=== PATIENT | female | born 1930 | race Caucasian/White ===

== ENCOUNTER 2018-04-08 12:48 | Day surgery (SDC) | payer MEDICARE, OTHER ==
[2018-04-05 18:07] VITALS: BP 109/55; PULSE 91; RESP 28
[~2018-04-08] VITALS: Ht 167.6 cm; Wt 93.6 kg
[~2018-04-08 12:48] MED LIST: PROPOFOL 200 MG INJ ONE
--- NOTE | 2018-04-08 14:28 | PREAC ---
Date/Time of Note Date/Time of Note DATE: 04/08/18 TIME: 14:26 Anesthesia Eval and Record Evaluation Time Pre-Procedure Interview DATE: 04/08/18 TIME: 14:26 Age 88 Sex female NPO: 8 hrs Preoperative diagnosis anemia Planned procedure colonoscopy Past Medical History Past Medical History: Includes Cardio: HTN, Dyslipidemia, IA, CAD, CABG, Arrythmia, CHF Endo: Diabetes Pulm: Smoking Hx, COPD, Other (resp failure) Musculoskeletal: Osteoarthritis Renal: CKD GI: GERD Heme: Anemia Surgery & Anesthesia Issues No known issue Meds Anticoagulation: No Beta Darian within 24 hr: No Reason Beta Darian not given: Pt. not on B-Darian Meds reviewed: Yes Allergies Coded Allergies: No Known Allergy (Unverified , 03/28/18) Allergies Reviewed: Yes Labs/Studies Labs Reviewed: Reviewed by anesthesiologist test: Negative Studies: ECG Pre-procedure Exam Last vitals Vital Signs Date Temp Pulse Resp B/P (MAP) Pulse Ox O2 O2 Flow FiO2 Time Delivery Rate 04/05/18 98.9 91 28 109/55 28 Mechanical 18:07 (73) Ventilator Airway: Adequate mouth opening, Adequate thyromental dist Mallampati: Mallampati II Teeth: Normal Lung: Normal Heart: Normal ASA Physical Status ASA physical status: 3 Emergency: None Planned Anesthetic General/MAC: ETT Pre-operative Attestations Prior to commencing anesthesia and surgery, the patient was re-evaluated, there was verification of: *The patient's identity *The results of appropriate recent lab work and preoperative vital signs *The above evaluation not changing prior to induction *Anesthetic plan, risk benefits, alternative and complications discussed with patient/family; questions answered; patient/family understands, accepts and wishes to proceed. MIGUEL SHRESTHA Apr 08, 2018 14:28
[2018-04-08 15:33] VITALS: BP 131/72; RESP 25
--- NOTE | 2018-04-08 15:36 | HPN ---
Date/Time of Note Date/Time of Note DATE: 04/08/18 TIME: 15:36 Interval H&P Admission Note Pt. seen H&P reviewed: No system changes LORA STANLEY MD Apr 08, 2018 15:36
[2018-04-08 15:38] VITALS: BP 139/70; PULSE 94; RESP 33
[2018-04-08 15:43] VITALS: BP 130/71; PULSE 94; RESP 27
[2018-04-08 15:48] VITALS: BP 135/70; PULSE 92; RESP 24
[2018-04-08 15:53] VITALS: BP 132/73; PULSE 92; RESP 22
== END 2018-04-08 16:08 | disposition other institution (70) ==
LOC: GIL 12:48
PROVIDERS: ATTEND Internal Medicine Gastroenterology
DX: R19.5 Other fecal abnormalities (principal); D12.2 Benign neoplasm of ascending colon; D12.5 Benign neoplasm of sigmoid colon; K64.4 Residual hemorrhoidal skin tags; E78.5 Hyperlipidemia, unspecified; I25.2 Old myocardial infarction; I25.10 Atherosclerotic heart disease of native coronary artery without angina pectoris; I11.0 Hypertensive heart disease with heart failure; I50.9 Heart failure, unspecified; J44.9 Chronic obstructive pulmonary disease, unspecified
CPT/HCPCS: 88305; 94002

== ENCOUNTER 2018-05-01 22:19 | Inpatient (IN) | payer MEDICARE, OTHER ==
[~2018-05-01] VITALS: Ht 165.1 cm; Wt 100.2 kg
[2018-05-01] MEDS ORDERED: IOHEXOL 300MG/ML 150 ML BTL ONE (23:41)
[2018-05-01] MEDS ORDERED: SOD CHLORIDE 0.9% 100 ML ONE (23:41)
[2018-05-02] VITALS (19 sets, daily range): BP systolic 96–119; BP diastolic 51–60; PULSE 85–111; RESP 18–28; Ht 165.1 cm; Wt 100.2 kg
--- NOTE | 2018-05-02 03:15 | ERD ---
ER Documentation Chief Complaint Chief Complaint BIB [facility] transport,from [facility],bleed on trach site HPI This is an 88-year-old trach to vent patient brought in from [facility] for low H&H and possible tracheal bleeding. Patient himself cannot relate any history. History is per transfer sheet and and co op crew. According to paramedics, she had tracheal site oozing for the past few days. Based on the blood test today noted a low H&H and sent her in for further evaluation ROS All systems reviewed and are negative except as per history of present illness. Allergies Allergies: Coded Allergies: No Known Allergy (Unverified , 03/28/18) PMhx/Soc History of Surgery: Yes (coronary bypass, total knee replacement, ) Anesthesia Reaction: No Hx Neurological Disorder: Yes (neuropathy, ) Hx Respiratory Disorders: Yes (copd, TRACH TO VENT ) Hx Cardiac Disorders: Yes (htn, pad, dl, a fib) Hx Psychiatric Problems: No Hx Miscellaneous Medical Probl: No Hx Alcohol Use: No Hx Substance Use: No Hx Tobacco Use: No Smoking Status: Never smoker Physical Exam Vitals Vital Signs Date Temp Pulse Resp B/P (MAP) Pulse Ox O2 O2 Flow FiO2 Time Delivery Rate 05/01/18 99.9 105 18 104/51 99 Mechanical 22:33 (68) Ventilator 05/01/18 99.9 111 18 104/51 100 22:24 (68) Physical Exam Const: No acute distress Head: Atraumatic Eyes: Normal Conjunctiva ENT: Normal External Ears, Nose and Mouth. Neck: Full range of motion. No meningismus. Resp: Clear to auscultation bilaterally Cardio: Regular rate and rhythm, no murmurs Abd: Soft, non tender, non distended. Normal bowel sounds Skin: No petechiae or rashes Back: No midline or flank tenderness Ext: No cyanosis, or edema Neur: Awake and alert Psych: Normal Mood and Affect Result Diagram: 05/01/18225205/01/182253 Results 24 hrs Laboratory Tests Test 05/01/18 22:53 05/01/18 22:54 White Blood Count 20.8 10^3/ul Red Blood Count 1.66 10^6/ul Hemoglobin 5.4 g/dl Hematocrit 17.2 % Mean Corpuscular Volume 103.6 fl Mean Corpuscular Hemoglobin 32.5 pg Mean Corpuscular Hemoglobin Concent 31.4 g/dl Red Cell Distribution Width 17.2 % Platelet Count 370 10^3/UL Mean Platelet Volume 10.0 fl Immature Granulocytes % 1.300 % Neutrophils % % Segmented Neutrophils % (Manual) 86 % Band Neutrophils % (Manual) 2 % Lymphocytes % % Lymphocytes % (Manual) 10 % Monocytes % % Monocytes % (Manual) 1 % Eosinophils % % Eosinophils % (Manual) 1 % Basophils % % Nucleated Red Blood Cells % 0.1 /100WBC Immature Granulocytes # 0.280 10^3/ul Neutrophils # 10^3/ul Neutrophils # (Manual) 18.0 10^3/ul Band Neutrophils # 0.4 10^3/ul Lymphocytes (Manual) 2.0 10^3/ul Lymphocytes # 10^3/ul Monocytes # 10^3/ul Monocytes # (Manual) 0.2 10^3/ul Eosinophils # 10^3/ul Basophils # 10^3/ul Nucleated Red Blood Cells # 10^3/ul Pathologist Review (Hematology) YES Platelet Estimate NORMAL Polychromasia 3+ Hypochromasia 2+ Anisocytosis 1+ Microcytosis 1+ Prothrombin Time 15.4 Sec Prothrombin Time Ratio 1.2 INR International Normalized Ratio 1.21 Activated Partial Thromboplast Time 30.0 Sec Sodium Level 128 mmol/L Potassium Level 4.8 mmol/L Chloride Level 83 mmol/L Carbon Dioxide Level 34 mmol/L Anion Gap 11 Blood Urea Nitrogen 69 mg/dl Creatinine 1.27 mg/dl Est Glomerular Filtrat Rate mL/min mL/min Glucose Level 197 mg/dl Calcium Level 8.5 mg/dl Total Bilirubin 0.2 mg/dl Direct Bilirubin 0.00 mg/dl Indirect Bilirubin 0.2 mg/dl Aspartate Amino Transf (AST/SGOT) 44 IU/L Alanine Aminotransferase (ALT/SGPT) 23 IU/L Alkaline Phosphatase 105 IU/L Total Protein 6.6 g/dl Albumin 2.8 g/dl Globulin 3.80 g/dl Albumin/Globulin Ratio 0.73 Lipase 73 U/L Current Medications Medications Dose Sig/Radha Start Time Status Last (Trade) Ordered Route PRN Stop Time Admin Dose Reason Admin Sodium 100 ml @ ud STK-MED 05/01/18 DC 05/01/18 Chloride ONCE .ROUTE 23:41 23:42 05/01/18 23:42 Iohexol 150 ml STK-MED 05/01/18 DC 05/01/18 (Omnipaque ONCE .ROUTE 23:41 23:42 300mg/ ml) 05/01/18 23:42 Procedures/MDM Emergency department course: Patient seen about by triage nurse. Placed in bed from evaluation. Intravenous access established. Had blood work done. A stat CT scan of the neck with contrast to rule out tracheal artery bleeding. Patient crossmatched for multiple units of blood. Diagnostic data: EKG: Rate/Rhythm: [Normal Sinus Rhythm] QRS, ST, T-waves: [No changes consistent w/ acute ischemia] Impression: [No evidence of ischemia or arrhythmia] Chest X-ray 1V Interpreted by me: Soft Tissue: No acute abnormalities Bones: No acute abnormalities Mediastinum/Cardiac Silhouette/Lungs: [No acute abnormalities] CT neck soft tissue with IV contrast shows possible tracheal artery terminal branch bleeding. Please see the radiologist for dictation full report Medical decision making: This is a 88-year female with low H&H has been crossmatch for 2 units but also has possible tracheal artery bleeding. On-call ENT was consulted and will see the patient in the morning. On-call physician was notified of admission Dr. Ocampo Departure Diagnosis: Primary Impression: Tracheal hemorrhage Condition: Serious JAMES GIRARD May 02, 2018 03:15
[2018-05-02] MEDS ORDERED: LINA5TAB GTB (06:06)
[2018-05-02] MEDS ORDERED: MAGN400O19 GTB (06:06)
[2018-05-02] MEDS ORDERED: FOLI-49 G-TUBE (06:06)
[2018-05-02] MEDS ORDERED: MINE133E23 PR (06:06)
[2018-05-02] MEDS ORDERED: ATOR40TA68 G-TUBE (06:06)
[2018-05-02] MEDS ORDERED: CHLO118L3 TOP (06:06)
[2018-05-02] MEDS ORDERED: PEG15DRO4 OP (06:06)
[2018-05-02] MEDS ORDERED: ALLO100T GTB (06:06)
[2018-05-02] MEDS ORDERED: BUME1TAB G-TUBE (06:06)
[2018-05-02] MEDS ORDERED: CHOL100062 G-TUBE (06:06)
[2018-05-02] MEDS ORDERED: ASPI-535 G-TUBE (06:06)
[2018-05-02] MEDS ORDERED: GLYC30DR4 OP (06:06)
[2018-05-02] MEDS ORDERED: LORA1TAB GTB (06:06)
[2018-05-02] MEDS ORDERED: MIDO5TAB GTB (06:06)
[2018-05-02] MEDS ORDERED: LANT3I SC (06:06)
[2018-05-02] MEDS ORDERED: BISA10SU55 RC (06:06)
[2018-05-02] MEDS ORDERED: LEVO175T6 GTB (06:06)
[2018-05-02] MEDS ORDERED: LANS30CA GTB (06:18)
[2018-05-02] MEDS ORDERED: NOVO3I SC (06:18)
[2018-05-02] MEDS ORDERED: SAN30GM TOP (06:18)
[2018-05-02] MEDS ORDERED: ACET325T45 GTB (06:18)
[2018-05-02] MEDS ORDERED: TUBE5VIA3 ID (06:18)
[2018-05-02] MEDS ORDERED: FENO48TA4 GTB (06:18)
[2018-05-02] MEDS ORDERED: CLOP75TA19 G-TUBE (06:18)
[2018-05-02] MEDS ORDERED: LORA1TAB G-TUBE (07:49)
[2018-05-02] MEDS ORDERED: IPRA3AMP29 INHALATION (07:49)
[2018-05-02] MEDS ORDERED: PENDING SANTYL ORDER FOR WOUND CARE XX PRN (08:00)
[2018-05-02] MEDS ORDERED: ACETAMINOPHEN 325 MG TAB GTB PRN (08:30)
[2018-05-02] MEDS ORDERED: GLUCOSE GEL 15 GRAM TUBE BUCCAL PRN (08:30)
[2018-05-02] MEDS ORDERED: LORAZEPAM 1 MG TAB GTB PRN (08:30)
[2018-05-02] MEDS ORDERED: BISACODYL 10 MG SUPP PR PRN (08:30)
[2018-05-02] MEDS ORDERED: ALBUTEROL/IPRATROPIUM (NEB) 3 ML AMP NEB PRN (08:30)
[2018-05-02] MEDS ORDERED: MAGNESIUM HYDROXIDE 30ML CUP GTB PRN (08:30)
[2018-05-02] MEDS ORDERED: GLUCOSE GEL 15 GRAM TUBE PO PRN ×2 (08:30)
[2018-05-02] MEDS ORDERED: DEXTROSE 50% 50 ML SYRINGE IV PRN ×2 (08:30)
[2018-05-02] MEDS ORDERED: COLLAGENASE 30 GM TUBE TOP PRN (08:30)
[2018-05-02] MEDS ORDERED: GLUCAGON 1 MG INJ IM PRN (08:30)
--- NOTE | 2018-05-02 08:41 | CONS ---
Assessment/Plan Assessment/Plan Assessment/Plan (Daily) 88-year-old female with long-standing tracheostomy tube who presents with bleeding from the tracheostomy stoma. Upon endoscopic examination there is no blood in the trachea and no active bleeding. Upon removal of the tracheostomy tube the stoma appears in excellent condition and there is no ongoing bleeding. Endoscopic examination of the upper airway demonstrates normal nasal passage, pharynx and larynx. Given these findings it seems quite unlikely that she has a TI fistula as the bleeding from such a problem would not be subtle. If the patient has recurrent bleeding from the tracheostomy I would recommend consulting interventional radiology for more precise evaluation of the vasculatu re and possible embolization procedure. Antoni Minor MD, S Otolaryngology-Head and Neck Surgery [facility] Office: Consultation Date/Type/Reason Admit Date/Time May 02, 2018 at 01:32 Date of Consultation: May 02, 2018 Type of Consult Otolaryngology Reason for Consultation Tracheostomy bleeding Requesting Provider: JAMES GIRARD Date/Time of Note DATE: 05/02/18 TIME: 08:36 Hx of Present Illness Consultation - [facility] Otol[facility]ology-Head and Neck Surgery HPI: 88-year-old female with long-standing tracheostomy, size 6 DCT, who was transferred to the emergency room overnight due to bleeding from the tracheostomy. CTA demonstrated suspicion for an arterial bleed from the external carotid artery. The patient has a low hemoglobin level as well. Upon examination by the ED physician the patient was noted to be stable with no bleeding. I was consulted to further assess the patient given these findings. Patient is alert but unable to communicate and history is gathered from records review, physicians, and nursing staff. Reportedly the patient is also having vaginal bleeding. PAST MEDICAL HISTORY: Sacral ulcer Dysphasia Peripheral vascular disease COPD Hypothyroidism Diabetes type 2 Hyperlipidemia Anxiety Hypertension Heart failure Gout Chronic kidney disease PAST SURGICAL HISTORY: Coronary artery bypass graft FAMILY HISTORY: Unobtainable REVIEW OF SYSTEMS: Could not be completed PHYSICAL EXAM: The patient underwent a physical examination as described below. The pertinent positive and negative findings are summarized after the description of the examination. Constitutional: The patient's developmental and nutritional status were assessed. The patient's voice quality was assessed. Head and Face: The head and face were inspected for deformities. The salivary glands were palpated. Facial strength was assessed bilaterally. Eyes: Extraocular movements and primary gaze alignment were assessed. Ears, Nose, Mouth & Throat: The external auditory canals and pinnae were examined. The nasal septum, mucosa, and turbinates were inspected by anterior rhinoscopy. The lips, teeth, and gums were examined for abnormalities. The oral mucosa, tongue, palate, tonsils, lateral and posterior pharynx were inspected for the presence of asymmetry or mucosal lesions. Neck: The tracheal position was noted, and the neck was palpated to determine if there were any asymmetries, abnormal neck masses, or thyromegaly. Respiratory: The nature of the breathing and chest expansion/symmetry was observed. Cardiovascular: The patient was examined to determine the presence of any edema or jugular venous distension. Abdomen: The contour of the abdomen was noted. Lymphatic: The patient was examined for supraclavicular lymphadenopathy. Musculoskeletal: The patient was inspected for the presence of skeletal deformities. Extremities: The extremities were examined for any clubbing or cyanosis. Skin: The skin was examined for inflammatory or neoplastic conditions. Neurologic: The patient's orientation, mood, and affect were noted. The cranial nerve functions were examined (II-VII, IX-XII). Pertinent positive and negative findings on physical examination: Ears: AU pinnae WNL, no otorrhea. Nose: Grossly normal external appearance. Normal mucosa. No epistaxis/rhinorrhea. OC/OP: MMM, tongue midline. Symmetric palate elevation. No mucosal lesions observed. Neck: Tracheostomy size [address] Stoma clean and dry. Trace yellow mucus. No lymphadenopathy appreciated. Past Medical History Home Meds Reported Medications Ipratropium-Albuterol (Ipratropium-Albuterol) 0.5-3 Mg/3 Ml Ampul.neb, 3 ML INHALATION Q6 PRN for SHORTNESS OF BREATH, #30 VIAL 05/02/18 Lorazepam* (Lorazepam*) 1 Mg Tablet, 1 MG G-TUBE Q4H PRN for ANXIETY, #30 TAB 05/02/18 Insulin Aspart* (Novolog Insulin Pen*) 100 Unit/Ml Soln, 0 SC .SLIDING SCALE AC, EA INJECT PER SLIDING SCALE;IF 0-149= 0 UNIT; 10-199= 3UNITS; 200-249= 4 UNITS; 250-299= 7UNITS; 300-349= 10UNITS; 350-399=12UNITS; MORE THAN 400 GIVE 12 UNITS, AND NOTIFY , SUBCUTANEOUSLY EVERY 6HOURS FOR DM 05/02/18 Acetaminophen* (Acetaminophen*) 325 Mg Tablet, 650 MG GTB Q4H PRN for PAIN AND OR ELEVATED TEMP, #30 TAB 05/02/18 Fenofibrate Nanocrystallized* (Fenofibrate*) 48 Mg Tablet, 48 MG GTB DAILY for HYPERLIPIDIMIA, TAB 05/02/18 Collagenase* (Santyl*) 30 Gm Oint..gm., 1 APPLIC TOP .SOILED PRN for SOILED for 21 Days, #1 TUB 05/02/18 Lansoprazole* (Lansoprazole*) 30 Mg Capsule.dr, 30 MG GTB BID for GERD, CAP 05/02/18 Clopidogrel Bisulfate* (Clopidogrel Bisulfate*) 75 Mg Tablet, 75 MG G-TUBE DAILY for DVT, #30 TAB 05/02/18 Chlorhexidine Gluconate* (Chlorhexidine Gluconate*) 118 Ml Liquid, 15 ML TOP BID, ML GIVE 15ML BY MOUTH TWO TIMES A DAY FOR MOUTH CARE SWAB AND SUCTION 05/02/18 Magnesium Hydroxide* (Milk Of Magnesia*) 400 Mg/5 Ml Oral.susp, 30 ML GTB DAILY PRN for CONSTIPATION, ML 05/02/18 Midodrine* (Midodrine*) 5 Mg Tablet, 5 MG GTB TID for hypotension, TAB hold for systolic BP above 130 05/02/18 Linagliptin (TRADJENTA) 5 Mg Tablet, 5 MG GTB DAILY, TAB 05/02/18 Levothyroxine Sodium* (Levothyroxine Sodium*) 175 Mcg Tablet, 175 MCG GTB BEFORE BREAKFAST for HYPOTHYROIDISM, #30 TAB 05/02/18 Insulin Glargine* (Lantus*) 100 Unit/Ml Soln, 12 UNIT SC BID, #1 VIAL 05/02/18 Folic Acid* (Folic Acid*) 1 Mg Tablet, 1 MG G-TUBE DAILY for SUPPLEMENT, TAB 05/02/18 Mineral Oil* (Fleet* Mineral Oil Enema) 133 Ml Oil, 133 ML NV NEEDED PRN for CONSTIPATION, ENEMA 05/02/18 Bisacodyl (Dulcolax) 10 Mg Supp.rect, 10 MG RC Q48H PRN for CONSTIPATION, SUPP.RECT 05/02/18 Cholecalciferol* (Vitamin D3*) 1,000 Unit Tablet, 1000 UNIT G-TUBE DAILY for SUPPLEMENT, TAB GIVE 5 TABLETS VIA GTUBE DAILY 05/02/18 Bumetanide* (Bumetanide*) 1 Mg Tablet, 1 MG G-TUBE DAILY for DIURETIC, TAB 05/02/18 Atorvastatin* (Atorvastatin*) 40 Mg Tablet, 40 MG G-TUBE QHS for HYPERLPIDIMIA, #30 TAB 05/02/18 Lorazepam* (Lorazepam*) 1 Mg Tablet, 1 MG GTB Q6 PRN for ANXIETY, #60 TAB 05/02/18 Aspirin Ec (Aspir 81) 81 Mg Tablet.dr, 81 MG G-TUBE DAILY, #30 TAB 05/02/18 Glycerin/Propylene Glycol (ARTIFICIAL TEARS DROPS) 30 Ml Drops, 30 ML OP PRN for DRY EYES, BOTTLE 05/02/18 Peg 400/Hypromellose/Glycerin (ARTIFICIAL TEARS DROPS) 15 Ml Drops, 2 DROP OP Q2H PRN for dry eyes, BOTTLE 05/02/18 Allopurinol* (Allopurinol*) 100 Mg Tablet, 100 MG GTB DAILY for GOUT, TAB 05/02/18 Medications Current Medications Miscellaneous Information (Pending [facility] Order For Wound Care) This patient monroy... PRN PRN XX WOUND CARE; Start 05/02/18 at 08:00 Diagnostic Test (Pha) (Accu-Chek) 1 ea 02 XX ; Start 05/03/18 at 02:00 Insulin Glargine (Lantus) 12 units BID SC ; Start 05/02/18 at 09:00 Insulin Aspart (Novolog Insulin Pen) NOVOLOG *MILD* ALGORITHM WITH MEALS BEDTIME SC ; Start 05/02/18 at 11:50 Miscellaneous Information 1 ea NOTE XX ; Start 05/02/18 at 08:30 Glucose (Glutose) 15 gm Q15M PRN PO DECREASED GLUCOSE; Start 05/02/18 at 08:30 Glucose (Glutose) 22.5 gm Q15M PRN PO DECREASED GLUCOSE; Start 05/02/18 at 08:30 Dextrose (D50w Syringe) 25 ml Q15M PRN IV DECREASED GLUCOSE; Start 05/02/18 at 08:30 Dextrose (D50w Syringe) 50 ml Q15M PRN IV DECREASED GLUCOSE; Start 05/02/18 at 08:30 Glucagon (Glucagen) 1 mg Q15M PRN IM DECREASED GLUCOSE; Start 05/02/18 at 08:30 Glucose (Glutose) 15 gm Q15M PRN BUCCAL DECREASED GLUCOSE; Start 05/02/18 at 08:30 Acetaminophen (Tylenol Tab) 650 mg Q4H PRN GTB MILD PAIN(1-3)OR ELEVATED TEMP; Start 05/02/18 at 08:30; Status UNV Allopurinol (Zyloprim) 100 mg DAILY GTB ; Start 05/02/18 at 09:00; Status UNV Atorvastatin Calcium (Lipitor) 40 mg QHS GTB ; Start 05/02/18 at 21:00; Status UNV Bisacodyl (Dulcolax Supp) 10 mg Q48H PRN NV CONSTIPATION; Start 05/02/18 at 08:30; Status UNV Bumetanide (Bumex) 1 mg DAILY GTB ; Start 05/02/18 at 09:00; Status UNV Cholecalciferol (Vitamin D) 1,000 unit DAILY GTB ; Start 05/02/18 at 09:00; Status UNV Collagenase (Santyl) 1 applic SOILED PRN TOP SOILED; Start 05/02/18 at 08:30; Status UNV Fenofibrate (Tricor) 48 mg DAILY GTB ; Start 05/02/18 at 09:00; Status UNV Folic Acid (Folic Acid) 1 mg DAILY GTB ; Start 05/02/18 at 09:00; Status UNV Albuterol/ Ipratropium (Duoneb) 3 ml Q6 PRN NEB SHORTNESS OF BREATH; Start 05/02/18 at 08:30; Status UNV Lansoprazole (Prevacid) 30 mg BID GTB ; Start 05/02/18 at 09:00; Status UNV Levothyroxine Sodium (Synthroid) 175 mcg BEFORE BREAKFAST GTB ; Start 05/03/18 at 07:00; Status UNV Linagliptin (Tradjenta) 5 mg DAILY GTB ; Start 05/02/18 at 09:00; Status UNV Lorazepam (Ativan) 1 mg Q4H PRN GTB ANXIETY; Start 05/02/18 at 08:30; Status UNV Magnesium Hydroxide (Milk Of Mag) 30 ml DAILY PRN GTB CONSTIPATION; Start 05/02/18 at 08:30; Status UNV Midodrine (Proamatine) 5 mg TID GTB ; Start 05/02/18 at 09:00; Status UNV Diagnostic Test (Pha) (Accu-Chek) 1 ea AC MEALS AND BEDTIME XX ; Start 05/02/18 at 11:20; Status UNV Cefepime HCl 50 ml @ 100 mls/hr Q12 IVPB ; Start 05/02/18 at 09:00; Status UNV Allergies: Coded Allergies: No Known Allergy (Unverified , 05/02/18) Social History Alcohol Use: none Smoking Status: Unknown if ever smoked Drug Use: none Exam/Review of Systems Exam Vitals Vital Signs Date Temp Pulse Resp B/P (MAP) Pulse Ox O2 O2 Flow FiO2 Time Delivery Rate 05/02/18 98.5 109 18 107/54 98 Mechanical 08:04 (71) Ventilator 05/02/18 30 05:45 Exam Procedure: Tracheobronchoscopy, through established tracheostomy (CPT 34004) Indications: Tracheostomy dependence; bleeding of unknown source Procedural Detail: A fiberoptic bronchoscope was passed through the tracheotomy into the trachea. Abnormalities were noted. The nancy was visualized, followed by further insertion of the scope to the main stem bronchus level to evaluate the bronchi as well as the orifices of the sub-segmental bronchi. Having completed this the operation was completed and the scope withdrawn atraumatically. Surgeon: Antoni Minor M.D., M.H.S. ENDOSCOPIC FINDINGS: BRONCHOSCOPY >Tracheostoma: well-maintained, clean, no granulation tissue. Trace yellow m ucus. Trace flecks of blood along inner aspect of stoma visualized only with trach tube removed. >Trachea: patent, no granulation tissue, minimal secretions >Nancy: sharp, no lesion, minimal secretions >Mainstem Bronchi: free of obstruction, minimal secretions Complications: None Estimated blood loss: None Procedure: Fiberoptic laryngoscopy (CPT 75620) Indications: Bleeding of unknown source; tracheotomy dependence: Procedural Detail: The patient was informed that endoscopy would be needed to further evaluate the patient's complaint, and that I would be performing a procedure to evaluate the throat. The side-effects of the topical sprays were discussed. Once a verbal consent was given for the procedure, the topical spray was introduced. After obtaining adequate decongestion of the nasal mucosa with 1% phenylephrine and adequate anesthesia with 2% topical tetracaine, a fiberoptic endoscope was introduced transnasally. The endoscope was withdrawn and the patient tolerated the procedure well. Surgeon: Antoni Minor M.D., M.H.S. ENDOSCOPIC FINDINGS: >Nasopharynx: Eustachian tube orifices clear. Nasopharynx clear. >Oropharynx: Base of tongue, vallecula, and pharyngeal brown clear. >Hypopharynx: Post-cricoid, piriform sinuses, and posterior pharyngeal wall clear. No pooling of secretions. >Supraglottis: Arytenoids, A-E folds, and epiglottis clear. >Glottis: Bilateral vocal folds mobile and symmetric, although limited patient participation. No nodules, ulcers, or masses seen. >Subglottis: Immediate subglottis clear. Tracheotomy tube noted. Complications: None Estimated blood loss: None Results Result Diagram: 05/01/18 2253 05/01/18 2254 Results 24hrs Laboratory Tests Test 05/01/18 22:53 05/01/18 22:54 White Blood Count 20.8 #H Red Blood Count 1.66 #L Hemoglobin 5.4 #*L Hematocrit 17.2 #L Mean Corpuscular Volume 103.6 H Mean Corpuscular Hemoglobin 32.5 Mean Corpuscular Hemoglobin Concent 31.4 L Red Cell Distribution Width 17.2 H Platelet Count 370 Mean Platelet Volume 10.0 Immature Granulocytes % 1.300 H Neutrophils % Segmented Neutrophils % (Manual) 86 H Band Neutrophils % (Manual) 2 Lymphocytes % Lymphocytes % (Manual) 10 L Monocytes % Monocytes % (Manual) 1 Eosinophils % Eosinophils % (Manual) 1 Basophils % Nucleated Red Blood Cells % 0.1 H Immature Granulocytes # 0.280 H Neutrophils # Neutrophils # (Manual) 18.0 H Band Neutrophils # 0.4 Lymphocytes (Manual) 2.0 Lymphocytes # Monocytes # Monocytes # (Manual) 0.2 L Eosinophils # Basophils # Nucleated Red Blood Cells # Pathologist Review (Hematology) YES Platelet Estimate NORMAL Polychromasia 3+ Hypochromasia 2+ Anisocytosis 1+ Microcytosis 1+ Prothrombin Time 15.4 H Prothrombin Time Ratio 1.2 INR International Normalized Ratio 1.21 Activated Partial Thromboplast Time 30.0 Sodium Level 128 L Potassium Level 4.8 Chloride Level 83 L Carbon Dioxide Level 34 H Anion Gap 11 Blood Urea Nitrogen 69 H Creatinine 1.27 H Est Glomerular Filtrat Rate mL/min Glucose Level 197 Calcium Level 8.5 Total Bilirubin 0.2 Direct Bilirubin 0.00 Indirect Bilirubin 0.2 Aspartate Amino Transf (AST/SGOT) 44 Alanine Aminotransferase (ALT/SGPT) 23 Alkaline Phosphatase 105 Total Protein 6.6 Albumin 2.8 L Globulin 3.80 H Albumin/Globulin Ratio 0.73 Lipase 73 Imaging Imaging CTA FINDINGS: Aortic arch and great vessels: No arch aneurysm or dissection flap. The innominate, left common carotid and left subclavian arteries have separate origins from the aortic arch. No hemodynamically significant origin stenosis. Normal right common carotid artery origin. Anterior circulation: Contrast opacifies the left and right common, internal and external carotid arteries. Greater than 70% proximal left ICA due to calcified and noncalcified plaque. 50 - 69% stenosis origin right ICA due to calcified plaque. Right internal carotid artery measures 3.9 mm. Left internal carotid artery measures 4.0 mm. There is a small blush of contrast in the soft tissues to the left of the tracheostomy site (series 2 image 209), likely representing the site of tracheostomy hemorrhage. Suspect arterial source, arising from the distal branch of the left ECA. Posterior circulation: Contrast opacifies the left and right vertebral arteries. The left vertebral artery is dominant. No hemodynamically significant stenosis at the vertebral artery origins. No dissection flap. 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 IMPRESSION: 1. This small blush of contrast noted in the deep soft tissues to the left of the tracheostomy site, representing the site of tracheostomy hemorrhage. I suspect this is arterial, arising from a distal branch of the left external carotid artery. 2. 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 3. Focal 50 - 69% stenosis origin right ICA. Medications Medication Current Medications Miscellaneous Information ([facility] This patient monroy... PRN PRN XX WOUND CARE; Start 05/02/18 at 08:00 Diagnostic Test (Pha) (Accu-Chek) 1 ea 02 XX ; Start 05/03/18 at 02:00 Insulin Glargine (Lantus) 12 units BID SC ; Start 05/02/18 at 09:00 Insulin Aspart (Novolog Insulin Pen) NOVOLOG *MILD* ALGORITHM WITH MEALS BEDTIME SC ; Start 05/02/18 at 11:50 Miscellaneous Information 1 ea NOTE XX ; Start 05/02/18 at 08:30 Glucose (Glutose) 15 gm Q15M PRN PO DECREASED GLUCOSE; Start 05/02/18 at 08:30 Glucose (Glutose) 22.5 gm Q15M PRN PO DECREASED GLUCOSE; Start 05/02/18 at 08:30 Dextrose (D50w Syringe) 25 ml Q15M PRN IV DECREASED GLUCOSE; Start 05/02/18 at 08:30 Dextrose (D50w Syringe) 50 ml Q15M PRN IV DECREASED GLUCOSE; Start 05/02/18 at 08:30 Glucagon (Glucagen) 1 mg Q15M PRN IM DECREASED GLUCOSE; Start 05/02/18 at 08:30 Glucose (Glutose) 15 gm Q15M PRN BUCCAL DECREASED GLUCOSE; Start 05/02/18 at 08:30 Acetaminophen (Tylenol Tab) 650 mg Q4H PRN GTB MILD PAIN(1-3)OR ELEVATED TEMP; Start 05/02/18 at 08:30; Status UNV Allopurinol (Zyloprim) 100 mg DAILY GTB ; Start 05/02/18 at 09:00; Status UNV Atorvastatin Calcium (Lipitor) 40 mg QHS GTB ; Start 05/02/18 at 21:00; Status UNV Bisacodyl (Dulcolax Supp) 10 mg Q48H PRN NV CONSTIPATION; Start 05/02/18 at 08:30; Status UNV Bumetanide (Bumex) 1 mg DAILY GTB ; Start 05/02/18 at 09:00; Status UNV Cholecalciferol (Vitamin D) 1,000 unit DAILY GTB ; Start 05/02/18 at 09:00; Status UNV Collagenase (Santyl) 1 applic SOILED PRN TOP SOILED; Start 05/02/18 at 08:30; Status UNV Fenofibrate (Tricor) 48 mg DAILY GTB ; Start 05/02/18 at 09:00; Status UNV Folic Acid (Folic Acid) 1 mg DAILY GTB ; Start 05/02/18 at 09:00; Status UNV Albuterol/ Ipratropium (Duoneb) 3 ml Q6 PRN NEB SHORTNESS OF BREATH; Start 05/02/18 at 08:30; Status UNV Lansoprazole (Prevacid) 30 mg BID GTB ; Start 05/02/18 at 09:00; Status UNV Levothyroxine Sodium (Synthroid) 175 mcg BEFORE BREAKFAST GTB ; Start 05/03/18 at 07:00; Status UNV Linagliptin (Tradjenta) 5 mg DAILY GTB ; Start 05/02/18 at 09:00; Status UNV Lorazepam (Ativan) 1 mg Q4H PRN GTB ANXIETY; Start 05/02/18 at 08:30; Status UNV Magnesium Hydroxide (Milk Of Mag) 30 ml DAILY PRN GTB CONSTIPATION; Start 05/02/18 at 08:30; Status UNV Midodrine (Proamatine) 5 mg TID GTB ; Start 05/02/18 at 09:00; Status UNV Diagnostic Test (Pha) (Accu-Chek) 1 ea AC MEALS AND BEDTIME XX ; Start 05/02/18 at 11:20; Status UNV Cefepime HCl 50 ml @ 100 mls/hr Q12 IVPB ; Start 05/02/18 at 09:00; Status UNV ANTONI MINOR MD May 02, 2018 08:41
--- NOTE | 2018-05-02 08:42 | HP ---
DATE OF ADMISSION: 05/02/2018 CHIEF COMPLAINT: Epistaxis, tracheal bleed. HISTORY OF PRESENT ILLNESS: This is an 88-year-old female with a past medical history of coronary ar miriam disease, status post coronary artery bypass graft 11 years ago, history of ventilator dependent respiratory failure, history of dysphagia, history of COPD, history of neuropathy, history of encepha lopathy, who presents to [facility] Emergency Room from care home facility. The patient is residing at and is noted to have bleeding around the tracheal site. The patient as a result had antiplatelet therapy held; however, the patient's bleeding. The patient was subsequ ently transferred to [facility]. Upon arrival, patient had a CT angio of the neck, which showed evidence of possible arterial bleeding from the distal branch of the left external crews tid artery. The patient also noted to have 70% stenosis of the proximal left ICA. The patient was t yped and crossed 2 units PRBC as hemoglobin levels noted to be 5.4 g/dL and admitted to telemetry for evaluation. Upon my evaluation of the patient at this time, the patient is lethargic, alert and oriented to name only. No other acute events noted. Also note the patient was reported having possible vaginal bleed ing. PAST MEDICAL HISTORY: History of chronic obstructive pulmonary disease, history of coronary artery d isease, history of hypertension, peripheral arterial disease, dyslipidemia, atrial fibrillation. PAST SURGICAL HISTORY: Status post knee replacement, status post CABG. FAMILY HISTORY: No family history of kidney disease. SOCIAL HISTORY: Lives at a skilled nurse facility. MEDICATIONS: The patient's medications have been reviewed and reconciled. ALLERGIES: No known drug allergies. REVIEW OF SYSTEMS: Unable to do adequate review of systems. The patient is nonverbal. Pertinent po sitives as stated in HPI, as obtained by reviewing medical records, speaking to hospital staff, other goode negative. PHYSICAL EXAMINATION: VITAL SIGNS: Blood pressure is 107/54, respiration 18, pulse 109, temperature 98.5. HEENT: Head is normocephalic. NECK: Shows trach with noted blood from tracheal site. HEART: Regular rate. LUNGS: Show diminished breath sounds at base. ABDOMEN: Soft, nontender to palpation. Positive PEG. EXTREMITIES: Negative for clubbing, cyanosis. Positive edema. DERMATOLOGIC: No rashes. MUSCULOSKELETAL: Positive wounds. NEUROLOGIC: Limited exam, but no obvious focal deficits. MEDICATIONS: The patient's medications have been reviewed. LABORATORY DATA: Shows white count 28.8, hemoglobin 5.4, platelet count is 670. Sodium 128, potassi um 4.8, chloride 83, BUN 69, creatinine 1.27. IMAGING STUDIES: CT head and neck was reviewed. ASSESSMENT AND PLAN: This is an 88-year-old female who presents with: 1. Acute tracheal bleed. Etiology is unclear, possibility of arterial bleeding from the left safety lamp keeper al carotid artery is a consideration, given CT angio. Plan at this point is to have an urgent ENT ev aluation by Dr. Minor. Patient will be typed and crossed 2 units of PRBC. We will monitor seria l H and H levels. Antiplatelet therapy has been held. Will continue to monitor closely. 2. Ventilator dependent respiratory failure. Vent settings have been reviewed. We will place a pul monary consult for evaluation. 3. Systemic inflammatory response syndrome, possible sepsis. The patient has elevated white count. Unclear if this is infectious or reactive. Plan is to check blood cultures, urine culture. We will start patient on empiric antibiotic therapy. Check a lactic acid level and procalcitonin level, richard ce an ID consult for evaluation. 4. Dysphagia, status PEG, continue tube feeding. 5. Anemia secondary to tracheal bleed, possible vaginal bleed. The patient is receiving blood trans fusion. Continue to monitor hemoglobin and hematocrit. 6. Questionable vaginal bleed. Patient was noted to have black discharge. Plan is to get a vaginal ultrasound. Will consider PARACHUTE SUPERVISOR evaluation. 7. Hyponatremia, etiology secondary to chronic kidney disease. Will limit free water flushes, monit or serial sodium levels. 8. Acute kidney injury on top of chronic kidney disease, etiology may be secondary to hemodynamics. Plan is to check urinalysis with microanalysis, check urine electrolytes. We will monitor renal fun ction closely. 9. Volume overload, likely secondary to acute heart failure. The patient is currently on diuretic t herapy. We will continue if hemodynamically stable, will place a cardiology consult for evaluation. 10. Diabetes. Continue current insulin regimen. 11. Dyslipidemia. Continue statin therapy. 12. History of coronary artery disease, status post coronary artery bypass graft. Continue medical management. Holding antiplatelet therapy in the setting of bleed. 13. History of peripheral arterial disease. 14. Gastroesophageal reflux disease. Continue proton pump inhibitor. 15. Hypothyroidism. Continue Synthroid. Please note, I discussed the case in detail with the patient's daughter. An additional 30 minutes of time was spent discussing code status. The patient is DNR status. Dictated By: ROLY MACKAY DO NR/NTS Conf#: [id number] DID#: [id number] CC: SAMY PHILLIPS DO;*EndCC*
[2018-05-02] MEDS: FOLIC ACID 1 MG TAB GTB SCH (09:00)
[2018-05-02] MEDS ORDERED: BUMETANIDE 1 MG TAB GTB SCH (09:00)
--- NOTE | 2018-05-02 09:05 | CONS ---
Assessment/Plan Assessment/Plan Hospital Course (Demo Recall) Atrial fibrillation rapid ventricular response Tracheal bleeding possibly arterial Hypoxemic respiratory failure with tracheostomy Coronary arteries are going bypass graft History of hypertension Peripheral vascular disease Diabetes Dysphagia status post PEG placement Chronic congestive heart failure/anasarca Severe anemia Recommendations: Patient off of any anticoagulation or aspirin due to active bleeding Bleeding workup as per ENT and internal medicine team Echocardiogram has been ordered Diabetic control with insulin as per internal medicine Statin will be continued as well I will give a dose of digoxin to try to control the heart rate better Transfusion is being given as we speak Thank you for his referral will continue to monitor with you YVON WATTERS MD [facility] Consultation Date/Type/Reason Admit Date/Time May 02, 2018 at 01:32 Date of Consultation: May 02, 2018 Type of Consult Cardiology Reason for Consultation AFIB Requesting Provider: ROLY MACKAY DO Date/Time of Note DATE: 05/02/18 TIME: 08:56 Hx of Present Illness Interventional cardiology consultation note Chief complaint: Tracheal bleeding Reason for consult: Atrial fibrillation History of present illness: Thank you for this referral. History was obtained from the discussion with the staff and physician review of the old chart. Patient himself is not able to provide any history to me. This is a 88-year-old female with multiple complicated medical history surgical tracheostomy, coronary artery disease status coronary bypass graft was admitted because of severe anemia and tracheal bleeding. Patient was noted to be in atrial fibrillation rapid ventricular response and was kindly asked to evaluate and treat. Patient herself is not able to provide any history to me. Review of the old chart shows that patient was admitted initially in February 20 with syncope as well as of consciousness [facility] and [facility] [place]. She was noted to be in respiratory failure and required to be on BiPAP and" to be intubated on February 25 she had bronchoscopy in February 28 and extubation on March 06. However she had to be reintubated and required to have tracheostomy on March 18 she was recently transferred to [place] and after bolus to [facility]. However was brought in overnight because of tracheal bleeding and severe anemia. I am not sure if the patient ever has had atrial fibrillation in the past review of the old chart does not show it. But currently patient has been atrial fibrillation heart rate has been around 100 Allergies: No known drug allergies Medications were reviewed as per medical reconciliation sheet Family history: No reported history of coronary artery disease Social history: Lives in a prison now. No reports of any active tobacco alcohol drug use. Past medical history: Coronary artery disease with history of coronary bypass graft. Diabetes, hypertension, congestive heart failure/anasarca, thyroid disorder, dyslipidemia, Reported history of peripheral vascular disease, Respiratory failure with tracheostomy Dysphagia to the PEG placement Past surgical history: Coronary artery bypass graft, total knee replacement, tracheostomy and PEG placement and bronchoscopy as above mentioned Review of system: As above only the basic was obtained. Patient nonverbal and bedridden Past Medical History Home Meds Reported Medications Ipratropium-Albuterol (Ipratropium-Albuterol) 0.5-3 Mg/3 Ml Ampul.neb, 3 ML INHALATION Q6 PRN for SHORTNESS OF BREATH, #30 VIAL 05/02/18 Lorazepam* (Lorazepam*) 1 Mg Tablet, 1 MG G-TUBE Q4H PRN for ANXIETY, #30 TAB 05/02/18 Insulin Aspart* (Novolog Insulin Pen*) 100 Unit/Ml Soln, 0 SC .SLIDING SCALE AC, EA INJECT PER SLIDING SCALE;IF 0-149= 0 UNIT; 10-199= 3UNITS; 200-249= 4 UNITS; 250-299= 7UNITS; 300-349= 10UNITS; 350-399=12UNITS; MORE THAN 400 GIVE 12 UNITS, AND NOTIFY MD, SUBCUTANEOUSLY EVERY 6HOURS FOR DM 05/02/18 Acetaminophen* (Acetaminophen*) 325 Mg Tablet, 650 MG GTB Q4H PRN for PAIN AND OR ELEVATED TEMP, #30 TAB 05/02/18 Fenofibrate Nanocrystallized* (Fenofibrate*) 48 Mg Tablet, 48 MG GTB DAILY for HYPERLIPIDIMIA, TAB 05/02/18 Collagenase* (Santyl*) 30 Gm Oint..gm., 1 APPLIC TOP .SOILED PRN for SOILED for 21 Days, #1 TUB 05/02/18 Lansoprazole* (Lansoprazole*) 30 Mg Capsule.dr, 30 MG GTB BID for GERD, CAP 05/02/18 Clopidogrel Bisulfate* (Clopidogrel Bisulfate*) 75 Mg Tablet, 75 MG G-TUBE DAILY for DVT, #30 TAB 05/02/18 Chlorhexidine Gluconate* (Chlorhexidine Gluconate*) 118 Ml Liquid, 15 ML TOP BID, ML GIVE 15ML BY MOUTH TWO TIMES A DAY FOR MOUTH CARE SWAB AND SUCTION 05/02/18 Magnesium Hydroxide* (Milk Of Magnesia*) 400 Mg/5 Ml Oral.susp, 30 ML GTB DAILY PRN for CONSTIPATION, ML 05/02/18 Midodrine* (Midodrine*) 5 Mg Tablet, 5 MG GTB TID for hypotension, TAB hold for systolic BP above 130 05/02/18 Linagliptin (TRADJENTA) 5 Mg Tablet, 5 MG GTB DAILY, TAB 05/02/18 Levothyroxine Sodium* (Levothyroxine Sodium*) 175 Mcg Tablet, 175 MCG GTB BEFORE BREAKFAST for HYPOTHYROIDISM, #30 TAB 05/02/18 Insulin Glargine* (Lantus*) 100 Unit/Ml Soln, 12 UNIT SC BID, #1 VIAL 05/02/18 Folic Acid* (Folic Acid*) 1 Mg Tablet, 1 MG G-TUBE DAILY for SUPPLEMENT, TAB 05/02/18 Mineral Oil* (Fleet* Mineral Oil Enema) 133 Ml Oil, 133 ML NE NEEDED PRN for CONSTIPATION, ENEMA 05/02/18 Bisacodyl (Dulcolax) 10 Mg Supp.rect, 10 MG RC Q48H PRN for CONSTIPATION, SUPP.RECT 05/02/18 Cholecalciferol* (Vitamin D3*) 1,000 Unit Tablet, 1000 UNIT G-TUBE DAILY for SUPPLEMENT, TAB GIVE 5 TABLETS VIA GTUBE DAILY 05/02/18 Bumetanide* (Bumetanide*) 1 Mg Tablet, 1 MG G-TUBE DAILY for DIURETIC, TAB 05/02/18 Atorvastatin* (Atorvastatin*) 40 Mg Tablet, 40 MG G-TUBE QHS for HYPERLPIDIMIA, #30 TAB 05/02/18 Lorazepam* (Lorazepam*) 1 Mg Tablet, 1 MG GTB Q6 PRN for ANXIETY, #60 TAB 05/02/18 Aspirin Ec (Aspir 81) 81 Mg Tablet.dr, 81 MG G-TUBE DAILY, #30 TAB 05/02/18 Glycerin/Propylene Glycol (ARTIFICIAL TEARS DROPS) 30 Ml Drops, 30 ML OP PRN for DRY EYES, BOTTLE 05/02/18 Peg 400/Hypromellose/Glycerin (ARTIFICIAL TEARS DROPS) 15 Ml Drops, 2 DROP OP Q2H PRN for dry eyes, BOTTLE 05/02/18 Allopurinol* (Allopurinol*) 100 Mg Tablet, 100 MG GTB DAILY for GOUT, TAB 05/02/18 Medications Current Medications Miscellaneous Information [facility] This patient monroy... PRN PRN XX WOUND CARE; Start 05/02/18 at 08:00 Diagnostic Test (Pha) (Accu-Chek) 1 ea 02 XX ; Start 05/03/18 at 02:00 Insulin Glargine (Lantus) 12 units BID SC ; Start 05/02/18 at 09:00 Insulin Aspart (Novolog Insulin Pen) NOVOLOG *MILD* ALGORITHM WITH MEALS BEDTIME SC ; Start 05/02/18 at 11:50 Miscellaneous Information 1 ea NOTE XX ; Start 05/02/18 at 08:30 Glucose (Glutose) 15 gm Q15M PRN PO DECREASED GLUCOSE; Start 05/02/18 at 08:30 Glucose (Glutose) 22.5 gm Q15M PRN PO DECREASED GLUCOSE; Start 05/02/18 at 08:30 Dextrose (D50w Syringe) 25 ml Q15M PRN IV DECREASED GLUCOSE; Start 05/02/18 at 08:30 Dextrose (D50w Syringe) 50 ml Q15M PRN IV DECREASED GLUCOSE; Start 05/02/18 at 08:30 Glucagon (Glucagen) 1 mg Q15M PRN IM DECREASED GLUCOSE; Start 05/02/18 at 08:30 Glucose (Glutose) 15 gm Q15M PRN BUCCAL DECREASED GLUCOSE; Start 05/02/18 at 08:30 Acetaminophen (Tylenol Tab) 650 mg Q4H PRN GTB MILD PAIN(1-3)OR ELEVATED TEMP; Start 05/02/18 at 08:30; Status UNV Allopurinol (Zyloprim) 100 mg DAILY GTB ; Start 05/02/18 at 09:00; Status UNV Atorvastatin Calcium (Lipitor) 40 mg QHS GTB ; Start 05/02/18 at 21:00; Status UNV Bisacodyl (Dulcolax Supp) 10 mg Q48H PRN NE CONSTIPATION; Start 05/02/18 at 08:30; Status UNV Bumetanide (Bumex) 1 mg DAILY GTB ; Start 05/02/18 at 09:00; Status UNV Cholecalciferol (Vitamin D) 1,000 unit DAILY GTB ; Start 05/02/18 at 09:00; Status UNV Collagenase (Santyl) 1 applic SOILED PRN TOP SOILED; Start 05/02/18 at 08:30; Status UNV Fenofibrate (Tricor) 48 mg DAILY GTB ; Start 05/02/18 at 09:00; Status UNV Folic Acid (Folic Acid) 1 mg DAILY GTB ; Start 05/02/18 at 09:00; Status UNV Albuterol/ Ipratropium (Duoneb) 3 ml Q6 PRN NEB SHORTNESS OF BREATH; Start 05/02/18 at 08:30; Status UNV Lansoprazole (Prevacid) 30 mg BID GTB ; Start 05/02/18 at 09:00; Status UNV Levothyroxine Sodium (Synthroid) 175 mcg BEFORE BREAKFAST GTB ; Start 05/03/18 at 07:00; Status UNV Linagliptin (Tradjenta) 5 mg DAILY GTB ; Start 05/02/18 at 09:00; Status UNV Lorazepam (Ativan) 1 mg Q4H PRN GTB ANXIETY; Start 05/02/18 at 08:30; Status UNV Magnesium Hydroxide (Milk Of Mag) 30 ml DAILY PRN GTB CONSTIPATION; Start 05/02/18 at 08:30; Status UNV Midodrine (Proamatine) 5 mg TID GTB ; Start 05/02/18 at 09:00; Status UNV Diagnostic Test (Pha) (Accu-Chek) 1 ea AC MEALS AND BEDTIME XX ; Start 05/02/18 at 11:20; Status UNV Cefepime HCl 50 ml @ 100 mls/hr Q12 IVPB ; Start 05/02/18 at 09:00; Status UNV Allergies: Coded Allergies: No Known Allergy (Unverified , 05/02/18) Social History Smoking Status: Unknown if ever smoked Exam/Review of Systems Vital Signs Vitals Vital Signs Date Temp Pulse Resp B/P (MAP) Pulse Ox O2 O2 Flow FiO2 Time Delivery Rate 05/02/18 98.5 109 18 107/54 98 Mechanical 08:04 (71) Ventilator 05/02/18 30 05:45 Exam Exam General: This female status post tracheostomy and vent HEENT: NC/AT. pupils are equal. round. NECK: Status post tracheostomy. No stridor. Positive fresh blood noted around trachea CV: Irregularly irregular systolic murmur; no gallop or rubs. PULM: no wheezing. + rhonchi. GI: SOFT, NT, ND, no rebound or guarding Extremity: 2+ B/L LE edema. no clubbing. neuro: awake and opens her eyes. Psych: calm and pleasant rectal: deferred EKG was personally reviewed showed atrial fibrillation. Nonspecific ST-T wave abnormalities. Intervertebral conduction delay. Low voltage. CT of the neck shows: 1. This small blush of contrast noted in the deep soft tissues to the left of the tracheostomy site, representing the site of tracheostomy hemorrhage. I suspect this is arterial, arising from a distal branch of the left external carotid artery. 2. 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 3. Focal 50 - 69% stenosis origin right ICA. Labs Result Diagram: 05/01/183 05/01/18 2254 Results 24hrs Laboratory Tests Test 05/01/18 22:53 05/01/18 22:54 White Blood Count 20.8 #H Red Blood Count 1.66 #L Hemoglobin 5.4 #*L Hematocrit 17.2 #L Mean Corpuscular Volume 103.6 H Mean Corpuscular Hemoglobin 32.5 Mean Corpuscular Hemoglobin Concent 31.4 L Red Cell Distribution Width 17.2 H Platelet Count 370 Mean Platelet Volume 10.0 Immature Granulocytes % 1.300 H Neutrophils % Segmented Neutrophils % (Manual) 86 H Band Neutrophils % (Manual) 2 Lymphocytes % Lymphocytes % (Manual) 10 L Monocytes % Monocytes % (Manual) 1 Eosinophils % Eosinophils % (Manual) 1 Basophils % Nucleated Red Blood Cells % 0.1 H Immature Granulocytes # 0.280 H Neutrophils # Neutrophils # (Manual) 18.0 H Band Neutrophils # 0.4 Lymphocytes (Manual) 2.0 Lymphocytes # Monocytes # Monocytes # (Manual) 0.2 L Eosinophils # Basophils # Nucleated Red Blood Cells # Pathologist Review (Hematology) YES Platelet Estimate NORMAL Polychromasia 3+ Hypochromasia 2+ Anisocytosis 1+ Microcytosis 1+ Prothrombin Time 15.4 H Prothrombin Time Ratio 1.2 INR International Normalized Ratio 1.21 Activated Partial Thromboplast Time 30.0 Sodium Level 128 L Potassium Level 4.8 Chloride Level 83 L Carbon Dioxide Level 34 H Anion Gap 11 Blood Urea Nitrogen 69 H Creatinine 1.27 H Est Glomerular Filtrat Rate mL/min Glucose Level 197 Calcium Level 8.5 Total Bilirubin 0.2 Direct Bilirubin 0.00 Indirect Bilirubin 0.2 Aspartate Amino Transf (AST/SGOT) 44 Alanine Aminotransferase (ALT/SGPT) 23 Alkaline Phosphatase 105 Total Protein 6.6 Albumin 2.8 L Globulin 3.80 H Albumin/Globulin Ratio 0.73 Lipase 73 Medications Medications Current Medications Miscellaneous Information ([facility] This patient monroy... PRN PRN XX WOUND CARE; Start 05/02/18 at 08:00 Diagnostic Test (Pha) (Accu-Chek) 1 ea 02 XX ; Start 05/03/18 at 02:00 Insulin Glargine (Lantus) 12 units BID SC ; Start 05/02/18 at 09:00 Insulin Aspart (Novolog Insulin Pen) NOVOLOG *MILD* ALGORITHM WITH MEALS BEDTIME SC ; Start 05/02/18 at 11:50 Miscellaneous Information 1 ea NOTE XX ; Start 05/02/18 at 08:30 Glucose (Glutose) 15 gm Q15M PRN PO DECREASED GLUCOSE; Start 05/02/18 at 08:30 Glucose (Glutose) 22.5 gm Q15M PRN PO DECREASED GLUCOSE; Start 05/02/18 at 08:30 Dextrose (D50w Syringe) 25 ml Q15M PRN IV DECREASED GLUCOSE; Start 05/02/18 at 08:30 Dextrose (D50w Syringe) 50 ml Q15M PRN IV DECREASED GLUCOSE; Start 05/02/18 at 08:30 Glucagon (Glucagen) 1 mg Q15M PRN IM DECREASED GLUCOSE; Start 05/02/18 at 08:30 Glucose (Glutose) 15 gm Q15M PRN BUCCAL DECREASED GLUCOSE; Start 05/02/18 at 08:30 Acetaminophen (Tylenol Tab) 650 mg Q4H PRN GTB MILD PAIN(1-3)OR ELEVATED TEMP; Start 05/02/18 at 08:30; Status UNV Allopurinol (Zyloprim) 100 mg DAILY GTB ; Start 05/02/18 at 09:00; Status UNV Atorvastatin Calcium (Lipitor) 40 mg QHS GTB ; Start 05/02/18 at 21:00; Status UNV Bisacodyl (Dulcolax Supp) 10 mg Q48H PRN NE CONSTIPATION; Start 05/02/18 at 08:30; Status UNV Bumetanide (Bumex) 1 mg DAILY GTB ; Start 05/02/18 at 09:00; Status UNV Cholecalciferol (Vitamin D) 1,000 unit DAILY GTB ; Start 05/02/18 at 09:00; Status UNV Collagenase (Santyl) 1 applic SOILED PRN TOP SOILED; Start 05/02/18 at 08:30; Status UNV Fenofibrate (Tricor) 48 mg DAILY GTB ; Start 05/02/18 at 09:00; Status UNV Folic Acid (Folic Acid) 1 mg DAILY GTB ; Start 05/02/18 at 09:00; Status UNV Albuterol/ Ipratropium (Duoneb) 3 ml Q6 PRN NEB SHORTNESS OF BREATH; Start 05/02/18 at 08:30; Status UNV Lansoprazole (Prevacid) 30 mg BID GTB ; Start 05/02/18 at 09:00; Status UNV Levothyroxine Sodium (Synthroid) 175 mcg BEFORE BREAKFAST GTB ; Start 05/03/18 at 07:00; Status UNV Linagliptin (Tradjenta) 5 mg DAILY GTB ; Start 05/02/18 at 09:00; Status UNV Lorazepam (Ativan) 1 mg Q4H PRN GTB ANXIETY; Start 05/02/18 at 08:30; Status UNV Magnesium Hydroxide (Milk Of Mag) 30 ml DAILY PRN GTB CONSTIPATION; Start 05/02/18 at 08:30; Status UNV Midodrine (Proamatine) 5 mg TID GTB ; Start 05/02/18 at 09:00; Status UNV Diagnostic Test (Pha) (Accu-Chek) 1 ea AC MEALS AND BEDTIME XX ; Start 05/02/18 at 11:20; Status UNV Cefepime HCl 50 ml @ 100 mls/hr Q12 IVPB ; Start 05/02/18 at 09:00; Status UNV YVON WATTERS MD May 02, 2018 09:05
[2018-05-02] MEDS ORDERED: DIGOXIN 500 MCG INJ IV ONE (09:30)
[2018-05-02] MEDS: CHOLECALCIFEROL 1,000 UNIT TAB GTB SCH (10:08)
[2018-05-02] MEDS: LANSOPRAZOLE 30 MG CAP GTB SCH ×2 (10:08→21:35)
[2018-05-02] MEDS: ALLOPURINOL 100 MG TAB GTB SCH (10:09)
[2018-05-02] MEDS: LINAGLIPTIN 5 MG TABLET GTB SCH (10:09)
[2018-05-02] MEDS: MIDODRINE 5 MG TAB GTB SCH ×3 (10:09→21:35)
[2018-05-02] MEDS: CEFEPIME 1GM/50 ML (PMX) 50 ML IVPB SCH ×2 (10:10→21:35)
--- NOTE | 2018-05-02 10:11 | RADRPT ---
Echocardiogram Report Patient Name: TONY VAZQUEZPatient ID: [id number] : [id number] (88y 3m)Study Date: 05/02/2018 9:09:19 AM Gender: FAccession #: [id number] Tech: Rhona Landa ANTONELLA Location: 530 Ref.Physician: YVON LUTHER Height(Cm): BSA: Weight(Kg): Quality: AdequateAccount #: Procedures: Echocardiographic Report: Transthoracic echocardiogram with complete 2D, M-Mode, and doppler examination. Indications: Congestive Heart Failure. Measurements: 2D/M Mode Doppler Measurement Value Normal Range Measurement Value Normal Range LVIDd 2D 3.7 [ 3.8 - 5.2 ] cm AV Peak Bartolo 1.6 [ 100.0 - 170.0 ] cm/sec LVIDs 2D 2.7 [ 2.2 - 3.5 ] cm AV Peak PG 10.0 [ 2.0 - 9.0 ] mmHg LVPWd 2D 1.5 [ 0.6 - 0.9 ] cm LVOT Peak Bartolo 0.8 [ 70.0 - 110.0 ] cm/sec IVSd 2D 1.6 [ 0.6 - 0.9 ] cm LVOT Peak PG 2.0 [ 2.0 - 6.0 ] mmHg AoR Diam 2D 2.7 [ 2.3 - 3.1 ] cm TR Peak Bartolo 4.0 [ 100.0 - 280.0 ] cm/sec EDV 2D 57.4 [ 46.0 - 106.0 ] ml TR Peak PG 63.0 mmHg ESV 2D 27.0 [ 14.0 - 42.0 ] ml RVSP 71.0 [ 10.0 - 36.0 ] mmHg EF 2D 53.0 [ 54.0 - 74.0 ] percent RA Pressure 8.0 mmHg LA Dimen 2D 3.9 [ 2.7 - 3.8 ] cm Findings: Left Ventricle: Normal left ventricular systolic function. Normal left ventricular cavity size. Severe concentric left ventricular hypertrophy. Ejection fraction is visually estimated at 65 %. Abnormal Diastolic Function. Right Ventricle: Normal right ventricular size. Normal right ventricular systolic function. Left Atrium: There is mild enlargement of left atrium. Right Atrium: There is mild enlargement of right atrium. Mitral Valve: Normal appearance and function of the mitral valve with trace physiologic regurgitation. Mitral valve leaflets appear mildly thickened. Mild mitral annular calcification. Mild mitral valve regurgitation. Aortic Valve: No significant aortic stenosis or insufficiency. Aortic cusps appear mildly calcified. Tricuspid Valve: Normal appearance of the tricuspid valve. Estimated peak PA systolic pressure 71 mmHg. There is moderate tricuspid regurgitation. Pulmonic Valve: Normal pulmonic valve appearance. Pericardium: Normal pericardium with no significant pericardial effusion. Aorta: Normal aortic root. IVC: Inferior vena cava without respiratory collapse, however, patient on ventilator. Conclusions: There is mild enlargement of right atrium. There is mild enlargement of left atrium. Normal left ventricular systolic function. Normal left ventricular cavity size. Severe concentric left ventricular hypertrophy. Ejection fraction is visually estimated at 65 %. Abnormal Diastolic Function. Normal appearance and function of the mitral valve with trace physiologic regurgitation. Mitral valve leaflets appear mildly thickened. Mild mitral annular calcification. Mild mitral valve regurgitation. No significant aortic stenosis or insufficiency. Aortic cusps appear mildly calcified. Normal appearance of the tricuspid valve. Estimated peak PA systolic pressure 71 mmHg. There is moderate tricuspid regurgitation. Normal pericardium with no significant pericardial effusion. Electronically Signed By: Yvon Luther 2018-05-02 10:10:32 PDT
[2018-05-02] MEDS: INSULIN GLARGINE [LANTus] (100 UNITS/ML) SYG SC SCH ×2 (10:36→21:45)
[2018-05-02] MEDS: FENOFIBRATE 48 MG TAB GTB SCH (11:12)
[2018-05-02] MEDS: ACCU-CHEK XX SCH ×3 (11:12→21:00)
[2018-05-02] MEDS: INSULIN ASPART [NOVOLOG] 3 ML PEN SC SCH ×3 (12:49→21:45)
[2018-05-02] MEDS ORDERED: COLLAGENASE 5 GM (UD JAR) TOP PRN (13:00)
--- NOTE | 2018-05-02 13:37 | CONS ---
DATE OF ADMISSION: 05/02/2018 DATE OF CONSULTATION: TYPE OF CONSULTATION: Pulmonary. REASON FOR CONSULTATION: Ventilator management and tracheal bleeding. Thank you, Dr. Kee, for this consultation. HISTORY OF PRESENT ILLNESS: This is an unfortunate 88-year-old lady with a history of tracheostomy, vent-dependent respiratory failure, coronary artery bypass graft surgery, COPD, came in for acute art erial bleeding from tracheostomy site. CT neck was performed, which demonstrated evidence of possibl e arterial bleed from distal branch of left external carotid artery into the trachea itself. ENT leoncio luated the patient yesterday. The patient is currently being transfused for low hemoglobin and pendi ng further ENT recommendations and possible embolization by interventional radiology. PAST MEDICAL HISTORY: As above. MEDICATIONS: Per chart. ALLERGIES: NONE. SOCIAL HISTORY: Nonsmoker, no alcohol or history of drug use. FAMILY HISTORY: Noncontributory. SYSTEMS REVIEW: A 12-point review of systems was negative other than mentioned above. PHYSICAL EXAMINATION: GENERAL: Elderly-appearing lady, appears comfortable at rest, in no acute distress. VITAL SIGNS: Currently afebrile, pulse is 98, blood pressure 119/60, O2 saturation 96%, FiO2 of 30%. HEENT: Trach site has moderate blood around it. NECK: Otherwise supple. CARDIAC: S1, S2. No added sounds or murmurs. CHEST: Diminished air entry bilaterally. ABDOMEN: Soft, nontender. No guarding or rebound. EXTREMITIES: No cyanosis, clubbing. A 1+ edema. NEUROLOGIC: Generalized weakness. LABORATORY DATA: White count 20.8, hemoglobin 5.4. BUN 69, creatinine 1.27. INR 1.21. DIAGNOSTIC DATA: CT as above. IMPRESSION AND PLAN: 1. Arterial bleeding into the trachea with significantly low hemoglobin. 2. Vent dependent respiratory failure. 3. Prior history of chronic obstructive pulmonary disease. The patient will require: 1. Transfusion of packed red blood cells and keep hemoglobin greater than 8. 2. Interventional radiology evaluation of possible embolization procedure. 3. Consider vascular surgery evaluation also. 4. Broad-spectrum antibiotics for possible aspiration. 5. DVT and GI prophylaxis. 6. Code status noted. Dictated By: PATRICE RENDON MD SV/PROMISE Conf#: [id number] DID#: [id number] CC: SAMY PHILLIPS DO; ALISON OLGUIN MD;*[facility]*
[2018-05-02] MEDS ORDERED: BUMETANIDE 1 MG INJ IV ONE (15:00)
--- NOTE | 2018-05-02 18:48 | CONS ---
DATE OF ADMISSION: 05/02/2018 DATE OF CONSULTATION: 05/02/2018 REQUESTING PHYSICIAN: Dr. Roly Mackay Thank you, Dr. Mackay, for this consultation. HISTORY OF PRESENT ILLNESS: This is a fragile, chronically ill-appearing, elderly woman with a histo ry of chronic respiratory failure and dysphagia, COPD, neuropathy, chronic encephalopathy, hypertensi on, peripheral arterial disease, dyslipidemia and atrial fibrillation, who was admitted with bleeding around the trach site, with a WBC of 20.8, H and H 5.4 and 17.2, platelets 370. BUN on admission wa s 69, creatinine 1.27. The patient had a CT of the neck that revealed small blush of contrast in the deep soft tissue to the left of the tracheostomy site representing the site of tracheostomy hemorrha ge, focal greater than 70% stenosis involving the proximal left ICA and 50 to 69 stenosis of regional right ICA. The patient was given blood transfusion. She was also seen by Otolaryngology and Head a nd Neck Surgery, Dr. Minor who did an endoscopic examination that revealed no blood in the trache a and no active bleeding. The patient also is being seen by Dr. Luther in cardiology consultation. A 2D echo on admission revealed ejection fraction of 65%, normal appearance of tricuspid and mitral v rankin. She is being seen by Dr. De Leon in pulmonology consultation. The patient is currently on IV cefepime. Chest x-ray revealed interval increase in diffuse bilateral air space opacities represent ing increasing edema versus pneumonia with stable small right pleural effusion. PAST MEDICAL HISTORY: As per History of Present Illness. PAST SURGICAL HISTORY: History of CABG, knee replacement. SOCIAL HISTORY: The patient came from the facility. REVIEW OF SYSTEMS: As per History of Present Illness. The patient is nonverbal. PHYSICAL EXAMINATION: GENERAL: This is a well-developed, chronically ill-appearing, obese, elderly woman who is awake and lying comfortably in bed. HEENT: Head atraumatic, normocephalic. Sclerae anicteric. Buccal mucosa dry. NECK: Supple. Tracheostomy present. CHEST: Rise symmetrical. Breath sounds clear, diminished to bases. HEART: S1, S2. ABDOMEN: Obese, soft. Bowel sounds present. EXTREMITIES: With trace edema. SKIN: The patient has a sacral decub and multiple ecchymotic areas on her upper extremities. DIAGNOSTIC IMPRESSION AND PLAN: An 88-year-old woman who has numerous medical problems admitted with acute anemia with bleeding from the tracheostomy site. The patient with ongoing leukocytosis that i s slowly improving. She was started on cefepime for pneumonia. She is clinically stable. H and H t mao went up to 7.4 and 22.9. White blood cell count decreased to 13.3 and neutrophils 77.7. Again, she is being seen by multiple consultants. She underwent endoscopic examination of her airways and no source of bleeding was found. We will continue observing her on current antibiotics, follow chest x-ray, repeat cultures if she spikes fever, monitor H and H and transfuse as needed. The patient allyson aguiar need interventional radiology evaluation for possible embolization procedure. I discussed with Dr. Cueto who is covering Dr. Bach. Dictated By: JESSICA TORRES MUSIC RESEARCHER for CELINA BACH MD NI/NTS Conf#: [id number] DID#: [id number] CC: ROLY MACKAY DO; SAMY PHILLIPS DO;*[facility]*
[2018-05-02] MEDS: ATORVASTATIN 40 MG TAB GTB SCH (21:35)
[2018-05-02] MEDS: COLLAGENASE 5 GM (UD JAR) TOP SCH (21:36)
[2018-05-03] VITALS (25 sets, daily range): BP systolic 103–123; BP diastolic 50–66; PULSE 84–95; RESP 17–27
[2018-05-03] MEDS ORDERED: ACCU-CHEK XX SCH (02:00)
[2018-05-03] MEDS ORDERED: INSULIN ASPART [NOVOLOG] 3 ML PEN SC SCH (06:00)
[2018-05-03] MEDS: LEVOTHYROXINE 175 MCG TAB GTB SCH (06:47)
[2018-05-03] MEDS: Insulin NOVOLOG SS MILD Algorithm (NPO/TPN/ENTERAL FEEDS) SC SCH ×4 (06:49→23:43)
[2018-05-03] MEDS ORDERED: ALTEPLASE (CATHFLO) 2 MG INJ CATHETER PRN (07:30)
[2018-05-03] MEDS: ACCU-CHEK XX SCH ×4 (08:56→20:48)
[2018-05-03] MEDS: FOLIC ACID 1 MG TAB GTB SCH (09:18)
[2018-05-03] MEDS: CHOLECALCIFEROL 1,000 UNIT TAB GTB SCH (09:18)
[2018-05-03] MEDS: LANSOPRAZOLE 30 MG CAP GTB SCH ×2 (09:18→20:33)
[2018-05-03] MEDS: MIDODRINE 5 MG TAB GTB SCH ×3 (09:18→20:34)
[2018-05-03] MEDS: ALLOPURINOL 100 MG TAB GTB SCH (09:19)
[2018-05-03] MEDS: COLLAGENASE 5 GM (UD JAR) TOP SCH ×2 (09:19→20:34)
[2018-05-03] MEDS: LINAGLIPTIN 5 MG TABLET GTB SCH (09:19)
[2018-05-03] MEDS: FENOFIBRATE 48 MG TAB GTB SCH (09:19)
[2018-05-03] MEDS: CEFEPIME 1GM/50 ML (PMX) 50 ML IVPB SCH (09:20)
[2018-05-03] MEDS: BUMETANIDE 1 MG INJ IV SCH ×2 (09:35→17:38)
--- NOTE | 2018-05-03 09:57 | PN ---
DATE: 05/03/2018 SUBJECTIVE: Yesterday a referral was made for patient to be transferred to tertiary center for possi ble embolization of external iliac artery branch. The patient was seen by ENT with no source of blee ding. Interventional radiology and vascular surgery recommended embolization. Interventional radiol josh unfortunately is not able to do embolization of the head and neck and recommended transfer to a [facility] center. The patient overnight had minimal tracheal bleed. No other events noted. OBJECTIVE: VITAL SIGNS: Blood pressure is 103/51, respiratory rate 20, pulse 85, temperature 97.5. HEENT: Head is normocephalic. NECK: Supple. HEART: Regular rate. LUNGS: Show diminished breath sounds at base. ABDOMEN: Soft, nontender to palpation without rebound or guarding. EXTREMITIES: Negative for clubbing, cyanosis. Positive edema. Diffuse anasarca. DERMATOLOGIC: No rashes. MUSCULOSKELETAL: No joint effusion. NEUROLOGIC: No change in exam. MEDICATIONS: Reviewed. LABORATORY DATA: Shows sodium 128, potassium 4.6, chloride 84, BUN 78, creatinine 1.55. White count 15.2, hemoglobin 10.2, platelet count is 296. ASSESSMENT AND PLAN: 1. Acute tracheal bleed. Etiology is felt to be secondary to left external carotid artery distal br anch. As stated above, patient has been advised by ENT, pulmonary and interventional radiology. Belen ble to do embolization of the head and neck at this facility. Accepted transfer has been placed for tertiary center. Patient's tracheal bleeding; however, has improved. The patient is status post 4 u nits of PRBC. Will continue to monitor hemoglobin and hematocrit levels. Continue to hold antiplate let therapy, monitor closely. 2. Ventilator dependent respiratory failure. Vent settings and ABG was reviewed. Continue to monit or. 3. Systemic inflammatory response syndrome, possible sepsis. The patient has elevated white count. Unclear if this is infectious or reactive. The patient is on IV antibiotics. We will follow up cul august. Follow up with infectious disease. 4. Dysphagia, status post PEG, continue tube feeding. 5. Anemia secondary to atrial bleed, status post blood transfusion. Continue to monitor. 6. Possible vaginal bleed. Patient had a pelvic ultrasound which showed no free fluids. No visuali zation of the ovaries. Will continue to monitor. If bleeding continues, consider PAYMENT PROCESSOR evaluation. 7. Hyponatremia secondary to acute kidney injury, chronic kidney disease. The patient's free water flushes have been limited. Will continue to monitor serial sodium levels. 8. Acute kidney injury on top of chronic kidney disease. Etiology is secondary to hemodynamics, que stionable cardiorenal syndrome. Questionable tubular injury. The patient's urinalysis was reviewed, shows positive epithelial cells, pyuria and a FENa less than 1%. These findings can be seen in card iorenal syndrome. Plan at this point is to continue current diuretic therapy. Follow up with cardio logy. Monitor closely. 9. Volume overload secondary to acute heart failure. Continue current diuretic regimen. Monitor I' s and O's closely. 10. Diabetes. Glucose levels remain elevated. We will adjust insulin regimen. 11. Dyslipidemia. Continue statin therapy. 12. History of coronary artery disease, status post coronary artery bypass graft. Continue medical management. 13. Peripheral arterial disease. 14. Gastroesophageal reflux disease. 15. Hypothyroidism. Continue Synthroid. 16. Lower extremity wounds. Continue wound care. Dictated By: ROLY MACKAY DO NR/NTS Conf#: [id number] DID#: [id number] CC: SAMY PHILLIPS DO;*EndCC*
[2018-05-03] MEDS: INSULIN GLARGINE [LANTus] (100 UNITS/ML) SYG SC SCH ×2 (11:59→20:42)
--- NOTE | 2018-05-03 15:09 | CONS ---
Consult Date/Type/Reason Admit Date/Time May 02, 2018 at 01:32 Initial Consult Date 05/02/18 Type of Consult Pulmonary Requesting Provider: JAMES GIRARD Date/Time of Note DATE: 05/03/18 TIME: 15:07 Subjective Patient stable this morning no new events no further bleeding. Objective Vital Signs Date Temp Pulse Resp B/P (MAP) Pulse Ox O2 O2 Flow FiO2 Time Delivery Rate 05/03/18 81 20 98 30 13:47 05/03/18 97.9 113/50 11:39 (71) 05/02/18 Mechanical 16:11 Ventilator Intake and Output 05/02/18 05/02/18 05/03/18 1515:00 23:00 07:00 IntakeIntake Total 50 ml 900 ml OutputOutput Total 400 ml BalanceBalance 50 ml 500 ml Exam PHYSICAL EXAMINATION: GENERAL: Elderly-appearing lady, appears comfortable at rest, in no acute distress. VITAL SIGNS: HEENT: Trach site clean and intact no further bleeding noted. NECK: Otherwise supple. CARDIAC: S1, S2. No added sounds or murmurs. CHEST: Diminished air entry bilaterally. ABDOMEN: Soft, nontender. No guarding or rebound. EXTREMITIES: No cyanosis, clubbing. A 1+ edema. NEUROLOGIC: Generalized weakness. Vent Setting Ventilator Support Mode: AC Fraction of Inspired Oxygen pe: 30 Positive End Expiratory Pressu: 5.0 Results/Medications Result Diagram: 05/03/18 0644 05/03/18 0644 Results 24 hrs Laboratory Tests Test 05/02/18 15:51 05/02/18 17:10 05/02/18 17:36 05/02/18 21:37 White Blood 13.3 H Count Red Blood Count 2.41 L Hemoglobin 7.4 L Hematocrit 22.9 L Mean Corpuscular 95.0 Volume Mean Corpuscular 30.7 Hemoglobin Mean Corpuscular 32.3 Hemoglobin Ada nt Red Cell 18.1 H Distribution Width Platelet Count 293 Mean Platelet 10.1 Volume Immature 0.800 H Granulocytes % Neutrophils % 77.7 H Lymphocytes % 16.8 Monocytes % 4.6 Eosinophils % 0.0 Basophils % 0.1 Nucleated Red 0.2 H Blood Cells % Immature 0.110 H Granulocytes # Neutrophils # 10.4 H Lymphocytes # 2.2 Monocytes # 0.6 Eosinophils # 0.0 Basophils # 0.0 Nucleated Red 0.0 Blood Cells # Bedside Glucose 290 H 249 H Urine Color YELLOW Urine Clarity SLIGHTLY CLOUDY A Urine pH 6.0 Urine Specific 1.018 [place] Urine Ketones NEGATIVE Urine Nitrite NEGATIVE Urine Bilirubin NEGATIVE Urine NEGATIVE Urobilinogen Urine Leukocyte 1+ H Esterase Urine 2 Microscopic RBC Urine 17 H Microscopic WBC Urine Squamous MANY A Epithelial Cells Urine Bacteria FEW A Urine Hemoglobin NEGATIVE Urine Random 39.32 Creatinine Urine Random < 13 L Sodium Urine Glucose NEGATIVE Urine Total 15.0 H Protein Test 05/03/18 05:38 05/03/18 06:44 05/03/18 06:46 05/03/18 08:55 Lab Scanned BLOOD TRANSFUSI Report ON White Blood 15.2 H Count Red Blood Count 3.31 #L Hemoglobin 10.2 #L Hematocrit 30.3 #L Mean Corpuscular 91.5 Volume Mean Corpuscular 30.8 Hemoglobin Mean Corpuscular 33.7 Hemoglobin Ada nt Red Cell 18.3 H Distribution Width Platelet Count 296 Mean Platelet 9.8 Volume Immature 1.000 H Granulocytes % Neutrophils % 77.8 H Lymphocytes % 17.0 Monocytes % 3.8 Eosinophils % 0.2 Basophils % 0.2 Nucleated Red 0.3 H Blood Cells % Immature 0.150 H Granulocytes # Neutrophils # 11.9 H Lymphocytes # 2.6 Monocytes # 0.6 Eosinophils # 0.0 Basophils # 0.0 Nucleated Red 0.0 Blood Cells # Sodium Level 128 L Potassium Level 4.6 Chloride Level 84 L Carbon Dioxide 37 H Level Anion Gap 7 Blood Urea 78 H Nitrogen Creatinine 1.55 H Est Glomerular Filtrat Rate mL/min Glucose Level 172 Calcium Level 8.2 L Phosphorus Level 3.6 Magnesium Level 2.7 H Bedside Glucose 189 209 Test 05/03/18 11:55 Bedside Glucose 252 H Medications Current Medications Miscellaneous Information (Pending Santyl Order For Wound Care) This patient monroy... PRN PRN XX WOUND CARE; Start 05/02/18 at 08:00 Miscellaneous Information 1 ea NOTE XX ; Start 05/02/18 at 08:30 Glucose (Glutose) 15 gm Q15M PRN PO DECREASED GLUCOSE; Start 05/02/18 at 08:30 Glucose (Glutose) 22.5 gm Q15M PRN PO DECREASED GLUCOSE; Start 05/02/18 at 08:3 0 Dextrose (D50w Syringe) 25 ml Q15M PRN IV DECREASED GLUCOSE; Start 05/02/18 at 08:30 Dextrose (D50w Syringe) 50 ml Q15M PRN IV DECREASED GLUCOSE; Start 05/02/18 at 08:30 Glucagon (Glucagen) 1 mg Q15M PRN IM DECREASED GLUCOSE; Start 05/02/18 at 08:30 Glucose (Glutose) 15 gm Q15M PRN BUCCAL DECREASED GLUCOSE; Start 05/02/18 at 08:30 Acetaminophen (Tylenol Tab) 650 mg Q4H PRN GTB MILD PAIN(1-3)OR ELEVATED TEMP; Start 05/02/18 at 08:30 Allopurinol (Zyloprim) 100 mg DAILY GTB Last administered on 05/03/18 09:19; Admin Dose 100 MG; Start 05/02/18 at 09:00 Atorvastatin Calcium (Lipitor) 40 mg QHS GTB Last administered on 05/02/18at 21:35; Admin Dose 40 MG; Start 05/02/18 at 21:00 Bisacodyl (Dulcolax Supp) 10 mg Q48H PRN [place] CONSTIPATION; Start 05/02/18 at 08:30 Cholecalciferol (Vitamin D) 1,000 unit DAILY GTB Last administered on 05/03/18 09:18; Admin Dose 1,000 UNIT; Start 05/02/18 at 09:00 Fenofibrate (Tricor) 48 mg DAILY GTB Last administered on 05/03/18 09:19; Admin Dose 48 MG; Start 05/02/18 at 09:00 Folic Acid (Folic Acid) 1 mg DAILY GTB Last administered on 05/03/18 09:18; Admin Dose 1 MG; Start 05/02/18 at 09:00 Albuterol/ Ipratropium (Duoneb) 3 ml Q6 PRN NEB SHORTNESS OF BREATH; Start 05/02/18 at 08:30 Lansoprazole (Prevacid) 30 mg BID GTB Last administered on 05/03/18at 09:18; Admin Dose 30 MG; Start 05/02/18 at 09:00 Levothyroxine Sodium (Synthroid) 175 mcg BEFORE BREAKFAST GTB Last administered on 05/03/18at 06:47; Admin Dose 175 MCG; Start 05/03/18 at 07:00 Linagliptin (Tradjenta) 5 mg DAILY GTB Last administered on 05/03/18 09:19; Admin Dose 5 MG; Start 05/02/18 at 09:00 Lorazepam (Ativan) 1 mg Q4H PRN GTB ANXIETY; Start 05/02/18 at 08:30 Magnesium Hydroxide (Milk Of Mag) 30 ml DAILY PRN GTB CONSTIPATION; Start 05/02/18 at 08:30 Midodrine (Proamatine) 5 mg TID GTB Last administered on 05/03/18 13:08; Admin Dose 5 MG; Start 05/02/18 at 09:00 Diagnostic Test (Pha) (Accu-Chek) 1 ea AC MEALS AND BEDTIME XX Last administered on 05/03/18 12:01; Admin Dose 1 EA; Start 05/02/18 at 11:20 Cefepime HCl 50 ml @ 100 mls/hr Q12 IVPB Last administered on 05/03/18 09:20; Admin Dose 100 MLS/HR; Start 05/02/18 at 09:00 Collagenase (Santyl) 1 applic PRN PRN TOP NEEDED FOR " SOILED AREA(S); Start 05/02/18 at 13:00 Collagenase (Santyl) 1 applic BID TOP Last administered on 05/03/18 09:19; Admin Dose 1 APPLIC; Start 05/02/18 at 21:00 Insulin Aspart (Novolog Insulin Pen) (Adult SC Insulin - Mild Algorithm)... Q6 SC Last administered on 05/03/18 12:00; Admin Dose 3 UNIT; Start 05/03/18 at 06:00 Alteplase, Recombinant (Cathflo (Activase)) 2 mg MAY REPEAT X1 PRN CATHETER IF CATHETER REMAINS OCCULUDED; Start 05/03/18 at 07:30 Insulin Glargine (Lantus) 16 units BID SC Last administered on 05/03/18 11:59; Admin Dose 16 UNITS; Start 05/03/18 at 10:00 Bumetanide (Bumex) 1 mg BID DIURETICS IV Last administered on 05/03/18 09:35; Admin Dose 1 MG; Start 05/03/18 at 09:00 Assessment/Plan Hospital Course (Demo Recall) IMPRESSION AND PLAN: 1. Arterial bleeding into the trachea with significantly low hemoglobin. Bleeding seems to have settled 2. Vent dependent respiratory failure. 3. Prior history of chronic obstructive pulmonary disease. The patient will require: 1. Transfusion of packed red blood cells and keep hemoglobin greater than 8. 2. Interventional radiology evaluation of possible embolization procedure. 3. Consider vascular surgery evaluation also. 4. Broad-spectrum antibiotics for possible aspiration. 5. DVT and GI prophylaxis. 6. Code status noted. PATRICE ERNDON MD, [facility] May 03, 2018 15:09
--- NOTE | 2018-05-03 15:22 | CONS ---
Assessment/Plan Assessment/Plan Hospital Course (Demo Recall) No events overnight patient is lying comfortably in bed no fevers WBC 15.2 platelets 2 03/29/1995 neutrophils 77.8 BUN 78 creatinine 1.55 Microbiology: Blood cultures negative urine culture growing enterococcus species Antimicrobials: Cefepime PHYSICAL EXAMINATION: GENERAL: This is a well-developed, chronically ill-appearing, obese, elderly woman who is awake and lying comfortably in bed. HEENT: Head atraumatic, normocephalic. Sclerae anicteric. Buccal mucosa dry. NECK: Supple. Tracheostomy present. CHEST: Rise symmetrical. Breath sounds clear, diminished to bases. HEART: S1, S2. ABDOMEN: Obese, soft. Bowel sounds present. EXTREMITIES: With trace edema. SKIN: The patient has a sacral decub and multiple ecchymotic areas on her upper extremities. Assessment: 1. Sepsis 2. Urinary tract infection 3. Acute tracheal bleed with acute anemia on admission status post 4 units of PRBC 4. Possible aspiration pneumonia 5. Diabetes 6. Dysphagia Plan: Clinically stable, change cefepime to Zosyn, await for final cultures pending transfer to tertiary care facility for possible embolization Consultation Date/Type/Reason Admit Date/Time May 02, 2018 at 01:32 Initial Consult Date 05/02/18 Type of Consult id Requesting Provider: JAMES GIRARD Date/Time of Note DATE: 05/03/18 TIME: 15:22 Exam/Review of Systems Exam Vitals Vital Signs Date Temp Pulse Resp B/P (MAP) Pulse Ox O2 O2 Flow FiO2 Time Delivery Rate 05/03/18 77 18 98 30 15:11 05/03/18 97.9 113/50 11:39 (71) 05/02/18 Mechanical 16:11 Ventilator Intake and Output 05/02/18 05/02/18 05/03/18 1515:00 23:00 07:00 IntakeIntake Total 50 ml 900 ml OutputOutput Total 400 ml BalanceBalance 50 ml 500 ml Results Result Diagram: 05/03/18 0644 05/03/18 0644 Results 24hrs Laboratory Tests Test 05/02/18 15:51 05/02/18 17:10 05/02/18 17:36 05/02/18 21:37 White Blood 13.3 H Count Red Blood Count 2.41 L Hemoglobin 7.4 L Hematocrit 22.9 L Mean Corpuscular 95.0 Volume Mean Corpuscular 30.7 Hemoglobin Mean Corpuscular 32.3 Hemoglobin Ada nt Red Cell 18.1 H Distribution Width Platelet Count 293 Mean Platelet 10.1 Volume Immature 0.800 H Granulocytes % Neutrophils % 77.7 H Lymphocytes % 16.8 Monocytes % 4.6 Eosinophils % 0.0 Basophils % 0.1 Nucleated Red 0.2 H Blood Cells % Immature 0.110 H Granulocytes # Neutrophils # 10.4 H Lymphocytes # 2.2 Monocytes # 0.6 Eosinophils # 0.0 Basophils # 0.0 Nucleated Red 0.0 Blood Cells # Bedside Glucose 290 H 249 H Urine Color YELLOW Urine Clarity SLIGHTLY CLOUDY A Urine pH 6.0 Urine Specific 1.018 [place] Urine Ketones NEGATIVE Urine Nitrite NEGATIVE Urine Bilirubin NEGATIVE Urine NEGATIVE Urobilinogen Urine Leukocyte 1+ H Esterase Urine 2 Microscopic RBC Urine 17 H Microscopic WBC Urine Squamous MANY A Epithelial Cells Urine Bacteria FEW A Urine Hemoglobin NEGATIVE Urine Random 39.32 Creatinine Urine Random < 13 L Sodium Urine Glucose NEGATIVE Urine Total 15.0 H Protein Test 05/03/18 05:38 05/03/18 06:44 05/03/18 06:46 05/03/18 08:55 Lab Scanned BLOOD TRANSFUSI Report ON White Blood 15.2 H Count Red Blood Count 3.31 #L Hemoglobin 10.2 #L Hematocrit 30.3 #L Mean Corpuscular 91.5 Volume Mean Corpuscular 30.8 Hemoglobin Mean Corpuscular 33.7 Hemoglobin Ada nt Red Cell 18.3 H Distribution Width Platelet Count 296 Mean Platelet 9.8 Volume Immature 1.000 H Granulocytes % Neutrophils % 77.8 H Lymphocytes % 17.0 Monocytes % 3.8 Eosinophils % 0.2 Basophils % 0.2 Nucleated Red 0.3 H Blood Cells % Immature 0.150 H Granulocytes # Neutrophils # 11.9 H Lymphocytes # 2.6 Monocytes # 0.6 Eosinophils # 0.0 Basophils # 0.0 Nucleated Red 0.0 Blood Cells # Sodium Level 128 L Potassium Level 4.6 Chloride Level 84 L Carbon Dioxide 37 H Level Anion Gap 7 Blood Urea 78 H Nitrogen Creatinine 1.55 H Est Glomerular Filtrat Rate mL/min Glucose Level 172 Calcium Level 8.2 L Phosphorus Level 3.6 Magnesium Level 2.7 H Bedside Glucose 189 209 Test 05/03/18 11:55 Bedside Glucose 252 H Medications Medication Current Medications Miscellaneous Information ([facility] This patient monroy... PRN PRN XX WOUND CARE; Start 05/02/18 at 08:00 Miscellaneous Information 1 ea NOTE XX ; Start 05/02/18 at 08:30 Glucose (Glutose) 15 gm Q15M PRN PO DECREASED GLUCOSE; Start 05/02/18 at 08:30 Glucose (Glutose) 22.5 gm Q15M PRN PO DECREASED GLUCOSE; Start 05/02/18 at 08:30 Dextrose (D50w Syringe) 25 ml Q15M PRN IV DECREASED GLUCOSE; Start 05/02/18 at 08:30 Dextrose (D50w Syringe) 50 ml Q15M PRN IV DECREASED GLUCOSE; Start 05/02/18 at 08:30 Glucagon (Glucagen) 1 mg Q15M PRN IM DECREASED GLUCOSE; Start 05/02/18 at 08:30 Glucose (Glutose) 15 gm Q15M PRN BUCCAL DECREASED GLUCOSE; Start 05/02/18 at 08:30 Acetaminophen (Tylenol Tab) 650 mg Q4H PRN GTB MILD PAIN(1-3)OR ELEVATED TEMP; Start 05/02/18 at 08:30 Allopurinol (Zyloprim) 100 mg DAILY GTB Last administered on 05/03/18at 09:19; Admin Dose 100 MG; Start 05/02/18 at 09:00 Atorvastatin Calcium (Lipitor) 40 mg QHS GTB Last administered on 05/02/18at 21:35; Admin Dose 40 MG; Start 05/02/18 at 21:00 Bisacodyl (Dulcolax Supp) 10 mg Q48H PRN [place] CONSTIPATION; Start 05/02/18 at 08:30 Cholecalciferol (Vitamin D) 1,000 unit DAILY GTB Last administered on 05/03/18at 09:18; Admin Dose 1,000 UNIT; Start 05/02/18 at 09:00 Fenofibrate (Tricor) 48 mg DAILY GTB Last administered on 05/03/18at 09:19; Admin Dose 48 MG; Start 05/02/18 at 09:00 Folic Acid (Folic Acid) 1 mg DAILY GTB Last administered on 05/03/18at 09:18; Admin Dose 1 MG; Start 05/02/18 at 09:00 Albuterol/ Ipratropium (Duoneb) 3 ml Q6 PRN NEB SHORTNESS OF BREATH; Start 05/02/18 at 08:30 Lansoprazole (Prevacid) 30 mg BID GTB Last administered on 05/03/18 09:18; Admin Dose 30 MG; Start 05/02/18 at 09:00 Levothyroxine Sodium (Synthroid) 175 mcg BEFORE BREAKFAST GTB Last administered on 05/03/18at 06:47; Admin Dose 175 MCG; Start 05/03/18 at 07:00 Linagliptin (Tradjenta) 5 mg DAILY GTB Last administered on 05/03/18 09:19; Admin Dose 5 MG; Start 05/02/18 at 09:00 Lorazepam (Ativan) 1 mg Q4H PRN GTB ANXIETY; Start 05/02/18 at 08:30 Magnesium Hydroxide (Milk Of Mag) 30 ml DAILY PRN GTB CONSTIPATION; Start at 08:30 Midodrine (Proamatine) 5 mg TID GTB Last administered on 05/03/18at 13:08; Admin Dose 5 MG; Start 05/02/18 at 09:00 Diagnostic Test (Pha) (Accu-Chek) 1 ea AC MEALS AND BEDTIME XX Last administered on 05/03/18 12:01; Admin Dose 1 EA; Start 05/02/18 at 11:20 Cefepime HCl 50 ml @ 100 mls/hr Q12 IVPB Last administered on 05/03/18 09:20; Admin Dose 100 MLS/HR; Start 05/02/18 at 09:00 Collagenase (Santyl) 1 applic PRN PRN TOP NEEDED FOR " SOILED AREA(S); Start 05/02/18 at 13:00 Collagenase (Santyl) 1 applic BID TOP Last administered on 05/03/18 09:19; Admin Dose 1 APPLIC; Start 05/02/18 at 21:00 Insulin Aspart (Novolog Insulin Pen) (Adult SC Insulin - Mild Algorithm)... Q6 SC Last administered on 05/03/18at 12:00; Admin Dose 3 UNIT; Start 05/03/18 at 06:00 Alteplase, Recombinant (Cathflo (Activase)) 2 mg MAY REPEAT X1 PRN CATHETER IF CATHETER REMAINS OCCULUDED; Start 05/03/18 at 07:30 Insulin Glargine (Lantus) 16 units BID SC Last administered on 05/03/18at 11:59; Admin Dose 16 UNITS; Start 05/03/18 at 10:00 Bumetanide (Bumex) 1 mg BID DIURETICS IV Last administered on 05/03/18at 09:35; Admin Dose 1 MG; Start 05/03/18 at 09:00 JESSICA TORRES NP May 03, 2018 15:22
--- NOTE | 2018-05-03 18:54 | CONS ---
Consult Date/Type/Reason Admit Date/Time May 02, 2018 at 01:32 Initial Consult Date 05/02/18 Type of Consultation: cv Requesting Provider: JAMES GIRARD Date/Time of Note DATE: 05/03/18 TIME: 18:52 Subjective Interventional cardiology follow-up progress note Subjective: Case discussed with the staff and telemetry was reviewed. Patient has remained in atrial flutter/fibrillation. Heart rate is relatively under good control. Has been less than 100 mostly Patient remains status post trach on the vent but the tracheal bleeding has significantly improved now Patient is nonverbal Objective: General: This female status post tracheostomy and vent HEENT: NC/AT. pupils are equal. round. NECK: Status post tracheostomy. No stridor. No active bleeding is noted CV: Irregularly irregular systolic murmur; no gallop or rubs. PULM: no wheezing. + rhonchi. GI: SOFT, NT, ND, no rebound or guarding Extremity: 2+ B/L LE edema. no clubbing. neuro: awake and opens her eyes. Psych: calm and pleasant rectal: deferred EKG was personally reviewed showed atrial fibrillation. Nonspecific ST-T wave abnormalities. Intervertebral conduction delay. Low voltage. CT of the neck shows: 1. This small blush of contrast noted in the deep soft tissues to the left of the tracheostomy site, representing the site of tracheostomy hemorrhage. I suspect this is arterial, arising from a distal branch of the left external carotid artery. 2. 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 3. Focal 50 - 69% stenosis origin right ICA. Objective Vitals Vital Signs Date Temp Pulse Resp B/P (MAP) Pulse Ox O2 O2 Flow FiO2 Time Delivery Rate 05/03/18 99 21 100 30 17:16 05/03/18 97.7 120/60 16:07 (80) 05/02/18 Mechanical 16:11 Ventilator Intake and Output 05/02/18 05/02/18 05/03/18 1515:00 23:00 07:00 IntakeIntake Total 50 ml 900 ml OutputOutput Total 400 ml BalanceBalance 50 ml 500 ml Results/Medications Result Diagram: 05/03/18 0644 05/03/18 0644 Results 24 hrs Laboratory Tests Test 05/02/18 21:37 05/03/18 05:38 05/03/18 06:44 05/03/18 06:46 Bedside Glucose 249 H 189 Lab Scanned BLOOD TRANSFUSIO Report N White Blood Count 15.2 H Red Blood Count 3.31 #L Hemoglobin 10.2 #L Hematocrit 30.3 #L Mean Corpuscular 91.5 Volume Mean Corpuscular 30.8 Hemoglobin Mean Corpuscular 33.7 Hemoglobin Concen t Red Cell 18.3 H Distribution Width Platelet Count 296 Mean Platelet 9.8 Volume Immature 1.000 H Granulocytes % Neutrophils % 77.8 H Lymphocytes % 17.0 Monocytes % 3.8 Eosinophils % 0.2 Basophils % 0.2 Nucleated Red 0.3 H Blood Cells % Immature 0.150 H Granulocytes # Neutrophils # 11.9 H Lymphocytes # 2.6 Monocytes # 0.6 Eosinophils # 0.0 Basophils # 0.0 Nucleated Red 0.0 Blood Cells # Sodium Level 128 L Potassium Level 4.6 Chloride Level 84 L Carbon Dioxide 37 H Level Anion Gap 7 Blood Urea 78 H Nitrogen Creatinine 1.55 H Est Glomerular Filtrat Rate mL/min Glucose Level 172 Calcium Level 8.2 L Phosphorus Level 3.6 Magnesium Level 2.7 H Test 05/03/18 08:55 05/03/18 11:55 05/03/18 16:58 Bedside Glucose 209 252 H 211 Home Meds Reported Medications Ipratropium-Albuterol (Ipratropium-Albuterol) 0.5-3 Mg/3 Ml Ampul.neb, 3 ML INHALATION Q6 PRN for SHORTNESS OF BREATH, #30 VIAL 05/02/18 Lorazepam* (Lorazepam*) 1 Mg Tablet, 1 MG G-TUBE Q4H PRN for ANXIETY, #30 TAB 05/02/18 Insulin Aspart* (Novolog Insulin Pen*) 100 Unit/Ml Soln, 0 SC .SLIDING SCALE AC, EA INJECT PER SLIDING SCALE;IF 0-149= 0 UNIT; 10-199= 3UNITS; 200-249= 4 UNITS; 250-299= 7UNITS; 300-349= 10UNITS; 350-399=12UNITS; MORE THAN 400 GIVE 12 UNITS, AND NOTIFY , SUBCUTANEOUSLY EVERY 6HOURS FOR DM 05/02/18 Acetaminophen* (Acetaminophen*) 325 Mg Tablet, 650 MG GTB Q4H PRN for PAIN AND OR ELEVATED TEMP, #30 TAB 05/02/18 Fenofibrate Nanocrystallized* (Fenofibrate*) 48 Mg Tablet, 48 MG GTB DAILY for HYPERLIPIDIMIA, TAB 05/02/18 Collagenase* (Santyl*) 30 Gm Oint..gm., 1 APPLIC TOP .SOILED PRN for SOILED for 21 Days, #1 TUB 05/02/18 Lansoprazole* (Lansoprazole*) 30 Mg Capsule.dr, 30 MG GTB BID for GERD, CAP 05/02/18 Clopidogrel Bisulfate* (Clopidogrel Bisulfate*) 75 Mg Tablet, 75 MG G-TUBE DAILY for DVT, #30 TAB 05/02/18 Chlorhexidine Gluconate* (Chlorhexidine Gluconate*) 118 Ml Liquid, 15 ML TOP BID, ML GIVE 15ML BY MOUTH TWO TIMES A DAY FOR MOUTH CARE SWAB AND SUCTION 05/02/18 Magnesium Hydroxide* (Milk Of Magnesia*) 400 Mg/5 Ml Oral.susp, 30 ML GTB DAILY PRN for CONSTIPATION, ML 05/02/18 Midodrine* (Midodrine*) 5 Mg Tablet, 5 MG GTB TID for hypotension, TAB hold for systolic BP above 130 05/02/18 Linagliptin (TRADJENTA) 5 Mg Tablet, 5 MG GTB DAILY, TAB 05/02/18 Levothyroxine Sodium* (Levothyroxine Sodium*) 175 Mcg Tablet, 175 MCG GTB BEFORE BREAKFAST for HYPOTHYROIDISM, #30 TAB 05/02/18 Insulin Glargine* (Lantus*) 100 Unit/Ml Soln, 12 UNIT SC BID, #1 VIAL 05/02/18 Folic Acid* (Folic Acid*) 1 Mg Tablet, 1 MG G-TUBE DAILY for SUPPLEMENT, TAB 05/02/18 Mineral Oil* (Fleet* Mineral Oil Enema) 133 Ml Oil, 133 ML [place] NEEDED PRN for CONSTIPATION, ENEMA 05/02/18 Bisacodyl (Dulcolax) 10 Mg Supp.rect, 10 MG RC Q48H PRN for CONSTIPATION, SUPP .RECT 05/02/18 Cholecalciferol* (Vitamin D3*) 1,000 Unit Tablet, 1000 UNIT G-TUBE DAILY for SUPPLEMENT, TAB GIVE 5 TABLETS VIA GTUBE DAILY 05/02/18 Bumetanide* (Bumetanide*) 1 Mg Tablet, 1 MG G-TUBE DAILY for DIURETIC, TAB 05/02/18 Atorvastatin* (Atorvastatin*) 40 Mg Tablet, 40 MG G-TUBE QHS for HYPERLPIDIMIA, #30 TAB 05/02/18 Lorazepam* (Lorazepam*) 1 Mg Tablet, 1 MG GTB Q6 PRN for ANXIETY, #60 TAB 05/02/18 Aspirin Ec (Aspir 81) 81 Mg Tablet.dr, 81 MG G-TUBE DAILY, #30 TAB 05/02/18 Glycerin/Propylene Glycol (ARTIFICIAL TEARS DROPS) 30 Ml Drops, 30 ML OP PRN for DRY EYES, BOTTLE 05/02/18 Peg 400/Hypromellose/Glycerin (ARTIFICIAL TEARS DROPS) 15 Ml Drops, 2 DROP OP Q2H PRN for dry eyes, BOTTLE 05/02/18 Allopurinol* (Allopurinol*) 100 Mg Tablet, 100 MG GTB DAILY for GOUT, TAB 05/02/18 Medications Current Medications Miscellaneous Information (Pending Santyl Order For Wound Care) This patient monroy... PRN PRN XX WOUND CARE; Start 05/02/18 at 08:00 Miscellaneous Information 1 ea NOTE XX ; Start 05/02/18 at 08:30 Glucose (Glutose) 15 gm Q15M PRN PO DECREASED GLUCOSE; Start 05/02/18 at 08:30 Glucose (Glutose) 22.5 gm Q15M PRN PO DECREASED GLUCOSE; Start 05/02/18 at 08:30 Dextrose (D50w Syringe) 25 ml Q15M PRN IV DECREASED GLUCOSE; Start 05/02/18 at 08:30 Dextrose (D50w Syringe) 50 ml Q15M PRN IV DECREASED GLUCOSE; Start 05/02/18 at 08:30 Glucagon (Glucagen) 1 mg Q15M PRN IM DECREASED GLUCOSE; Start 05/02/18 at 08:30 Glucose (Glutose) 15 gm Q15M PRN BUCCAL DECREASED GLUCOSE; Start 05/02/18 at 08:30 Acetaminophen (Tylenol Tab) 650 mg Q4H PRN GTB MILD PAIN(1-3)OR ELEVATED TEMP; Start 05/02/18 at 08:30 Allopurinol (Zyloprim) 100 mg DAILY GTB Last administered on 05/03/18at 09:19; Admin Dose 100 MG; Start 05/02/18 at 09:00 Atorvastatin Calcium (Lipitor) 40 mg QHS GTB Last administered on 05/02/18 21:35; Admin Dose 40 MG; Start 05/02/18 at 21:00 Bisacodyl (Dulcolax Supp) 10 mg Q48H PRN [place] CONSTIPATION; Start 05/02/18 at 08:30 Cholecalciferol (Vitamin D) 1,000 unit DAILY GTB Last administered on 05/03/18 09:18; Admin Dose 1,000 UNIT; Start 05/02/18 at 09:00 Fenofibrate (Tricor) 48 mg DAILY GTB Last administered on 05/03/18 09:19; Admin Dose 48 MG; Start 05/02/18 at 09:00 Folic Acid (Folic Acid) 1 mg DAILY GTB Last administered on 05/03/18 09:18; A dmin Dose 1 MG; Start 05/02/18 at 09:00 Albuterol/ Ipratropium (Duoneb) 3 ml Q6 PRN NEB SHORTNESS OF BREATH; Start 05/02/18 at 08:30 Lansoprazole (Prevacid) 30 mg BID GTB Last administered on 05/03/18 09:18; Admin Dose 30 MG; Start 05/02/18 at 09:00 Levothyroxine Sodium (Synthroid) 175 mcg BEFORE BREAKFAST GTB Last administered on 05/03/18 06:47; Admin Dose 175 MCG; Start 05/03/18 at 07:00 Linagliptin (Tradjenta) 5 mg DAILY GTB Last administered on 05/03/18 09:19; Admin Dose 5 MG; Start 05/02/18 at 09:00 Lorazepam (Ativan) 1 mg Q4H PRN GTB ANXIETY; Start 05/02/18 at 08:30 Magnesium Hydroxide (Milk Of Mag) 30 ml DAILY PRN GTB CONSTIPATION; Start 05/02/18 at 08:30 Midodrine (Proamatine) 5 mg TID GTB Last administered on 05/03/18 13:08; Admin Dose 5 MG; Start 05/02/18 at 09:00 Diagnostic Test (Pha) (Accu-Chek) 1 ea AC MEALS AND BEDTIME XX Last administered on 05/03/18 16:58; Admin Dose 1 EA; Start 05/02/18 at 11:20 Collagenase (Santyl) 1 applic PRN PRN TOP NEEDED FOR " SOILED AREA(S); Start 05/02/18 at 13:00 Collagenase (Santyl) 1 applic BID TOP Last administered on 05/03/18at 09:19; Admin Dose 1 APPLIC; Start 05/02/18 at 21:00 Insulin Aspart (Novolog Insulin Pen) (Adult SC Insulin - Mild Algorithm)... Q6 SC Last administered on 05/03/18at 17:02; Admin Dose 2 UNIT; Start 05/03/18 at 06:00 Alteplase, Recombinant (Cathflo (Activase)) 2 mg MAY REPEAT X1 PRN CATHETER IF CATHETER REMAINS OCCULUDED; Start 05/03/18 at 07:30 Insulin Glargine (Lantus) 16 units BID SC Last administered on 05/03/18at 11:59; Admin Dose 16 UNITS; Start 05/03/18 at 10:00 Bumetanide (Bumex) 1 mg BID DIURETICS IV Last administered on 05/03/18at 17:38; Admin Dose 1 MG; Start 05/03/18 at 09:00 Piperacillin Sod/ Tazobactam Sod 100 ml @ 200 mls/hr Q8 IVPB ; Start 05/03/18 at 22:00 Assessment/Plan Hospital Course (Demo Recall) Atrial fibrillation/flutter with rapid ventricular response: Currently heart rate is under control. Probably new secondary to respiratory distress and hypoxemia Tracheal bleeding possibly arterial: Currently has improved Hypoxemic respiratory failure with tracheostomy Coronary arteries are going bypass graft History of hypertension Peripheral vascular disease Diabetes Dysphagia status post PEG placement Chronic congestive heart failure/anasarca Severe anemia Recommendations: Patient off of any anticoagulation or aspirin due to active bleeding Bleeding workup as per ENT and internal medicine team Diabetic control with insulin as per internal medicine Statin will be continued as well I will give a dose of digoxin to try to control the heart rate better Transfusion as needed. Currently H&H remained stable Continue to monitor on telemetry Thank you for his referral will continue to monitor with you YVON WATTERS MD [facility] YVON WATTERS MD May 03, 2018 18:54
[2018-05-03] MEDS ORDERED: DIGOXIN 500 MCG INJ IV ONE (19:00)
[2018-05-03] MEDS: ATORVASTATIN 40 MG TAB GTB SCH (20:33)
[2018-05-03] MEDS: PIPER-TAZO 3.375 GM IV (PMX) 100 ML IVPB SCH (21:33)
[2018-05-04] VITALS (24 sets, daily range): BP systolic 112–132; BP diastolic 49–71; PULSE 67–96; RESP 1–25
[2018-05-04] MEDS: PIPER-TAZO 3.375 GM IV (PMX) 100 ML IVPB SCH (05:28)
[2018-05-04] MEDS: BUMETANIDE 1 MG INJ IV SCH (05:28)
[2018-05-04] MEDS: LEVOTHYROXINE 175 MCG TAB GTB SCH (05:28)
[2018-05-04] MEDS: Insulin NOVOLOG SS MILD Algorithm (NPO/TPN/ENTERAL FEEDS) SC SCH ×4 (05:34→23:56)
[2018-05-04] MEDS: ACCU-CHEK XX SCH ×4 (07:58→21:04)
[2018-05-04] MEDS: ALLOPURINOL 100 MG TAB GTB SCH (09:10)
[2018-05-04] MEDS: MIDODRINE 5 MG TAB GTB SCH ×3 (09:10→21:03)
[2018-05-04] MEDS: CHOLECALCIFEROL 1,000 UNIT TAB GTB SCH (09:10)
[2018-05-04] MEDS: LINAGLIPTIN 5 MG TABLET GTB SCH (09:10)
[2018-05-04] MEDS: FENOFIBRATE 48 MG TAB GTB SCH (09:10)
[2018-05-04] MEDS: FOLIC ACID 1 MG TAB GTB SCH (09:11)
[2018-05-04] MEDS: COLLAGENASE 5 GM (UD JAR) TOP SCH ×2 (09:11→21:04)
[2018-05-04] MEDS: LANSOPRAZOLE 30 MG CAP GTB SCH ×2 (09:11→21:03)
[2018-05-04] MEDS: INSULIN GLARGINE [LANTus] (100 UNITS/ML) SYG SC SCH ×2 (09:13→21:06)
--- NOTE | 2018-05-04 10:36 | PN ---
Date/Time of Note Date/Time of Note DATE: 05/04/18 TIME: 10:33 Assessment/Plan VTE Prophylaxis Risk score (from Nsg)>0 risk: 11 SCD applied (from Ns): No SCD contraindicated: other Pharmacological prophylaxis: other Lines/Catheters [facility]from [facility] Mid Line Urinary Cath still in place: No Assessment/Plan Hospital Course SUBJECTIVE: referral was made for patient to be transferred to tertiary center for possible embolization of external iliac artery branch. The patient was seen by ENT with no source of bleeding. Interventional radiology and vascular surgery recommended embolization. Interventional radiology unfortunately is not able to do embolization of the head and neck and recommended transfer to a tertiary center. The patient overnight had minimal tracheal bleed. No other events noted. no fever, chills, new rash, hematuria or melena vent settings were reviewed d/w Dr Kee OBJECTIVE: HEENT: Head is normocephalic. NECK: Supple. HEART: Regular rate. LUNGS: Show diminished breath sounds at base. ABDOMEN: Soft, nontender to palpation without rebound or guarding. EXTREMITIES: Negative for clubbing, cyanosis. Positive edema. Diffuse anasarca. DERMATOLOGIC: No rashes. MUSCULOSKELETAL: No joint effusion. NEUROLOGIC: No change in exam. MEDICATIONS: Reviewed. LABORATORY DATA: Shows sodium 128, potassium 4.6, chloride 84, BUN 78, creatinine 1.55. White count 15.2, hemoglobin 10.2, platelet count is 296. ASSESSMENT AND PLAN: 1. Acute tracheal bleed. Etiology is felt to be secondary to left external carotid artery distal branch. As stated above, patient has been advised by ENT, pulmonary and interventional radiology. Unable to do embolization of the head and neck at this facility. Accepted transfer has been placed for tertiary center. Patient's tracheal bleeding; however, has improved. The patient is status post 4 units of PRBC. Will continue to monitor hemoglobin and hematocrit levels. Continue to hold antiplatelet therapy, monitor closely. 2. Ventilator dependent respiratory failure. Vent settings and ABG was reviewed. Continue to monitor. 3. Systemic inflammatory response syndrome, possible sepsis. The patient has elevated white count. Unclear if this is infectious or reactive. The patient is on IV antibiotics. We will follow up cultures. Follow up with infectious d isease. 4. Dysphagia, status post PEG, continue tube feeding. 5. Anemia secondary to atrial bleed, status post blood transfusion. Continue to monitor. 6. Possible vaginal bleed. Patient had a pelvic ultrasound which showed no free fluids. No visualization of the ovaries. Will continue to monitor. If bleeding continues, consider STRUCTURAL DRAFTER evaluation. 7. Hyponatremia secondary to acute kidney injury, chronic kidney disease. The patient's free water flushes have been limited. Will continue to monitor serial sodium levels. 8. Acute kidney injury on top of chronic kidney disease. Etiology is secondary to hemodynamics and possibly contrast nephropathy. will hold bumex 9. Volume overload secondary to acute heart failure. 10. Diabetes. Glucose levels remain elevated. We will adjust insulin regimen. 11. Dyslipidemia. Continue statin therapy. 12. History of coronary artery disease, status post coronary artery bypass graft. Continue medical management. 13. Peripheral arterial disease. 14. Gastroesophageal reflux disease. 15. Hypothyroidism. Continue Synthroid. 16. Lower extremity wounds. Continue wound care. 17. UTI: cultures were reviewed. abx per ID 18. possible PNA: cxr reviewed Result Diagram: 05/04/18 0553 05/04/18 0553 Results 24hrs Laboratory Tests Test 05/03/18 11:55 05/03/18 16:58 05/03/18 20:32 05/03/18 23:40 Bedside Glucose 252 H 211 215 179 Test 05/04/18 05:27 05/04/18 05:53 05/04/18 07:56 Bedside Glucose 182 175 White Blood Count 11.0 #H Red Blood Count 3.45 L Hemoglobin 10.7 L Hematocrit 33.4 L Mean Corpuscular 96.8 Volume Mean Corpuscular 31.0 Hemoglobin Mean Corpuscular 32.0 Hemoglobin Concent Red Cell 18.7 H Distribution Width Platelet Count 282 Mean Platelet Volume 9.9 Immature 0.900 H Granulocytes % Neutrophils % 81.9 H Lymphocytes % 12.3 L Monocytes % 4.4 Eosinophils % 0.2 Basophils % 0.3 Nucleated Red Blood 0.0 Cells % Immature 0.100 H Granulocytes # Neutrophils # 9.0 H Lymphocytes # 1.4 Monocytes # 0.5 Eosinophils # 0.0 Basophils # 0.0 Nucleated Red Blood 0.0 Cells # Sodium Level 131 L Potassium Level 4.3 Chloride Level 88 L Carbon Dioxide Level 38 H Anion Gap 5 Blood Urea Nitrogen 79 H Creatinine 1.62 H Est Glomerular Filtrat Rate mL/min Glucose Level 153 Calcium Level 8.1 L Phosphorus Level 3.6 Magnesium Level 2.8 H Exam/Review of Systems Exam Vitals Vital Signs Date Temp Pulse Resp B/P (MAP) Pulse Ox O2 O2 Flow FiO2 Time Delivery Rate 05/04/18 73 24 99 30 09:57 05/04/18 98.4 114/60 Trach 07:07 (78) Collar Intake and Output 05/03/18 05/03/18 05/04/18 1515:00 23:00 07:00 IntakeIntake Total 700 ml 1130 ml 440 ml OutputOutput Total 500 ml 750 ml BalanceBalance 700 ml 630 ml -310 ml Results Results 24hrs Laboratory Tests Test 05/03/18 11:55 05/03/18 16:58 05/03/18 20:32 05/03/18 23:40 Bedside Glucose 252 H 211 215 179 Test 05/04/18 05:27 05/04/18 05:53 05/04/18 07:56 Bedside Glucose 182 175 White Blood Count 11.0 #H Red Blood Count 3.45 L Hemoglobin 10.7 L Hematocrit 33.4 L Mean Corpuscular 96.8 Volume Mean Corpuscular 31.0 Hemoglobin Mean Corpuscular 32.0 Hemoglobin Concent Red Cell 18.7 H Distribution Width Platelet Count 282 Mean Platelet Volume 9.9 Immature 0.900 H Granulocytes % Neutrophils % 81.9 H Lymphocytes % 12.3 L Monocytes % 4.4 Eosinophils % 0.2 Basophils % 0.3 Nucleated Red Blood 0.0 Cells % Immature 0.100 H Granulocytes # Neutrophils # 9.0 H Lymphocytes # 1.4 Monocytes # 0.5 Eosinophils # 0.0 Basophils # 0.0 Nucleated Red Blood 0.0 Cells # Sodium Level 131 L Potassium Level 4.3 Chloride Level 88 L Carbon Dioxide Level 38 H Anion Gap 5 Blood Urea Nitrogen 79 H Creatinine 1.62 H Est Glomerular Filtrat Rate mL/min Glucose Level 153 Calcium Level 8.1 L Phosphorus Level 3.6 Magnesium Level 2.8 H Medications Medication Current Medications Miscellaneous Information (Pending Santyl Order For Wound Care) This patient monroy... PRN PRN XX WOUND CARE; Start 05/02/18 at 08:00 Miscellaneous Information 1 ea NOTE XX ; Start 05/02/18 at 08:30 Glucose (Glutose) 15 gm Q15M PRN PO DECREASED GLUCOSE; Start 05/02/18 at 08:30 Glucose (Glutose) 22.5 gm Q15M PRN PO DECREASED GLUCOSE; Start 05/02/18 at 08:30 Dextrose (D50w Syringe) 25 ml Q15M PRN IV DECREASED GLUCOSE; Start 05/02/18 at 08:30 Dextrose (D50w Syringe) 50 ml Q15M PRN IV DECREASED GLUCOSE; Start 05/02/18 at 08:30 Glucagon (Glucagen) 1 mg Q15M PRN IM DECREASED GLUCOSE; Start 05/02/18 at 08:30 Glucose (Glutose) 15 gm Q15M PRN BUCCAL DECREASED GLUCOSE; Start 05/02/18 at 08:30 Acetaminophen (Tylenol Tab) 650 mg Q4H PRN GTB MILD PAIN(1-3)OR ELEVATED TEMP; Start 05/02/18 at 08:30 Allopurinol (Zyloprim) 100 mg DAILY GTB Last administered on 05/04/18at 09:10; Admin Dose 100 MG; Start 05/02/18 at 09:00 Atorvastatin Calcium (Lipitor) 40 mg QHS GTB Last administered on 05/03/18at 20:33; Admin Dose 40 MG; Start 05/02/18 at 21:00 Bisacodyl (Dulcolax Supp) 10 mg Q48H PRN [place] CONSTIPATION; Start 05/02/18 at 08:30 Cholecalciferol (Vitamin D) 1,000 unit DAILY GTB Last administered on 05/04/18at 09:10; Admin Dose 1,000 UNIT; Start 05/02/18 at 09:00 Fenofibrate (Tricor) 48 mg DAILY GTB Last administered on 05/04/18at 09:10; Admin Dose 48 MG; Start 05/02/18 at 09:00 Folic Acid (Folic Acid) 1 mg DAILY GTB Last administered on 05/04/18at 09:11; Admin Dose 1 MG; Start 05/02/18 at 09:00 Albuterol/ Ipratropium (Duoneb) 3 ml Q6 PRN NEB SHORTNESS OF BREATH; Start 05/02/18 at 08:30 Lansoprazole (Prevacid) 30 mg BID GTB Last administered on 05/04/18at 09:11; Admin Dose 30 MG; Start 05/02/18 at 09:00 Levothyroxine Sodium (Synthroid) 175 mcg BEFORE BREAKFAST GTB Last administered on 05/04/18 05:28; Admin Dose 175 MCG; Start 05/03/18 at 07:00 Linagliptin (Tradjenta) 5 mg DAILY GTB Last administered on 05/04/18 09:10; Admin Dose 5 MG; Start 05/02/18 at 09:00 Lorazepam (Ativan) 1 mg Q4H PRN GTB ANXIETY; Start 05/02/18 at 08:30 Magnesium Hydroxide (Milk Of Mag) 30 ml DAILY PRN GTB CONSTIPATION; Start 05/02/18 at 08:30 Midodrine (Proamatine) 5 mg TID GTB Last administered on 05/04/18 09:10; Admin Dose 5 MG; Start 05/02/18 at 09:00 Diagnostic Test (Pha) (Accu-Chek) 1 ea AC MEALS AND BEDTIME XX Last administered on 05/04/18 07:58; Admin Dose 1 EA; Start 05/02/18 at 11:20 Collagenase (Santyl) 1 applic PRN PRN TOP NEEDED FOR " SOILED AREA(S); Start 05/02/18 at 13:00 Collagenase (Santyl) 1 applic BID TOP Last administered on 05/04/18 09:11; Admin Dose 1 APPLIC; Start 05/02/18 at 21:00 Insulin Aspart (Novolog Insulin Pen) (Adult SC Insulin - Mild Algorithm)... Q6 SC Last administered on 05/04/18 05:34; Admin Dose 2 UNIT; Start 05/03/18 at 06:00 Alteplase, Recombinant (Cathflo (Activase)) 2 mg MAY REPEAT X1 PRN CATHETER IF CATHETER REMAINS OCCULUDED; Start 05/03/18 at 07:30 Insulin Glargine (Lantus) 16 units BID SC Last administered on 05/04/18 09:13; Admin Dose 16 UNITS; Start 05/03/18 at 10:00 Bumetanide (Bumex) 1 mg BID DIURETICS IV Last administered on 05/04/18 05:28; Admin Dose 1 MG; Start 05/03/18 at 09:00 Piperacillin Sod/ Tazobactam Sod 100 ml @ 200 mls/hr Q8 IVPB Last administered on 05/04/18 05:28; Admin Dose 200 MLS/HR; Start 05/03/18 at 22:00 Digoxin (Digoxin) 125 mcg DAILY@1300 IV ; Start 05/04/18 at 14:00; Stop 05/05/18 at 13:59 SAMY PHILLIPS DO May 04, 2018 10:36
--- NOTE | 2018-05-04 11:29 | CONS ---
Assessment/Plan Assessment/Plan Hospital Course (Demo Recall) ID PROGRESS NOTE CURRENT ABX: DAY # Zosyn s/p Cefepime 05/04/18 0553 05/04/18 0553 24H INTERVAL SUMMARY * Overweight 88 yo F awake, alert, VSS, looks on the Vent, no fevers, NAD, PICC line RUEXT, FC -- chart reviewed DIAGNOSTIC IMAGING * 05/02/18 CXR: IMPRESSION: Interval increase in diffuse bilateral air space opacities, represent increasing edema versus pneumonia. Stable small right pleural effusion. MICRO/OTHER * 05/02/18 BCx (-) * 05/02/18 URINE CULTURE Final Organism 1 ENTEROCOCCUS SPECIES COLONY COUNT 50,000 - 60,000 CFU/ml ENT SPS M.I.C. RX --------- --- AMPICILLIN <=2 S CIPROFLOXACIN <=0.5 S LEVOFLOXACIN 0.5 S NITROFURANTOIN <=16 S PENICILLIN-G 2 S VANCOMYCIN 1 S PHYSICAL EXAMINATION: GENERAL: VSS HEENT: AT, NC, anicteric NECK: Supple, CHEST: Equal chest rise bilaterally, without dyspnea on observation HEART: Pulse RRR ABDOMEN: Soft / NT EXTREMITIES: Warm, dry / puffy hand edema SKIN: No rash, no diaphoresis ID ASSESSMENT 88 yo F admit with: 1. Sepsis present on admission = RESOLVING 2. Urinary tract infection 3. Acute tracheal bleed with acute anemia on admission status post 4 units of PRBC 4. Possible aspiration pneumonia 5. Diabetes 6. Dysphagia 7. Acute renal insufficiency on possible CKD (+)MRSA ABX ALLERGIES: KNDA INVASIVES: PIV CURRENT ABX: DAY # Zosyn ID RECOMMENDATIONS/PLAN: 1. Continue Zosyn -- renal adjust dose to 2.25mg Q8H per rising serum creatinine in 88 yo F Consultation Date/Type/Reason Admit Date/Time May 02, 2018 at 01:32 Initial Consult Date 05/02/18 Requesting Provider: JAMES GIRARD Date/Time of Note DATE: 05/04/18 TIME: 11:28 Exam/Review of Systems Exam Vitals Vital Signs Date Temp Pulse Resp B/P (MAP) Pulse Ox O2 O2 Flow FiO2 Time Delivery Rate 05/04/18 73 24 99 30 09:57 05/04/18 98.4 114/60 Trach 07:07 (78) Collar Intake and Output 05/03/18 05/03/18 05/04/18 1515:00 23:00 07:00 IntakeIntake Total 700 ml 1130 ml 440 ml OutputOutput Total 500 ml 750 ml BalanceBalance 700 ml 630 ml -310 ml Results Result Diagram: 05/04/18 0553 05/04/18 0553 Results 24hrs Laboratory Tests Test 05/03/18 11:55 05/03/18 16:58 05/03/18 20:32 05/03/18 23:40 Bedside Glucose 252 H 211 215 179 Test 05/04/18 05:27 05/04/18 05:53 05/04/18 07:56 Bedside Glucose 182 175 White Blood Count 11.0 #H Red Blood Count 3.45 L Hemoglobin 10.7 L Hematocrit 33.4 L Mean Corpuscular 96.8 Volume Mean Corpuscular 31.0 Hemoglobin Mean Corpuscular 32.0 Hemoglobin Concent Red Cell 18.7 H Distribution Width Platelet Count 282 Mean Platelet Volume 9.9 Immature 0.900 H Granulocytes % Neutrophils % 81.9 H Lymphocytes % 12.3 L Monocytes % 4.4 Eosinophils % 0.2 Basophils % 0.3 Nucleated Red Blood 0.0 Cells % Immature 0.100 H Granulocytes # Neutrophils # 9.0 H Lymphocytes # 1.4 Monocytes # 0.5 Eosinophils # 0.0 Basophils # 0.0 Nucleated Red Blood 0.0 Cells # Sodium Level 131 L Potassium Level 4.3 Chloride Level 88 L Carbon Dioxide Level 38 H Anion Gap 5 Blood Urea Nitrogen 79 H Creatinine 1.62 H Est Glomerular Filtrat Rate mL/min Glucose Level 153 Calcium Level 8.1 L Phosphorus Level 3.6 Magnesium Level 2.8 H Medications Medication Current Medications Miscellaneous Information (Pending Santyl Order For Wound Care) This patient monroy... PRN PRN XX WOUND CARE; Start 05/02/18 at 08:00 Miscellaneous Information 1 ea NOTE XX ; Start 05/02/18 at 08:30 Glucose (Glutose) 15 gm Q15M PRN PO DECREASED GLUCOSE; Start 05/02/18 at 08:30 Glucose (Glutose) 22.5 gm Q15M PRN PO DECREASED GLUCOSE; Start 05/02/18 at 08:30 Dextrose (D50w Syringe) 25 ml Q15M PRN IV DECREASED GLUCOSE; Start 05/02/18 at 08:30 Dextrose (D50w Syringe) 50 ml Q15M PRN IV DECREASED GLUCOSE; Start 05/02/18 at 08:30 Glucagon (Glucagen) 1 mg Q15M PRN IM DECREASED GLUCOSE; Start 05/02/18 at 08:30 Glucose (Glutose) 15 gm Q15M PRN BUCCAL DECREASED GLUCOSE; Start 05/02/18 at 08:30 Acetaminophen (Tylenol Tab) 650 mg Q4H PRN GTB MILD PAIN(1-3)OR ELEVATED TEMP; Start 05/02/18 at 08:30 Allopurinol (Zyloprim) 100 mg DAILY GTB Last administered on 05/04/18 09:10; Admin Dose 100 MG; Start 05/02/18 at 09:00 Atorvastatin Calcium (Lipitor) 40 mg QHS GTB Last administered on 05/03/18at 2 0:33; Admin Dose 40 MG; Start 05/02/18 at 21:00 Bisacodyl (Dulcolax Supp) [address] CONSTIPATION; Start 05/02/18 at 08:30 Cholecalciferol (Vitamin D) 1,000 unit DAILY GTB Last administered on 05/04/18 09:10; Admin Dose 1,000 UNIT; Start 05/02/18 at 09:00 Fenofibrate (Tricor) 48 mg DAILY GTB Last administered on 05/04/18 09:10; Admin Dose 48 MG; Start 05/02/18 at 09:00 Folic Acid (Folic Acid) 1 mg DAILY GTB Last administered on 05/04/18 09:11; Admin Dose 1 MG; Start 05/02/18 at 09:00 Albuterol/ Ipratropium (Duoneb) 3 ml Q6 PRN NEB SHORTNESS OF BREATH; Start 05/02/18 at 08:30 Lansoprazole (Prevacid) 30 mg BID GTB Last administered on 05/04/18 09:11; Admin Dose 30 MG; Start 05/02/18 at 09:00 Levothyroxine Sodium (Synthroid) 175 mcg BEFORE BREAKFAST GTB Last administered on 05/04/18at 05:28; Admin Dose 175 MCG; Start 05/03/18 at 07:00 Linagliptin (Tradjenta) 5 mg DAILY GTB Last administered on 05/04/18 09:10; Admin Dose 5 MG; Start 05/02/18 at 09:00 Lorazepam (Ativan) 1 mg Q4H PRN GTB ANXIETY; Start 05/02/18 at 08:30 Magnesium Hydroxide (Milk Of Mag) 30 ml DAILY PRN GTB CONSTIPATION; Start 05/02/18 at 08:30 Midodrine (Proamatine) 5 mg TID GTB Last administered on 05/04/18at 09:10; Admin Dose 5 MG; Start 05/02/18 at 09:00 Diagnostic Test (Pha) (Accu-Chek) 1 ea AC MEALS AND BEDTIME XX Last administered on 05/04/18at 07:58; Admin Dose 1 EA; Start 05/02/18 at 11:20 Collagenase (Santyl) 1 applic PRN PRN TOP NEEDED FOR " SOILED AREA(S); Start 05/02/18 at 13:00 Collagenase (Santyl) 1 applic BID TOP Last administered on 05/04/18at 09:11; Admin Dose 1 APPLIC; Start 05/02/18 at 21:00 Insulin Aspart (Novolog Insulin Pen) (Adult SC Insulin - Mild Algorithm)... Q6 SC Last administered on 05/04/18 05:34; Admin Dose 2 UNIT; Start 05/03/18 at 06:00 Alteplase, Recombinant (Cathflo (Activase)) 2 mg MAY REPEAT X1 PRN CATHETER IF CATHETER REMAINS OCCULUDED; Start 05/03/18 at 07:30 Insulin Glargine (Lantus) 16 units BID SC Last administered on 05/04/18at 09:13; Admin Dose 16 UNITS; Start 05/03/18 at 10:00 Piperacillin Sod/ Tazobactam Sod 100 ml @ 200 mls/hr Q8 IVPB Last administered on 05/04/18 05:28; Admin Dose 200 MLS/HR; Start 05/03/18 at 22:00 Digoxin (Digoxin) 125 mcg DAILY@1300 IV ; Start 05/04/18 at 14:00; Stop 05/05/18 at 13:59 RUSTY IRIZARRY NP May 04, 2018 11:29
[2018-05-04] MEDS: PIPER-TAZO 2.25 GM (PMX) 50 ML IVPB SCH ×2 (14:27→21:04)
[2018-05-04] MEDS: DIGOXIN 500 MCG INJ IV SCH (14:27)
--- NOTE | 2018-05-04 15:57 | CONS ---
Consult Date/Type/Reason Admit Date/Time May 02, 2018 at 01:32 Initial Consult Date 05/02/18 Type of Consultation: Pulm Requesting Provider: JAMES GIRARD Date/Time of Note DATE: 05/04/18 TIME: 15:55 Subjective No events. No significant bleeding from trach noted. Objective Vitals Vital Signs Date Temp Pulse Resp B/P (MAP) Pulse Ox O2 O2 Flow FiO2 Time Delivery Rate 05/04/18 97.4 67 21 125/56 95 Trach 15:29 (79) Collar 05/04/18 30 15:24 Intake and Output 05/03/18 05/03/18 05/04/18 1515:00 23:00 07:00 IntakeIntake Total 700 ml 1130 ml 440 ml OutputOutput Total 500 ml 750 ml BalanceBalance 700 ml 630 ml -310 ml Exam HEENT: Neck supple; no JVD; no LAD; trach site with minimal blood CVS: RRR, S1 and S2 CHEST: Clear ABD: Soft, NT, + BS EXT: No c/c/e Results/Medications Result Diagram: 05/04/18 0553 05/04/18 0553 Results 24 hrs Laboratory Tests Test 05/03/18 16:58 05/03/18 20:32 05/03/18 23:40 05/04/18 05:27 Bedside Glucose 211 215 179 182 Test 05/04/18 05:53 05/04/18 07:56 05/04/18 11:33 White Blood Count 11.0 #H Red Blood Count 3.45 L Hemoglobin 10.7 L Hematocrit 33.4 L Mean Corpuscular 96.8 Volume Mean Corpuscular 31.0 Hemoglobin Mean Corpuscular 32.0 Hemoglobin Concent Red Cell 18.7 H Distribution Width Platelet Count 282 Mean Platelet Volume 9.9 Immature 0.900 H Granulocytes % Neutrophils % 81.9 H Lymphocytes % 12.3 L Monocytes % 4.4 Eosinophils % 0.2 Basophils % 0.3 Nucleated Red Blood 0.0 Cells % Immature 0.100 H Granulocytes # Neutrophils # 9.0 H Lymphocytes # 1.4 Monocytes # 0.5 Eosinophils # 0.0 Basophils # 0.0 Nucleated Red Blood 0.0 Cells # Sodium Level 131 L Potassium Level 4.3 Chloride Level 88 L Carbon Dioxide Level 38 H Anion Gap 5 Blood Urea Nitrogen 79 H Creatinine 1.62 H Est Glomerular Filtrat Rate mL/min Glucose Level 153 Calcium Level 8.1 L Phosphorus Level 3.6 Magnesium Level 2.8 H Bedside Glucose 175 169 Home Meds Reported Medications Ipratropium-Albuterol (Ipratropium-Albuterol) 0.5-3 Mg/3 Ml Ampul.neb, 3 ML INHALATION Q6 PRN for SHORTNESS OF BREATH, #30 VIAL 05/02/18 Lorazepam* (Lorazepam*) 1 Mg Tablet, 1 MG G-TUBE Q4H PRN for ANXIETY, #30 TAB 05/02/18 Insulin Aspart* (Novolog Insulin Pen*) 100 Unit/Ml Soln, 0 SC .SLIDING SCALE AC, EA INJECT PER SLIDING SCALE;IF 0-149= 0 UNIT; 10-199= 3UNITS; 200-249= 4 UNITS; 250-299= 7UNITS; 300-349= 10UNITS; 350-399=12UNITS; MORE THAN 400 GIVE 12 UNITS, AND NOTIFY MD, SUBCUTANEOUSLY EVERY 6HOURS FOR DM 05/02/18 Acetaminophen* (Acetaminophen*) 325 Mg Tablet, 650 MG GTB Q4H PRN for PAIN AND OR ELEVATED TEMP, #30 TAB 05/02/18 Fenofibrate Nanocrystallized* (Fenofibrate*) 48 Mg Tablet, 48 MG GTB DAILY for H YPERLIPIDIMIA, TAB 05/02/18 Collagenase* (Santyl*) 30 Gm Oint..gm., 1 APPLIC TOP .SOILED PRN for SOILED for 21 Days, #1 TUB 05/02/18 Lansoprazole* (Lansoprazole*) 30 Mg Capsule.dr, 30 MG GTB BID for GERD, CAP 05/02/18 Clopidogrel Bisulfate* (Clopidogrel Bisulfate*) 75 Mg Tablet, 75 MG G-TUBE DAILY for DVT, #30 TAB 05/02/18 Chlorhexidine Gluconate* (Chlorhexidine Gluconate*) 118 Ml Liquid, 15 ML TOP BID, ML GIVE 15ML BY MOUTH TWO TIMES A DAY FOR MOUTH CARE SWAB AND SUCTION 05/02/18 Magnesium Hydroxide* (Milk Of Magnesia*) 400 Mg/5 Ml Oral.susp, 30 ML GTB DAILY PRN for CONSTIPATION, ML 05/02/18 Midodrine* (Midodrine*) 5 Mg Tablet, 5 MG GTB TID for hypotension, TAB hold for systolic BP above 130 05/02/18 Linagliptin (TRADJENTA) 5 Mg Tablet, 5 MG GTB DAILY, TAB 05/02/18 Levothyroxine Sodium* (Levothyroxine Sodium*) 175 Mcg Tablet, 175 MCG GTB BEFORE BREAKFAST for HYPOTHYROIDISM, #30 TAB 05/02/18 Insulin Glargine* (Lantus*) 100 Unit/Ml Soln, 12 UNIT SC BID, #1 VIAL 05/02/18 Folic Acid* (Folic Acid*) 1 Mg Tablet, 1 MG G-TUBE DAILY for SUPPLEMENT, TAB 05/02/18 Mineral Oil* (Fleet* Mineral Oil Enema) 133 Ml Oil, 133 ML IA NEEDED PRN for CONSTIPATION, ENEMA 05/02/18 Bisacodyl (Dulcolax) 10 Mg Supp.rect, 10 MG RC Q48H PRN for CONSTIPATION, SUPP.RECT 05/02/18 Cholecalciferol* (Vitamin D3*) 1,000 Unit Tablet, 1000 UNIT G-TUBE DAILY for SUPPLEMENT, TAB GIVE 5 TABLETS VIA GTUBE DAILY 05/02/18 Bumetanide* (Bumetanide*) 1 Mg Tablet, 1 MG G-TUBE DAILY for DIURETIC, TAB 05/02/18 Atorvastatin* (Atorvastatin*) 40 Mg Tablet, 40 MG G-TUBE QHS for HYPERLPIDIMIA, #30 TAB 05/02/18 Lorazepam* (Lorazepam*) 1 Mg Tablet, 1 MG GTB Q6 PRN for ANXIETY, #60 TAB 05/02/18 Aspirin Ec (Aspir 81) 81 Mg Tablet.dr, 81 MG G-TUBE DAILY, #30 TAB 05/02/18 Glycerin/Propylene Glycol (ARTIFICIAL TEARS DROPS) 30 Ml Drops, 30 ML OP PRN for DRY EYES, BOTTLE 05/02/18 Peg 400/Hypromellose/Glycerin (ARTIFICIAL TEARS DROPS) 15 Ml Drops, 2 DROP OP Q2H PRN for dry eyes, BOTTLE 05/02/18 Allopurinol* (Allopurinol*) 100 Mg Tablet, 100 MG GTB DAILY for GOUT, TAB 05/02/18 Medications Current Medications Miscellaneous [facility] This patient monroy... PRN PRN XX WOUND CARE; Start 05/02/18 at 08:00 Miscellaneous Information 1 ea NOTE XX ; Start 05/02/18 at 08:30 Glucose (Glutose) 15 gm Q15M PRN PO DECREASED GLUCOSE; Start 05/02/18 at 08:30 Glucose (Glutose) 22.5 gm Q15M PRN PO DECREASED GLUCOSE; Start 05/02/18 at 08:30 Dextrose (D50w Syringe) 25 ml Q15M PRN IV DECREASED GLUCOSE; Start 05/02/18 at 08:30 Dextrose (D50w Syringe) 50 ml Q15M PRN IV DECREASED GLUCOSE; Start 05/02/18 at 08:30 Glucagon (Glucagen) 1 mg Q15M PRN IM DECREASED GLUCOSE; Start 05/02/18 at 08:30 Glucose (Glutose) 15 gm Q15M PRN BUCCAL DECREASED GLUCOSE; Start 05/02/18 at 08:30 Acetaminophen (Tylenol Tab) 650 mg Q4H PRN GTB MILD PAIN(1-3)OR ELEVATED TEMP; Start 05/02/18 at 08:30 Allopurinol (Zyloprim) 100 mg DAILY GTB Last administered on 05/04/18at 09:10; Admin Dose 100 MG; Start 05/02/18 at 09:00 Atorvastatin Calcium (Lipitor) 40 mg QHS GTB Last administered on 05/03/18at 20:33; Admin Dose 40 MG; Start 05/02/18 at 21:00 Bisacodyl (Dulcolax Supp) 10 mg Q48H PRN [place] CONSTIPATION; Start 05/02/18 at 08:30 Cholecalciferol (Vitamin D) 1,000 unit DAILY GTB Last administered on 05/04/18 09:10; Admin Dose 1,000 UNIT; Start 05/02/18 at 09:00 Fenofibrate (Tricor) 48 mg DAILY GTB Last administered on 05/04/18 09:10; Admin Dose 48 MG; Start 05/02/18 at 09:00 Folic Acid (Folic Acid) 1 mg DAILY GTB Last administered on 05/04/18 09:11; Admin Dose 1 MG; Start 05/02/18 at 09:00 Albuterol/ Ipratropium (Duoneb) 3 ml Q6 PRN NEB SHORTNESS OF BREATH; Start 05/02/18 at 08:30 Lansoprazole (Prevacid) 30 mg BID GTB Last administered on 3/16/19at 09:11; Admin Dose 30 MG; Start 05/02/18 at 09:00 Levothyroxine Sodium (Synthroid) 175 mcg BEFORE BREAKFAST GTB Last administered on 05/04/18 05:28; Admin Dose 175 MCG; Start 05/03/18 at 07:00 Linagliptin (Tradjenta) 5 mg DAILY GTB Last administered on 05/04/18 09:10; Admin Dose 5 MG; Start 05/02/18 at 09:00 Lorazepam (Ativan) 1 mg Q4H PRN GTB ANXIETY; Start 05/02/18 at 08:30 Magnesium Hydroxide (Milk Of Mag) 30 ml DAILY PRN GTB CONSTIPATION; Start 05/02/18 at 08:30 Midodrine (Proamatine) 5 mg TID GTB Last administered on 05/04/18 13:00; Admin Dose 5 MG; Start 05/02/18 at 09:00 Diagnostic Test (Pha) (Accu-Chek) 1 ea AC MEALS AND BEDTIME XX Last administered on 05/04/18 11:33; Admin Dose 1 EA; Start 05/02/18 at 11:20 Collagenase (Santyl) 1 applic PRN PRN TOP NEEDED FOR " SOILED AREA(S); Start 05/02/18 at 13:00 Collagenase (Santyl) 1 applic BID TOP Last administered on 05/04/18 09:11; Admin Dose 1 APPLIC; Start 05/02/18 at 21:00 Insulin Aspart (Novolog Insulin Pen) (Adult SC Insulin - Mild Algorithm)... Q6 SC Last administered on 05/04/18 11:36; Admin Dose 1 UNIT; Start 05/03/18 at 06:00 Alteplase, Recombinant (Cathflo (Activase)) 2 mg MAY REPEAT X1 PRN CATHETER IF CATHETER REMAINS OCCULUDED; Start 05/03/18 at 07:30 Insulin Glargine (Lantus) 16 units BID SC Last administered on 05/04/18 09:13; Admin Dose 16 UNITS; Start 05/03/18 at 10:00 Digoxin (Digoxin) 125 mcg DAILY@1300 IV Last administered on 05/04/18 14:27; Admin Dose 125 MCG; Start 05/04/18 at 14:00; Stop 05/05/18 at 13:59 Piperacillin Sod/ Tazobactam Sod 50 ml @ 100 mls/hr Q8 IVPB Last administered on 05/04/18at 14:27; Admin Dose 100 MLS/HR; Start 05/04/18 at 14:00 Assessment/Plan Assessment/Plan (Daily) IMP: 1. Carotid bleeding into the trachea--improved. Would need a tertiary care facility for possible embolization. 2. Vent dependent respiratory failure. 3. Prior history of chronic obstructive pulmonary disease. RECS: 1. Follow H/H closely 2. Vent support 3. Am CXR JACK BURROUGHS MD May 04, 2018 15:57
[2018-05-04] MEDS: ATORVASTATIN 40 MG TAB GTB SCH (21:03)
[2018-05-05] VITALS (24 sets, daily range): BP systolic 106–148; BP diastolic 42–65; PULSE 56–87; RESP 17–23
[2018-05-05] MEDS ORDERED: VITAMIN A & D 5 GM OINT PACKET TOP ONE (05:42)
[2018-05-05] MEDS: PIPER-TAZO 2.25 GM (PMX) 50 ML IVPB SCH ×3 (05:59→21:34)
[2018-05-05] MEDS: LEVOTHYROXINE 175 MCG TAB GTB SCH (05:59)
[2018-05-05] MEDS: Insulin NOVOLOG SS MILD Algorithm (NPO/TPN/ENTERAL FEEDS) SC SCH ×3 (06:02→17:47)
[2018-05-05] MEDS: ACCU-CHEK XX SCH ×4 (08:24→21:00)
[2018-05-05] MEDS: INSULIN GLARGINE [LANTus] (100 UNITS/ML) SYG SC SCH ×2 (08:42→21:49)
[2018-05-05] MEDS: COLLAGENASE 5 GM (UD JAR) TOP SCH ×2 (08:43→21:36)
[2018-05-05] MEDS: FENOFIBRATE 48 MG TAB GTB SCH (08:43)
[2018-05-05] MEDS: LINAGLIPTIN 5 MG TABLET GTB SCH (08:43)
[2018-05-05] MEDS: CHOLECALCIFEROL 1,000 UNIT TAB GTB SCH (08:43)
[2018-05-05] MEDS: ALLOPURINOL 100 MG TAB GTB SCH (08:43)
[2018-05-05] MEDS: FOLIC ACID 1 MG TAB GTB SCH (08:43)
[2018-05-05] MEDS: LANSOPRAZOLE 30 MG CAP GTB SCH ×2 (08:44→21:34)
[2018-05-05] MEDS: MIDODRINE 5 MG TAB GTB SCH ×3 (08:44→21:35)
--- NOTE | 2018-05-05 11:25 | PN ---
Date/Time of Note Date/Time of Note DATE: 05/05/18 TIME: 11:25 Assessment/Plan VTE Prophylaxis Risk score (from Nsg)>0 risk: 13 SCD applied (from Ns): No SCD contraindicated: other Pharmacological prophylaxis: other Lines/Catheters IV Catheter Type (from Nrsg): PICC Line Central line still needed: Yes Urinary Cath still in place: No Assessment/Plan Hospital Course SUBJECTIVE: referral was made for patient to be transferred to tertiary center for possible embolization of external iliac artery branch. The patient was seen by ENT with no source of bleeding. Interventional radiology and vascular surgery recommended embolization. Interventional radiology unfortunately is not able to do embolization of the head and neck and recommended transfer to a tertiary center. The patient overnight had minimal tracheal bleed. No other events noted. no fever, chills, new rash, hematuria or melena vent settings were reviewed d/w Dr Kee OBJECTIVE: HEENT: Head is normocephalic. NECK: Supple. HEART: Regular rate. LUNGS: Show diminished breath sounds at base. ABDOMEN: Soft, nontender to palpation without rebound or guarding. EXTREMITIES: Negative for clubbing, cyanosis. Positive edema. Diffuse anasarca. DERMATOLOGIC: No rashes. MUSCULOSKELETAL: No joint effusion. NEUROLOGIC: No change in exam. MEDICATIONS: Reviewed. LABORATORY DATA: Shows sodium 128, potassium 4.6, chloride 84, BUN 78, creatinine 1.55. White count 15.2, hemoglobin 10.2, platelet count is 296. ASSESSMENT AND PLAN: 1. Acute tracheal bleed. Etiology is felt to be secondary to left external carotid artery distal branch. As stated above, patient has been advised by ENT, pulmonary and interventional radiology. Unable to do embolization of the head and neck at this facility. Accepted transfer has been placed for tertiary center. Patient's tracheal bleeding; however, has improved. The patient is status post 4 units of PRBC. Will continue to monitor hemoglobin and hematocrit levels. Continue to hold antiplatelet therapy, monitor closely. 2. Ventilator dependent respiratory failure. Vent settings and ABG was reviewed. Continue to monitor. 3. Systemic inflammatory response syndrome, possible sepsis. The patient has elevated white count. Unclear if this is infectious or reactive. The patient is on IV antibiotics. We will follow up cultures. Follow up with infectious disease. 4. Dysphagia, status post PEG, continue tube feeding. 5. Anemia secondary to atrial bleed, status post blood transfusion. Continue to monitor. 6. Possible vaginal bleed. Patient had a pelvic ultrasound which showed no free fluids. No visualization of the ovaries. Will continue to monitor. If bleeding continues, consider [employer] evaluation. 7. Hyponatremia secondary to acute kidney injury, chronic kidney disease. The patient's free water flushes have been limited. Will continue to monitor serial sodium levels. 8. Acute kidney injury on top of chronic kidney disease. Etiology is secondary to hemodynamics and possibly contrast nephropathy. will hold bumex 9. Volume overload secondary to acute heart failure. 10. Diabetes. Glucose levels remain elevated. We will adjust insulin regimen. 11. Dyslipidemia. Continue statin therapy. 12. History of coronary artery disease, status post coronary artery bypass graft. Continue medical management. 13. Peripheral arterial disease. 14. Gastroesophageal reflux disease. 15. Hypothyroidism. Continue Synthroid. 16. Lower extremity wounds. Continue wound care. 17. UTI: cultures were reviewed. abx per ID 18. possible PNA: cxr reviewed Result Diagram: 05/05/18 0542 05/05/18 0542 Results 24hrs Laboratory Tests Test 05/04/18 11:33 05/04/18 16:50 05/04/18 21:01 05/04/18 23:54 Bedside Glucose 169 179 184 179 Test 05/05/18 05:42 05/05/18 05:58 05/05/18 08:23 White Blood Count 9.2 Red Blood Count 3.27 L Hemoglobin 10.2 L Hematocrit 32.3 L Mean Corpuscular 98.8 Volume Mean Corpuscular 31.2 Hemoglobin Mean Corpuscular 31.6 L Hemoglobin Concent Red Cell 18.5 H Distribution Width Platelet Count 302 Mean Platelet Volume 10.1 Immature 0.600 H Granulocytes % Neutrophils % 75.5 Lymphocytes % 18.8 Monocytes % 4.3 Eosinophils % 0.6 Basophils % 0.2 Nucleated Red Blood 0.0 Cells % Immature 0.060 H Granulocytes # Neutrophils # 7.0 Lymphocytes # 1.7 Monocytes # 0.4 Eosinophils # 0.1 Basophils # 0.0 Nucleated Red Blood 0.0 Cells # Sodium Level 133 L Potassium Level 3.8 Chloride Level 89 L Carbon Dioxide Level 35 H Anion Gap 9 Blood Urea Nitrogen 80 H Creatinine 1.63 H Est Glomerular Filtrat Rate mL/min Glucose Level 145 Calcium Level 7.8 L Bedside Glucose 165 164 Exam/Review of Systems Exam Vitals Vital Signs Date Temp Pulse Resp B/P (MAP) Pulse Ox O2 O2 Flow FiO2 Time Delivery Rate 05/05/18 64 21 96 30 09:25 05/05/18 98.6 115/52 07:28 (73) 05/04/18 Trach 19:28 Collar Intake and Output 05/04/18 05/04/18 05/05/18 1515:00 23:00 07:00 IntakeIntake Total 50 ml 1260 ml 320 ml OutputOutput Total 900 ml 400 ml BalanceBalance 50 ml 360 ml -80 ml Results Results 24hrs Laboratory Tests Test 05/04/18 11:33 05/04/18 16:50 05/04/18 21:01 05/04/18 23:54 Bedside Glucose 169 179 184 179 Test 05/05/18 05:42 05/05/18 05:58 05/05/18 08:23 White Blood Count 9.2 Red Blood Count 3.27 L Hemoglobin 10.2 L Hematocrit 32.3 L Mean Corpuscular 98.8 Volume Mean Corpuscular 31.2 Hemoglobin Mean Corpuscular 31.6 L Hemoglobin Concent Red Cell 18.5 H Distribution Width Platelet Count 302 Mean Platelet Volume 10.1 Immature 0.600 H Granulocytes % Neutrophils % 75.5 Lymphocytes % 18.8 Monocytes % 4.3 Eosinophils % 0.6 Basophils % 0.2 Nucleated Red Blood 0.0 Cells % Immature 0.060 H Granulocytes # Neutrophils # 7.0 Lymphocytes # 1.7 Monocytes # 0.4 Eosinophils # 0.1 Basophils # 0.0 Nucleated Red Blood 0.0 Cells # Sodium Level 133 L Potassium Level 3.8 Chloride Level 89 L Carbon Dioxide Level 35 H Anion Gap 9 Blood Urea Nitrogen 80 H Creatinine 1.63 H Est Glomerular Filtrat Rate mL/min Glucose Level 145 Calcium Level 7.8 L Bedside Glucose 165 164 Medications Medication Current Medications Miscellaneous Information (Pending Santyl Order For Wound Care) This patient monroy... PRN PRN XX WOUND CARE; Start 05/02/18 at 08:00 Miscellaneous Information 1 ea NOTE XX ; Start 05/02/18 at 08:30 Glucose (Glutose) 15 gm Q15M PRN PO DECREASED GLUCOSE; Start 05/02/18 at 08:30 Glucose (Glutose) 22.5 gm Q15M PRN PO DECREASED GLUCOSE; Start 05/02/18 at 08:30 Dextrose (D50w Syringe) 25 ml Q15M PRN IV DECREASED GLUCOSE; Start 05/02/18 at 08:30 Dextrose (D50w Syringe) 50 ml Q15M PRN IV DECREASED GLUCOSE; Start 05/02/18 at 08:30 Glucagon (Glucagen) 1 mg Q15M PRN IM DECREASED GLUCOSE; Start 05/02/18 at 08:30 Glucose (Glutose) 15 gm Q15M PRN BUCCAL DECREASED GLUCOSE; Start 05/02/18 at 08:30 Acetaminophen (Tylenol Tab) 650 mg Q4H PRN GTB MILD PAIN(1-3)OR ELEVATED TEMP; Start 05/02/18 at 08:30 Allopurinol (Zyloprim) 100 mg DAILY GTB Last administered on 05/05/18at 08:43; Admin Dose 100 MG; Start 05/02/18 at 09:00 Atorvastatin Calcium (Lipitor) 40 mg QHS GTB Last administered on 05/04/18at 2 1:03; Admin Dose 40 MG; Start 05/02/18 at 21:00 Bisacodyl (Dulcolax Supp) 10 mg Q48H PRN [place] CONSTIPATION; Start 05/02/18 at 08:30 Cholecalciferol (Vitamin D) 1,000 unit DAILY GTB Last administered on 05/05/18at 08:43; Admin Dose 1,000 UNIT; Start 05/02/18 at 09:00 Fenofibrate (Tricor) 48 mg DAILY GTB Last administered on 05/05/18at 08:43; Admin Dose 48 MG; Start 05/02/18 at 09:00 Folic Acid (Folic Acid) 1 mg DAILY GTB Last administered on 05/05/18at 08:43; Admin Dose 1 MG; Start 05/02/18 at 09:00 Albuterol/ Ipratropium (Duoneb) 3 ml Q6 PRN NEB SHORTNESS OF BREATH; Start 05/02/18 at 08:30 Lansoprazole (Prevacid) 30 mg BID GTB Last administered on 05/05/18at 08:44; Admin Dose 30 MG; Start 05/02/18 at 09:00 Levothyroxine Sodium (Synthroid) 175 mcg BEFORE BREAKFAST GTB Last administered on 05/05/18at 05:59; Admin Dose 175 MCG; Start 05/03/18 at 07:00 Linagliptin (Tradjenta) 5 mg DAILY GTB Last administered on 05/05/18 08:43; Admin Dose 5 MG; Start 05/02/18 at 09:00 Lorazepam (Ativan) 1 mg Q4H PRN GTB ANXIETY; Start 05/02/18 at 08:30 Magnesium Hydroxide (Milk Of Mag) 30 ml DAILY PRN GTB CONSTIPATION; Start 05/02/18 at 08:30 Midodrine (Proamatine) 5 mg TID GTB Last administered on 05/05/18 08:44; Admin Dose 5 MG; Start 05/02/18 at 09:00 Diagnostic Test (Pha) (Accu-Chek) 1 ea AC MEALS AND BEDTIME XX Last administered on 05/05/18at 08:24; Admin Dose 1 EA; Start 05/02/18 at 11:20 Collagenase (Santyl) 1 applic PRN PRN TOP NEEDED FOR " SOILED AREA(S); Start 05/02/18 at 13:00 Collagenase (Santyl) 1 applic BID TOP Last administered on 05/05/18 08:43; Admin Dose 1 APPLIC; Start 05/02/18 at 21:00 Insulin Aspart (Novolog Insulin Pen) (Adult SC Insulin - Mild Algorithm)... Q6 SC Last administered on 05/05/18at 06:02; Admin Dose 1 UNIT; Start 05/03/18 at 06:00 Alteplase, Recombinant (Cathflo (Activase)) 2 mg MAY REPEAT X1 PRN CATHETER IF CATHETER REMAINS OCCULUDED; Start 05/03/18 at 07:30 Insulin Glargine (Lantus) 16 units BID SC Last administered on 05/05/18 08:42; Admin Dose 16 UNITS; Start 05/03/18 at 10:00 Digoxin (Digoxin) 125 mcg DAILY@1300 IV Last administered on 05/04/18 14:27; Admin Dose 125 MCG; Start 05/04/18 at 14:00; Stop 05/05/18 at 13:59 Piperacillin Sod/ Tazobactam Sod 50 ml @ 100 mls/hr Q8 IVPB Last administered on 05/05/18 05:59; Admin Dose 100 MLS/HR; Start 05/04/18 at 14:00 SAMY PHILLIPS DO May 05, 2018 11:25
--- NOTE | 2018-05-05 12:32 | CONS ---
Assessment/Plan Assessment/Plan Hospital Course (Demo Recall) ID PROGRESS NOTE CURRENT ABX: DAY #3-> Zosyn s/p Cefepime 05/05/18 0542 05/05/18 0542 24H INTERVAL SUMMARY * Awake, alert, eyes tracking, non-verbal -- looks comfortable on the Vent, no fevers, NAD, PICC line RUEXT, FC DIAGNOSTIC IMAGING * 05/02/18 CXR: IMPRESSION: Interval increase in diffuse bilateral air space opacities, represent increasing edema versus pneumonia. Stable small right pleural effusion. MICRO/OTHER * 05/02/18 BCx (-) * 05/02/18 URINE CULTURE Final Organism 1 ENTEROCOCCUS SPECIES COLONY COUNT 50,000 - 60,000 CFU/ml ENT SPS M.I.C. RX --------- --- AMPICILLIN <=2 S CIPROFLOXACIN <=0.5 S LEVOFLOXACIN 0.5 S NITROFURANTOIN <=16 S PENICILLIN-G 2 S VANCOMYCIN 1 S PHYSICAL EXAMINATION: GENERAL: VSS HEENT: AT, NC, anicteric NECK: Supple, CHEST: Equal chest rise bilaterally, without dyspnea on observation HEART: Pulse RRR ABDOMEN: Soft / NT EXTREMITIES: Warm, dry / puffy hand edema SKIN: No rash, no diaphoresis ID ASSESSMENT 88 yo F admit with: 1. Sepsis present on admission = RESOLVING 2. Urinary tract infection 3. Acute tracheal bleed with acute anemia on admission status post 4 units of PRBC 4. Possible aspiration pneumonia 5. Diabetes 6. Dysphagia 7. Acute renal insufficiency on possible CKD (+)MRSA ABX ALLERGIES: KNDA INVASIVES: PIV CURRENT ABX: DAY # Zosyn ID RECOMMENDATIONS/PLAN: 1. Continue Zosyn -- renal adjust dose to 2.25mg Q8H per rising serum creatinine in 88 yo F * SHORT COURSE ZOSYN -- consider DC on Sunday Consultation Date/Type/Reason Admit Date/Time May 02, 2018 at 01:32 Initial Consult Date 05/02/18 Requesting Provider: JAMES GIRARD Date/Time of Note DATE: 05/05/18 TIME: 12:24 Exam/Review of Systems Exam Vitals Vital Signs Date Temp Pulse Resp B/P (MAP) Pulse Ox O2 O2 Flow FiO2 Time Delivery Rate 05/05/18 64 21 96 30 09:25 05/05/18 98.6 115/52 07:28 (73) 05/04/18 Trach 19:28 Collar Intake and Output 05/04/18 05/04/18 05/05/18 1515:00 23:00 07:00 IntakeIntake Total 50 ml 1260 ml 320 ml OutputOutput Total 900 ml 400 ml BalanceBalance 50 ml 360 ml -80 ml Results Result Diagram: 05/05/18 0542 05/05/18 0542 Results 24hrs Laboratory Tests Test 05/04/18 16:50 05/04/18 21:01 05/04/18 23:54 05/05/18 05:42 Bedside Glucose 179 184 179 White Blood Count 9.2 Red Blood Count 3.27 L Hemoglobin 10.2 L Hematocrit 32.3 L Mean Corpuscular 98.8 Volume Mean Corpuscular 31.2 Hemoglobin Mean Corpuscular 31.6 L Hemoglobin Concent Red Cell 18.5 H Distribution Width Platelet Count 302 Mean Platelet Volume 10.1 Immature 0.600 H Granulocytes % Neutrophils % 75.5 Lymphocytes % 18.8 Monocytes % 4.3 Eosinophils % 0.6 Basophils % 0.2 Nucleated Red Blood 0.0 Cells % Immature 0.060 H Granulocytes # Neutrophils # 7.0 Lymphocytes # 1.7 Monocytes # 0.4 Eosinophils # 0.1 Basophils # 0.0 Nucleated Red Blood 0.0 Cells # Sodium Level 133 L Potassium Level 3.8 Chloride Level 89 L Carbon Dioxide Level 35 H Anion Gap 9 Blood Urea Nitrogen 80 H Creatinine 1.63 H Est Glomerular Filtrat Rate mL/min Glucose Level 145 Calcium Level 7.8 L Test 05/05/18 05:58 05/05/18 08:23 05/05/18 12:02 Bedside Glucose 165 164 173 Medications Medication Current Medications M[facility] This patient monroy... PRN PRN XX WOUND CARE; Start 05/02/18 at 08:00 Miscellaneous Information 1 ea NOTE XX ; Start 05/02/18 at 08:30 Glucose (Glutose) 15 gm Q15M PRN PO DECREASED GLUCOSE; Start 05/02/18 at 08:30 Glucose (Glutose) 22.5 gm Q15M PRN PO DECREASED GLUCOSE; Start 05/02/18 at 08:30 Dextrose (D50w Syringe) 25 ml Q15M PRN IV DECREASED GLUCOSE; Start 05/02/18 at 08:30 Dextrose (D50w Syringe) 50 ml Q15M PRN IV DECREASED GLUCOSE; Start 05/02/18 at 08:30 Glucagon (Glucagen) 1 mg Q15M PRN IM DECREASED GLUCOSE; Start 05/02/18 at 08:30 Glucose (Glutose) 15 gm Q15M PRN BUCCAL DECREASED GLUCOSE; Start 05/02/18 at 08:30 Acetaminophen (Tylenol Tab) 650 mg Q4H PRN GTB MILD PAIN(1-3)OR ELEVATED TEMP; Start 05/02/18 at 08:30 Allopurinol (Zyloprim) 100 mg DAILY GTB Last administered on 05/05/18 08:43; Admin Dose 100 MG; Start 05/02/18 at 09:00 Atorvastatin Calcium (Lipitor) 40 mg QHS GTB Last administered on 05/04/18at 21:03; Admin Dose 40 MG; Start 05/02/18 at 21:00 Bisacodyl (Dulcolax Supp) 10 mg Q48H PRN [place] CONSTIPATION; Start 05/02/18 at 08:30 Cholecalciferol (Vitamin D) 1,000 unit DAILY GTB Last administered on 05/05/18 08:43; Admin Dose 1,000 UNIT; Start 05/02/18 at 09:00 Fenofibrate (Tricor) 48 mg DAILY GTB Last administered on 05/05/18 08:43; Admin Dose 48 MG; Start 05/02/18 at 09:00 Folic Acid (Folic Acid) 1 mg DAILY GTB Last administered on 05/05/18 08:43; Admin Dose 1 MG; Start 05/02/18 at 09:00 Albuterol/ Ipratropium (Duoneb) 3 ml Q6 PRN NEB SHORTNESS OF BREATH; Start 05/02/18 at 08:30 Lansoprazole (Prevacid) 30 mg BID GTB Last administered on 05/05/18 08:44; Admin Dose 30 MG; Start 05/02/18 at 09:00 Levothyroxine Sodium (Synthroid) 175 mcg BEFORE BREAKFAST GTB Last admin istered on 05/05/18 05:59; Admin Dose 175 MCG; Start 05/03/18 at 07:00 Linagliptin (Tradjenta) 5 mg DAILY GTB Last administered on 05/05/18 08:43; Admin Dose 5 MG; Start 05/02/18 at 09:00 Lorazepam (Ativan) 1 mg Q4H PRN GTB ANXIETY; Start 05/02/18 at 08:30 Magnesium Hydroxide (Milk Of Mag) 30 ml DAILY PRN GTB CONSTIPATION; Start 05/02/18 at 08:30 Midodrine (Proamatine) 5 mg TID GTB Last administered on 05/05/18at 12:03; Admin Dose 5 MG; Start 05/02/18 at 09:00 Diagnostic Test (Pha) (Accu-Chek) 1 ea AC MEALS AND BEDTIME XX Last administered on 05/05/18at 12:02; Admin Dose 1 EA; Start 05/02/18 at 11:20 Collagenase (Santyl) 1 applic PRN PRN TOP NEEDED FOR " SOILED AREA(S); Start 05/02/18 at 13:00 Collagenase (Santyl) 1 applic BID TOP Last administered on 05/05/18at 08:43; Admin Dose 1 APPLIC; Start 05/02/18 at 21:00 Insulin Aspart (Novolog Insulin Pen) (Adult SC Insulin - Mild Algorithm)... Q6 SC Last administered on 05/05/18at 12:10; Admin Dose 1 UNIT; Start 05/03/18 at 06:00 Alteplase, Recombinant (Cathflo (Activase)) 2 mg MAY REPEAT X1 PRN CATHETER IF CATHETER REMAINS OCCULUDED; Start 05/03/18 at 07:30 Insulin Glargine (Lantus) 16 units BID SC Last administered on 05/05/18at 08:42; Admin Dose 16 UNITS; Start 05/03/18 at 10:00 Digoxin (Digoxin) 125 mcg DAILY@1300 IV Last administered on 05/04/18at 14:27; Admin Dose 125 MCG; Start 05/04/18 at 14:00; Stop 05/05/18 at 13:59 Piperacillin Sod/ Tazobactam Sod 50 ml @ 100 mls/hr Q8 IVPB Last administered on 05/05/18 05:59; Admin Dose 100 MLS/HR; Start 05/04/18 at 14:00 Mupirocin (Bactroban) 1 applic BID TOP ; Start 05/05/18 at 11:30 RUSTY IRIZARRY NP May 05, 2018 12:32
[2018-05-05] MEDS: DIGOXIN 500 MCG INJ IV SCH (13:00)
--- NOTE | 2018-05-05 15:19 | CONS ---
Consult Date/Type/Reason Admit Date/Time May 02, 2018 at 01:32 Initial Consult Date 05/02/18 Type of Consultation: Pulm Requesting Provider: JAMES GIRARD Date/Time of Note DATE: 05/05/18 TIME: 15:17 Subjective No significant bleeding from trach noted overnight. Objective Vitals Vital Signs Date Temp Pulse Resp B/P (MAP) Pulse Ox O2 O2 Flow FiO2 Time Delivery Rate 05/05/18 61 17 100 30 13:08 05/05/18 97.9 113/44 12:00 (67) 05/04/18 Trach 19:28 Collar Intake and Output 05/04/18 05/04/18 05/05/18 1515:00 23:00 07:00 IntakeIntake Total 50 ml 1260 ml 320 ml OutputOutput Total 900 ml 400 ml BalanceBalance 50 ml 360 ml -80 ml Exam HEENT: Neck supple; no JVD; no LAD; trach site with minimal blood CVS: RRR, loud P2 and 2/6 systolic murmur CHEST: Bilateral rales ABD: Soft, NT, + BS EXT: No c/c; + edema Results/Medications Result Diagram: 05/05/18 0542 05/05/18 0542 Results 24 hrs Laboratory Tests Test 05/04/18 16:50 05/04/18 21:01 05/04/18 23:54 05/05/18 05:42 Bedside Glucose 179 184 179 White Blood Count 9.2 Red Blood Count 3.27 L Hemoglobin 10.2 L Hematocrit 32.3 L Mean Corpuscular 98.8 Volume Mean Corpuscular 31.2 Hemoglobin Mean Corpuscular 31.6 L Hemoglobin Concent Red Cell 18.5 H Distribution Width Platelet Count 302 Mean Platelet Volume 10.1 Immature 0.600 H Granulocytes % Neutrophils % 75.5 Lymphocytes % 18.8 Monocytes % 4.3 Eosinophils % 0.6 Basophils % 0.2 Nucleated Red Blood 0.0 Cells % Immature 0.060 H Granulocytes # Neutrophils # 7.0 Lymphocytes # 1.7 Monocytes # 0.4 Eosinophils # 0.1 Basophils # 0.0 Nucleated Red Blood 0.0 Cells # Sodium Level 133 L Potassium Level 3.8 Chloride Level 89 L Carbon Dioxide Level 35 H Anion Gap 9 Blood Urea Nitrogen 80 H Creatinine 1.63 H Est Glomerular Filtrat Rate mL/min Glucose Level 145 Calcium Level 7.8 L Test 05/05/18 05:58 05/05/18 08:23 05/05/18 12:02 Bedside Glucose 165 164 173 Home Meds Reported Medications Ipratropium-Albuterol (Ipratropium-Albuterol) 0.5-3 Mg/3 Ml Ampul.neb, 3 ML INHALATION Q6 PRN for SHORTNESS OF BREATH, #30 VIAL 05/02/18 Lorazepam* (Lorazepam*) 1 Mg Tablet, 1 MG G-TUBE Q4H PRN for ANXIETY, #30 TAB 05/02/18 Insulin Aspart* (Novolog Insulin Pen*) 100 Unit/Ml Soln, 0 SC .SLIDING SCALE AC, EA INJECT PER SLIDING SCALE;IF 0-149= 0 UNIT; 10-199= 3UNITS; 200-249= 4 UNITS; 250-299= 7UNITS; 300-349= 10UNITS; 350-399=12UNITS; MORE THAN 400 GIVE 12 UNITS, AND NOTIFY MD, SUBCUTANEOUSLY EVERY 6HOURS FOR DM 05/02/18 Acetaminophen* (Acetaminophen*) 325 Mg Tablet, 650 MG GTB Q4H PRN for PAIN AND OR ELEVATED TEMP, #30 TAB 05/02/18 Fenofibrate Nanocrystallized* (Fenofibrate*) 48 Mg Tablet, 48 MG GTB DAILY for HYPERLIPIDIMIA, TAB 05/02/18 Collagenase* (Santyl*) 30 Gm Oint..gm., 1 APPLIC TOP .SOILED PRN for SOILED for 21 Days, #1 TUB 05/02/18 Lansoprazole* (Lansoprazole*) 30 Mg Capsule.dr, 30 MG GTB BID for GERD, CAP 05/02/18 Clopidogrel Bisulfate* (Clopidogrel Bisulfate*) 75 Mg Tablet, 75 MG G-TUBE DAILY for DVT, #30 TAB 05/02/18 Chlorhexidine Gluconate* (Chlorhexidine Gluconate*) 118 Ml Liquid, 15 ML TOP BID, ML GIVE 15ML BY MOUTH TWO TIMES A DAY FOR MOUTH CARE SWAB AND SUCTION 05/02/18 Magnesium Hydroxide* (Milk Of Magnesia*) 400 Mg/5 Ml Oral.susp, 30 ML GTB DAILY PRN for CONSTIPATION, ML 05/02/18 Midodrine* (Midodrine*) 5 Mg Tablet, 5 MG GTB TID for hypotension, TAB hold for systolic BP above 130 05/02/18 Linagliptin (TRADJENTA) 5 Mg Tablet, 5 MG GTB DAILY, TAB 05/02/18 Levothyroxine Sodium* (Levothyroxine Sodium*) 175 Mcg Tablet, 175 MCG GTB BEFORE BREAKFAST for HYPOTHYROIDISM, #30 TAB 05/02/18 Insulin Glargine* (Lantus*) 100 Unit/Ml Soln, 12 UNIT SC BID, #1 VIAL 05/02/18 Folic Acid* (Folic Acid*) 1 Mg Tablet, 1 MG G-TUBE DAILY for SUPPLEMENT, TAB 05/02/18 Mineral Oil* (Fleet* Mineral Oil Enema) 133 Ml Oil, 133 ML CO NEEDED PRN for CONSTIPATION, ENEMA 05/02/18 Bisacodyl (Dulcolax) 10 Mg Supp.rect, 10 MG RC Q48H PRN for CONSTIPATION, SUPP.RECT 05/02/18 Cholecalciferol* (Vitamin D3*) 1,000 Unit Tablet, 1000 UNIT G-TUBE DAILY for SUPPLEMENT, TAB GIVE 5 TABLETS VIA GTUBE DAILY 05/02/18 Bumetanide* (Bumetanide*) 1 Mg Tablet, 1 MG G-TUBE DAILY for DIURETIC, TAB 05/02/18 Atorvastatin* (Atorvastatin*) 40 Mg Tablet, 40 MG G-TUBE QHS for HYPERLPIDIMIA, #30 TAB 05/02/18 Lorazepam* (Lorazepam*) 1 Mg Tablet, 1 MG GTB Q6 PRN for ANXIETY, #60 TAB 05/02/18 Aspirin Ec (Aspir 81) 81 Mg Tablet.dr, 81 MG G-TUBE DAILY, #30 TAB 05/02/18 Glycerin/Propylene Glycol (ARTIFICIAL TEARS DROPS) 30 Ml Drops, 30 ML OP PRN for DRY EYES, BOTTLE 05/02/18 Peg 400/Hypromellose/Glycerin (ARTIFICIAL TEARS DROPS) 15 Ml Drops, 2 DROP OP Q2H PRN for dry eyes, BOTTLE 05/02/18 Allopurinol* (Allopurinol*) 100 Mg Tablet, 100 MG GTB DAILY for GOUT, TAB 05/02/18 Medications Current Medications Miscellaneous Information (Pending [facility]) This patient monroy... PRN PRN XX WOUND CARE; Start 05/02/18 at 08:00 Miscellaneous Information 1 ea NOTE XX ; Start 05/02/18 at 08:30 Glucose (Glutose) 15 gm Q15M PRN PO DECREASED GLUCOSE; Start 05/02/18 at 08:30 Glucose (Glutose) 22.5 gm Q15M PRN PO DECREASED GLUCOSE; Start 05/02/18 at 08:30 Dextrose (D50w Syringe) 25 ml Q15M PRN IV DECREASED GLUCOSE; Start 05/02/18 at 08:30 Dextrose (D50w Syringe) 50 ml Q15M PRN IV DECREASED GLUCOSE; Start 05/02/18 at 08:30 Glucagon (Glucagen) 1 mg Q15M PRN IM DECREASED GLUCOSE; Start 05/02/18 at 08:30 Glucose (Glutose) 15 gm Q15M PRN BUCCAL DECREASED GLUCOSE; Start 05/02/18 at 08:30 Acetaminophen (Tylenol Tab) 650 mg Q4H PRN GTB MILD PAIN(1-3)OR ELEVATED TEMP; Start 05/02/18 at 08:30 Allopurinol (Zyloprim) 100 mg DAILY GTB Last administered on 05/05/18at 08:43; Admin Dose 100 MG; Start 05/02/18 at 09:00 Atorvastatin Calcium (Lipitor) 40 mg QHS GTB Last administered on 05/04/18at 21:03; Admin Dose 40 MG; Start 05/02/18 at 21:00 Bisacodyl (Dulcolax Supp) 10 mg Q48H PRN CO CONSTIPATION; Start 05/02/18 at 08:30 Cholecalciferol (Vitamin D) 1,000 unit DAILY GTB Last administered on 05/05/18at 08:43; Admin Dose 1,000 UNIT; Start 05/02/18 at 09:00 Fenofibrate (Tricor) 48 mg DAILY GTB Last administered on 05/05/18at 08:43; Admin Dose 48 MG; Start 05/02/18 at 09:00 Folic Acid (Folic Acid) 1 mg DAILY GTB Last administered on 05/05/18at 08:43; Admin Dose 1 MG; Start 05/02/18 at 09:00 Albuterol/ Ipratropium (Duoneb) 3 ml Q6 PRN NEB SHORTNESS OF BREATH; Start 05/02/18 at 08:30 Lansoprazole (Prevacid) 30 mg BID GTB Last administered on 3/17/19at 08:44; Admin Dose 30 MG; Start 05/02/18 at 09:00 Levothyroxine Sodium (Synthroid) 175 mcg BEFORE BREAKFAST GTB Last administered on 05/05/18 05:59; Admin Dose 175 MCG; Start 05/03/18 at 07:00 Linagliptin (Tradjenta) 5 mg DAILY GTB Last administered on 05/05/18 08:43; Admin Dose 5 MG; Start 05/02/18 at 09:00 Lorazepam (Ativan) 1 mg Q4H PRN GTB ANXIETY; Start 05/02/18 at 08:30 Magnesium Hydroxide (Milk Of Mag) 30 ml DAILY PRN GTB CONSTIPATION; Start 05/02/18 at 08:30 Midodrine (Proamatine) 5 mg TID GTB Last administered on 05/05/18 12:03; Admin Dose 5 MG; Start 05/02/18 at 09:00 Diagnostic Test (Pha) (Accu-Chek) 1 ea AC MEALS AND BEDTIME XX Last administered on 05/05/18 12:02; Admin Dose 1 EA; Start 05/02/18 at 11:20 Collagenase (Santyl) 1 applic PRN PRN TOP NEEDED FOR " SOILED AREA(S); Start 05/02/18 at 13:00 Collagenase (Santyl) 1 applic BID TOP Last administered on 05/05/18 08:43; Admin Dose 1 APPLIC; Start 05/02/18 at 21:00 Insulin Aspart (Novolog Insulin Pen) (Adult SC Insulin - Mild Algorithm)... Q6 SC Last administered on 05/05/18 12:10; Admin Dose 1 UNIT; Start 05/03/18 at 06:00 Alteplase, Recombinant (Cathflo (Activase)) 2 mg MAY REPEAT X1 PRN CATHETER IF CATHETER REMAINS OCCULUDED; Start 05/03/18 at 07:30 Insulin Glargine (Lantus) 16 units BID SC Last administered on 05/05/18 08:42; Admin Dose 16 UNITS; Start 05/03/18 at 10:00 Piperacillin Sod/ Tazobactam Sod 50 ml @ 100 mls/hr Q8 IVPB Last administered on 05/05/18 15:07; Admin Dose 100 MLS/HR; Start 3/16/19 at 14:00 Mupirocin (Bactroban) 1 applic BID TOP ; Start 05/05/18 at 11:30 Assessment/Plan Assessment/Plan (Daily) IMP: 1. Carotid bleeding into the trachea--improved. Would need a tertiary care facility for possible embolization. 2. Vent dependent respiratory failure. 3. Severe Pulm HTN 4. Pulm edema RECS: 1. Follow H/H closely 2. Vent support 3. Am labs 4. BD's/CPT JACK BURROUGHS MD May 05, 2018 15:19
[2018-05-05] MEDS: MUPIROCIN 2% 22 GM OINT TOP SCH ×2 (15:21→21:35)
[2018-05-05] MEDS: ATORVASTATIN 40 MG TAB GTB SCH (21:35)
[2018-05-06] VITALS (23 sets, daily range): BP systolic 103–124; BP diastolic 43–62; PULSE 60–66; RESP 14–23
[2018-05-06] MEDS: Insulin NOVOLOG SS MILD Algorithm (NPO/TPN/ENTERAL FEEDS) SC SCH ×4 (05:23→17:52)
[2018-05-06] MEDS: PIPER-TAZO 2.25 GM (PMX) 50 ML IVPB SCH ×3 (05:24→21:29)
[2018-05-06] MEDS: LEVOTHYROXINE 175 MCG TAB GTB SCH (05:24)
--- NOTE | 2018-05-06 09:03 | PN ---
DATE: 05/06/2018 SUBJECTIVE: The patient is stable, no further episodes of bleeding noted. No hemoptysis. No bleedi ng from tracheal site. OBJECTIVE: VITAL SIGNS: Blood pressure is 124/62, respirations 19, pulse 63, temperature 97.3. HEENT: Head is normocephalic. NECK: Supple. HEART: Regular rate. LUNGS: Show diminished breath sounds at the base. ABDOMEN: Soft, nontender to palpation without rebound or guarding. EXTREMITIES: Negative for clubbing, cyanosis, no edema. DERMATOLOGIC: No rashes. MUSCULOSKELETAL: No joint effusion. NEUROLOGIC: No change in exam. MEDICATIONS: Reviewed. LABORATORY DATA: Shows sodium 134, potassium 3.8, BUN 78, creatinine 1.62, phosphorus 2.8. White co unt 10.9, hemoglobin 10.3, platelet count is 325. ASSESSMENT AND PLAN: 1. Acute tracheal bleed. Etiology was felt to be secondary to possible distal branch of the left ex ternal carotid artery. The patient was seen by ENT and was evaluated by Interventional Radiology. T he patient is unable to have embolization of the head and neck at this facility. The patient attempt ed transfer to tertiary facility is pending. The patient was rejected from [facility]. We will attempt to transfer the patient to [facility]. However, the ENT division did not want to accept the pa tient and recommended to be transferred to Interventional Radiology. At this point, hemoglobin level s have been stable. No further episodes of tracheal bleeding. We will continue antiplatelet therapy . 2. Ventilator-dependent respiratory failure. Vent settings and ABG was reviewed. Continue to monit or. 3. Sepsis. Etiology is likely secondary to urinary tract infection. Continue current antibiotic re gimen. 4. Dysphagia status post PEG. Continue tube feeding. 5. Anemia. The patient is status post blood transfusion. Continue to monitor hemoglobin and hemato crit levels. 6. Questionable vaginal bleed. Etiology may be secondary to antiplatelets. No recurrent episodes n oted. 7. Hypernatremia secondary to acute kidney injury. The patient's sodium levels have been improving. Continue to hold water flushes. 8. Volume overload secondary to congestive heart failure. Continue current diuretic regimen. 9. Diabetes. Glucose levels are improved. Continue current insulin regimen. 10. Dyslipidemia. Continue statin therapy. 11. Coronary artery disease. Continue medical management. 12. Peripheral arterial disease. 13. Hypothyroidism. Continue Synthroid. 14. Lower extremity wounds. Continue wound care. 15. Gastrointestinal and deep vein thrombosis prophylaxis. Dictated By: ROLY MACKAY DO NR/NTS Conf#: [id number] DID#: [id number] CC: ALISON OLGUIN MD; SAMY PHILLIPS DO;*EndCC*
[2018-05-06] MEDS: ACCU-CHEK XX SCH ×4 (09:04→21:38)
[2018-05-06] MEDS: ALLOPURINOL 100 MG TAB GTB SCH (09:05)
[2018-05-06] MEDS: MIDODRINE 5 MG TAB GTB SCH ×3 (09:05→21:28)
[2018-05-06] MEDS: FOLIC ACID 1 MG TAB GTB SCH (09:05)
[2018-05-06] MEDS: LINAGLIPTIN 5 MG TABLET GTB SCH (09:05)
[2018-05-06] MEDS: LANSOPRAZOLE 30 MG CAP GTB SCH ×2 (09:05→21:28)
[2018-05-06] MEDS: CHOLECALCIFEROL 1,000 UNIT TAB GTB SCH (09:05)
[2018-05-06] MEDS: MUPIROCIN 2% 22 GM OINT TOP SCH ×2 (09:06→21:28)
[2018-05-06] MEDS: COLLAGENASE 5 GM (UD JAR) TOP SCH ×2 (09:06→21:28)
[2018-05-06] MEDS: INSULIN GLARGINE [LANTus] (100 UNITS/ML) SYG SC SCH ×2 (09:11→21:38)
[2018-05-06] MEDS: BUMETANIDE 1 MG INJ IV SCH (09:15)
--- NOTE | 2018-05-06 12:37 | CONS ---
Assessment/Plan Assessment/Plan Hospital Course (Demo Recall) No acute events overnight patient looks comfortable, no fevers WBC 10.9 platelets 325 neutrophils 74.6 BUN 78 creatinine 1.62 Blood cultures since admission negative urine culture grew enterococcus Antimicrobials: Zosyn, topical Bactroban Chest x-ray yesterday revealed decreased infiltrates throughout the left lung mild interval increase in patchy infiltrates throughout the right lung PHYSICAL EXAMINATION: GENERAL: This is a well-developed, chronically ill-appearing, obese, elderly woman who is awake and lying comfortably in bed. HEENT: Head atraumatic, normocephalic. Sclerae anicteric. Buccal mucosa dry. NECK: Supple. Tracheostomy present. CHEST: Rise symmetrical. Breath sounds clear, diminished to bases. HEART: S1, S2. ABDOMEN: Obese, soft. Bowel sounds present. EXTREMITIES: With trace edema. SKIN: The patient has a sacral decub and multiple ecchymotic areas on her upper extremities. Assessment: 1. Sepsis, present on admission 2. Urinary tract infection 3. Acute tracheal bleed with acute anemia on admission status post 4 units of PRBC 4. Healthcare associated pneumonia, possibly aspiration 5. Diabetes 6. Dysphagia 7. MRSA colonization Plan: Clinically stable, continue present care antibiotics Consultation Date/Type/Reason Admit Date/Time May 02, 2018 at 01:32 Initial Consult Date 05/02/18 Type of Consult id Requesting Provider: JAMES GIRARD Date/Time of Note DATE: 05/06/18 TIME: 12:36 Exam/Review of Systems Exam Vitals Vital Signs Date Temp Pulse Resp B/P (MAP) Pulse Ox O2 O2 Flow FiO2 Time Delivery Rate 05/06/18 97.3 64 19 103/47 99 11:56 (65) 05/06/18 30 10:27 05/04/18 Trach 19:28 Collar Intake and Output 05/05/18 05/05/18 05/06/18 1515:00 23:00 07:00 IntakeIntake Total 840 ml 690 ml OutputOutput Total 1000 ml 500 ml BalanceBalance -160 ml 190 ml Results Result Diagram: 05/06/1861805/06/18618 Results 24hrs Laboratory Tests Test 05/05/18 17:46 05/05/18 21:38 05/06/18 00:08 05/06/18 05:00 Bedside Glucose 131 120 130 Blood Gas Blood arterial Specimen Source Arterial Blood 05/06/2018 4:20:1 Date Drawn 7 AM Arterial Blood pH 7.523 H (Temp corrected) Arterial Blood 41.5 pCO2 (Temp correct) Arterial Blood 79.5 L pO2 (Temp corrected) Arterial Blood 33.4 H HCO3 Arterial Blood 9.7 H Base Excess Arterial Blood 96.3 Oxygen Saturation Vincent Test ACCEPTAB Arterial Blood Left Radial Gas Puncture Site Arterial 0.9 Blood Carboxyhemo globin Arterial Blood 0.3 Methemoglobin Blood Gas A-a O2 85.6 H Differential Oxyhemoglobin 95.1 Percent Blood Gas 37.0 Temperature Blood Gas 10.0 Respiration Rate Blood Gas Actual 22 Respiration Rate Blood Gas VENT - AC Modality FiO2 30.0 Blood Gas Tidal 450.0 Volume Blood Gas Low 5.0 PEEP Setting Blood Gas RTR Notified Whom Blood Gas 05/06/2018 4:35:0 Notified Time 5 AM Test 05/06/18 05:22 05/06/18 06:19 05/06/18 09:04 Bedside Glucose 133 121 White Blood Count 10.9 H Red Blood Count 3.39 L Hemoglobin 10.3 L Hematocrit 33.3 L Mean Corpuscular 98.2 Volume Mean Corpuscular 30.4 Hemoglobin Mean Corpuscular 30.9 L Hemoglobin Concen t Red Cell 18.7 H Distribution Width Platelet Count 325 Mean Platelet 9.9 Volume Immature 0.800 H Granulocytes % Neutrophils % 74.6 Lymphocytes % 19.7 Monocytes % 3.6 Eosinophils % 0.8 Basophils % 0.5 Nucleated Red 0.0 Blood Cells % Immature 0.090 H Granulocytes # Neutrophils # 8.1 H Lymphocytes # 2.2 Monocytes # 0.4 Eosinophils # 0.1 Basophils # 0.1 Nucleated Red 0.0 Blood Cells # Sodium Level 134 L Potassium Level 3.8 Chloride Level 90 L Carbon Dioxide 39 H Level Anion Gap 5 Blood Urea 78 H Nitrogen Creatinine 1.62 H Est Glomerular Filtrat Rate mL/min Glucose Level 104 # Calcium Level 7.9 L Phosphorus Level 3.5 Magnesium Level 2.8 H Digoxin Level 1.6 Medications Medication Current Medications Miscellaneous Information (Pending Santyl Order For Wound Care) This patient monroy... PRN PRN XX WOUND CARE; Start 05/02/18 at 08:00 Miscellaneous Information 1 ea NOTE XX ; Start 05/02/18 at 08:30 Glucose (Glutose) 15 gm Q15M PRN PO DECREASED GLUCOSE; Start 05/02/18 at 08:30 Glucose (Glutose) 22.5 gm Q15M PRN PO DECREASED GLUCOSE; Start 05/02/18 at 08:30 Dextrose (D50w Syringe) 25 ml Q15M PRN IV DECREASED GLUCOSE; Start 05/02/18 at 08:30 Dextrose (D50w Syringe) 50 ml Q15M PRN IV DECREASED GLUCOSE; Start 05/02/18 at 08:30 Glucagon (Glucagen) 1 mg Q15M PRN IM DECREASED GLUCOSE; Start 05/02/18 at 08:30 Glucose (Glutose) 15 gm Q15M PRN BUCCAL DECREASED GLUCOSE; Start 05/02/18 at 08:30 Acetaminophen (Tylenol Tab) 650 mg Q4H PRN GTB MILD PAIN(1-3)OR ELEVATED TEMP; Start 05/02/18 at 08:30 Allopurinol (Zyloprim) 100 mg DAILY GTB Last administered on 05/06/18at 09:05; Admin Dose 100 MG; Start 05/02/18 at 09:00 Atorvastatin Calcium (Lipitor) 40 mg QHS GTB Last administered on 05/05/18at 21:35; Admin Dose 40 MG; Start 05/02/18 at 21:00 Bisacodyl (Dulcolax Supp) 10 mg Q48H PRN OR CONSTIPATION; Start 05/02/18 at 08:30 Cholecalciferol (Vitamin D) 1,000 unit DAILY GTB Last administered on 05/06/18at 09:05; Admin Dose 1,000 UNIT; Start 05/02/18 at 09:00 Fenofibrate (Tricor) 48 mg DAILY GTB Last administered on 05/05/18at 08:43; Admin Dose 48 MG; Start 05/02/18 at 09:00 Folic Acid (Folic Acid) 1 mg DAILY GTB Last administered on 05/06/18at 09:05; Admin Dose 1 MG; Start 05/02/18 at 09:00 Albuterol/ Ipratropium (Duoneb) 3 ml Q6 PRN NEB SHORTNESS OF BREATH; Start 05/02/18 at 08:30 Lansoprazole (Prevacid) 30 mg BID GTB Last administered on 05/06/18at 09:05; Admin Dose 30 MG; Start 05/02/18 at 09:00 Levothyroxine Sodium (Synthroid) 175 mcg BEFORE BREAKFAST GTB Last administered on 05/06/18 05:24; Admin Dose 175 MCG; Start 05/03/18 at 07:00 Linagliptin (Tradjenta) 5 mg DAILY GTB Last administered on 05/06/18at 09:05; Admin Dose 5 MG; Start 05/02/18 at 09:00 Lorazepam (Ativan) 1 mg Q4H PRN GTB ANXIETY; Start 05/02/18 at 08:30 Magnesium Hydroxide (Milk Of Mag) 30 ml DAILY PRN GTB CONSTIPATION; Start 05/02/18 at 08:30 Midodrine (Proamatine) 5 mg TID GTB Last administered on 05/06/18at 09:05; Admin Dose 5 MG; Start 05/02/18 at 09:00 Diagnostic Test (Pha) (Accu-Chek) 1 ea AC MEALS AND BEDTIME XX Last administered on 05/06/18at 09:04; Admin Dose 1 EA; Start 05/02/18 at 11:20 Collagenase (Santyl) 1 applic PRN PRN TOP NEEDED FOR " SOILED AREA(S); Start 05/02/18 at 13:00 Collagenase (Santyl) 1 applic BID TOP Last administered on 05/06/18at 09:06; Admin Dose 1 APPLIC; Start 05/02/18 at 21:00 Insulin Aspart (Novolog Insulin Pen) (Adult SC Insulin - Mild Algorithm)... Q6 SC Last administered on 05/05/18 12:10; Admin Dose 1 UNIT; Start 05/03/18 at 06:00 Alteplase, Recombinant (Cathflo (Activase)) 2 mg MAY REPEAT X1 PRN CATHETER IF CATHETER REMAINS OCCULUDED; Start 05/03/18 at 07:30 Insulin Glargine (Lantus) 16 units BID SC Last administered on 05/06/18at 09:11; Admin Dose 16 UNITS; Start 05/03/18 at 10:00 Piperacillin Sod/ Tazobactam Sod 50 ml @ 100 mls/hr Q8 IVPB Last administered on 05/06/18 05:24; Admin Dose 100 MLS/HR; Start 05/04/18 at 14:00 Mupirocin (Bactroban) 1 applic BID TOP Last administered on 05/06/18at 09:06; Admin Dose 1 APPLIC; Start 05/05/18 at 11:30 Bumetanide (Bumex) 1 mg DAILY IV Last administered on 05/06/18at 09:15; Admin Dose 1 MG; Start 05/06/18 at 09:00 JESSICA TORRES NP May 06, 2018 12:36
[2018-05-06] MEDS: FENOFIBRATE 48 MG TAB GTB SCH (14:15)
--- NOTE | 2018-05-06 14:51 | CONS ---
Consult Date/Type/Reason Admit Date/Time May 02, 2018 at 01:32 Initial Consult Date 05/02/18 Type of Consult Pulmonary Requesting Provider: JAMES GIRARD Date/Time of Note DATE: 05/06/18 TIME: 14:50 Subjective Patient comfortable this morning no respiratory distress Objective Vital Signs Date Temp Pulse Resp B/P (MAP) Pulse Ox O2 O2 Flow FiO2 Time Delivery Rate 05/06/18 64 18 97 30 13:57 05/06/18 97.3 103/47 11:56 (65) 05/04/18 Trach 19:28 Collar Intake and Output 05/05/18 05/05/18 05/06/18 1515:00 23:00 07:00 IntakeIntake Total 840 ml 690 ml OutputOutput Total 1000 ml 500 ml BalanceBalance -160 ml 190 ml Exam GENERAL: Chronically ill-appearing lady on mechanical ventilation via tracheostomy VITAL SIGNS: per chart NECK: Supple. No JVD or lymphadenopathy. CARDIAC EXAM: S1, S2. No added sounds or murmurs. CHEST: clear bilaterally, No added sounds, rales or wheezes ABDOMEN: Soft, nontender. No guarding or rebound. EXTREMITIES: No cyanosis, clubbing or edema. NEUROLOGIC: Generalized weakness. No focal deficits. Vent Setting Ventilator Support Mode: AC Fraction of Inspired Oxygen pe: 30 Positive End Expiratory Pressu: 5.0 Results/Medications Result Diagram: 05/06/1861805/06/18618 Results 24 hrs Laboratory Tests Test 05/05/18 17:46 05/05/18 21:38 05/06/18 00:08 05/06/18 05:00 Bedside Glucose 131 120 130 Blood Gas Blood arterial Specimen Source Arterial Blood 05/06/2018 4:20: Date Drawn 17 AM Arterial Blood 7.523 H pH (Temp corrected) Arterial Blood 41.5 pCO2 (Temp correct) Arterial Blood 79.5 L pO2 (Temp corrected) Arterial Blood 33.4 H HCO3 Arterial Blood 9.7 H Base Excess Arterial Blood 96.3 Oxygen Saturatio n Vincent Test ACCEPTAB Arterial Blood Left Radial Gas Puncture Site Arterial 0.9 Blood Carboxyhem oglobin Arterial Blood 0.3 Methemoglobin Blood Gas A-a O2 85.6 H Differential Oxyhemoglobin 95.1 Percent Blood Gas 37.0 Temperature Blood Gas 10.0 Respiration Rate Blood Gas Actual 22 Respiration Rate Blood Gas VENT - AC Modality FiO2 30.0 Blood Gas Tidal 450.0 Volume Blood Gas Low 5.0 PEEP Setting Blood Gas RTR Notified Whom Blood Gas 05/06/2018 4:35: Notified Time 05 AM Test 05/06/18 05:22 05/06/18 06:19 05/06/18 09:04 05/06/18 12:50 Bedside Glucose 133 121 132 White Blood 10.9 H Count Red Blood Count 3.39 L Hemoglobin 10.3 L Hematocrit 33.3 L Mean Corpuscular 98.2 Volume Mean Corpuscular 30.4 Hemoglobin Mean Corpuscular 30.9 L Hemoglobin Ada nt Red Cell 18.7 H Distribution Width Platelet Count 325 Mean Platelet 9.9 Volume Immature 0.800 H Granulocytes % Neutrophils % 74.6 Lymphocytes % 19.7 Monocytes % 3.6 Eosinophils % 0.8 Basophils % 0.5 Nucleated Red 0.0 Blood Cells % Immature 0.090 H Granulocytes # Neutrophils # 8.1 H Lymphocytes # 2.2 Monocytes # 0.4 Eosinophils # 0.1 Basophils # 0.1 Nucleated Red 0.0 Blood Cells # Sodium Level 134 L Potassium Level 3.8 Chloride Level 90 L Carbon Dioxide 39 H Level Anion Gap 5 Blood Urea 78 H Nitrogen Creatinine 1.62 H Est Glomerular Filtrat Rate mL/min Glucose Level 104 # Calcium Level 7.9 L Phosphorus Level 3.5 Magnesium Level 2.8 H Digoxin Level 1.6 Test 05/06/18 14:04 Lab Scanned REFERENCE LAB Report Medications Current Medications Miscellaneous Information (Pending [facility] Order For Wound Care) This patient monroy... PRN PRN XX WOUND CARE; Start 05/02/18 at 08:00 Miscellaneous Information 1 ea NOTE XX ; Start 05/02/18 at 08:30 Glucose (Glutose) 15 gm Q15M PRN PO DECREASED GLUCOSE; Start 05/02/18 at 08:30 Glucose (Glutose) 22.5 gm Q15M PRN PO DECREASED GLUCOSE; Start 05/02/18 at 08:30 Dextrose (D50w Syringe) 25 ml Q15M PRN IV DECREASED GLUCOSE; Start 05/02/18 at 08:30 Dextrose (D50w Syringe) 50 ml Q15M PRN IV DECREASED GLUCOSE; Start 05/02/18 at 08:30 Glucagon (Glucagen) 1 mg Q15M PRN IM DECREASED GLUCOSE; Start 05/02/18 at 08:30 Glucose (Glutose) 15 gm Q15M PRN BUCCAL DECREASED GLUCOSE; Start 05/02/18 at 08:30 Acetaminophen (Tylenol Tab) 650 mg Q4H PRN GTB MILD PAIN(1-3)OR ELEVATED TEMP; Start 05/02/18 at 08:30 Allopurinol (Zyloprim) 100 mg DAILY GTB Last administered on 05/06/18 09:05; Admin Dose 100 MG; Start 05/02/18 at 09:00 Atorvastatin Calcium (Lipitor) 40 mg QHS GTB Last administered on 05/05/18at 21:35; Admin Dose 40 MG; Start 05/02/18 at 21:00 Bisacodyl (Dulcolax Supp) 10 mg Q48H PRN [place] CONSTIPATION; Start 05/02/18 at 08:30 Cholecalciferol (Vitamin D) 1,000 unit DAILY GTB Last administered on 05/06/18at 09:05; Admin Dose 1,000 UNIT; Start 05/02/18 at 09:00 Fenofibrate (Tricor) 48 mg DAILY GTB Last administered on 05/06/18 14:15; Admin Dose 48 MG; Start 05/02/18 at 09:00 Folic Acid (Folic Acid) 1 mg DAILY GTB Last administered on 05/06/18 09:05; Admin Dose 1 MG; Start 05/02/18 at 09:00 Albuterol/ Ipratropium (Duoneb) 3 ml Q6 PRN NEB SHORTNESS OF BREATH; Start 05/02/18 at 08:30 Lansoprazole (Prevacid) 30 mg BID GTB Last administered on 05/06/18at 09:05; Admin Dose 30 MG; Start 05/02/18 at 09:00 Levothyroxine Sodium (Synthroid) 175 mcg BEFORE BREAKFAST GTB Last administered on 05/06/18 05:24; Admin Dose 175 MCG; Start 05/03/18 at 07:00 Linagliptin (Tradjenta) 5 mg DAILY GTB Last administered on 05/06/18 09:05; Admin Dose 5 MG; Start 05/02/18 at 09:00 Lorazepam (Ativan) 1 mg Q4H PRN GTB ANXIETY; Start 05/02/18 at 08:30 Magnesium Hydroxide (Milk Of Mag) 30 ml DAILY PRN GTB CONSTIPATION; Start 05/02/18 at 08:30 Midodrine (Proamatine) 5 mg TID GTB Last administered on 05/06/18 13:58; Admin Dose 5 MG; Start 05/02/18 at 09:00 Diagnostic Test (Pha) (Accu-Chek) 1 ea AC MEALS AND BEDTIME XX Last administered on 05/06/18 12:51; Admin Dose 1 EA; Start 05/02/18 at 11:20 Collagenase (Santyl) 1 applic PRN PRN TOP NEEDED FOR " SOILED AREA(S); Start 05/02/18 at 13:00 Collagenase (Santyl) 1 applic BID TOP Last administered on 05/06/18 09:06; Admin Dose 1 APPLIC; Start 05/02/18 at 21:00 Insulin Aspart (Novolog Insulin Pen) (Adult SC Insulin - Mild Algorithm)... Q6 SC Last administered on 05/05/18 12:10; Admin Dose 1 UNIT; Start 05/03/18 at 06:00 Alteplase, Recombinant (Cathflo (Activase)) 2 mg MAY REPEAT X1 PRN CATHETER IF CATHETER REMAINS OCCULUDED; Start 05/03/18 at 07:30 Insulin Glargine (Lantus) 16 units BID SC Last administered on 05/06/18 09:11; Admin Dose 16 UNITS; Start 05/03/18 at 10:00 Piperacillin Sod/ Tazobactam Sod 50 ml @ 100 mls/hr Q8 IVPB Last administered on 05/06/18 13:58; Admin Dose 100 MLS/HR; Start 05/04/18 at 14:00 Mupirocin (Bactroban) 1 applic BID TOP Last administered on 05/06/18 09:06; Admin Dose 1 APPLIC; Start 05/05/18 at 11:30 Bumetanide (Bumex) 1 mg DAILY IV Last administered on 05/06/18 09:15; Admin Dose 1 MG; Start 05/06/18 at 09:00 Assessment/Plan Hospital Course (Demo Recall) IMP: 1. Carotid bleeding into the trachea--improved. Would need a tertiary care facility for possible embolization. 2. Vent dependent respiratory failure. 3. Severe Pulm HTN 4. Pulm edema RECS: 1. Follow H/H closely 2. Vent support 3. Am labs 4. BD's/CPT Consider DC planning PATRICE RENDON MD, [facility] May 06, 2018 14:51
--- NOTE | 2018-05-06 17:27 | CONS ---
Consult Date/Type/Reason Admit Date/Time May 02, 2018 at 01:32 Initial Consult Date 05/02/18 Type of Consultation: cv Requesting Provider: JAMES GIRARD Date/Time of Note DATE: 05/06/18 TIME: 17:26 Subjective Interventional cardiology follow-up progress note Subjective: Case discussed with the staff and telemetry was reviewed. Patient has remained in atrial /fibrillation. Heart rate is under good control. Patient remains status post trach on the vent No more tracheal bleeding Patient is nonverbal Objective: General: This female status post tracheostomy and vent HEENT: NC/AT. pupils are equal. round. NECK: Status post tracheostomy. No stridor. No active bleeding is noted CV: Irregularly irregular systolic murmur; no gallop or rubs. PULM: no wheezing. + rhonchi. GI: SOFT, NT, ND, no rebound or guarding Extremity: 2+ B/L LE edema. no clubbing. neuro: awake and opens her eyes. Psych: calm and pleasant rectal: deferred EKG was personally reviewed showed atrial fibrillation. Nonspecific ST-T wave abnormalities. Intervertebral conduction delay. Low voltage. CT of the neck shows: 1. This small blush of contrast noted in the deep soft tissues to the left of the tracheostomy site, representing the site of tracheostomy hemorrhage. I suspect this is arterial, arising from a distal branch of the left external carotid artery. 2. 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 3. Focal 50 - 69% stenosis origin right ICA. Objective Vitals Vital Signs Date Temp Pulse Resp B/P (MAP) Pulse Ox O2 O2 Flow FiO2 Time Delivery Rate 05/06/18 58 18 99 30 17:05 05/06/18 98.1 112/51 15:37 (71) 05/04/18 Trach 19:28 Collar Intake and Output 05/05/18 05/05/18 05/06/18 1515:00 23:00 07:00 IntakeIntake Total 840 ml 690 ml OutputOutput Total 1000 ml 500 ml BalanceBalance -160 ml 190 ml Results/Medications Result Diagram: 05/06/1861805/06/18618 Results 24 hrs Laboratory Tests Test 05/05/18 17:46 05/05/18 21:38 05/06/18 00:08 05/06/18 05:00 Bedside Glucose 131 120 130 Blood Gas Blood arterial Specimen Source Arterial Blood 05/06/2018 4:20: Date Drawn 17 AM Arterial Blood 7.523 H pH (Temp corrected) Arterial Blood 41.5 pCO2 (Temp correct) Arterial Blood 79.5 L pO2 (Temp corrected) Arterial Blood 33.4 H HCO3 Arterial Blood 9.7 H Base Excess Arterial Blood 96.3 Oxygen Saturatio n Vincent Test ACCEPTAB Arterial Blood Left Radial Gas Puncture Site Arterial 0.9 Blood Carboxyhem oglobin Arterial Blood 0.3 Methemoglobin Blood Gas A-a O2 85.6 H Differential Oxyhemoglobin 95.1 Percent Blood Gas 37.0 Temperature Blood Gas 10.0 Respiration Rate Blood Gas Actual 22 Respiration Rate Blood Gas VENT - AC Modality FiO2 30.0 Blood Gas Tidal 450.0 Volume Blood Gas Low 5.0 PEEP Setting Blood Gas RTR Notified Whom Blood Gas 05/06/2018 4:35: Notified Time 05 AM Test 05/06/18 05:22 05/06/18 06:19 05/06/18 09:04 05/06/18 12:50 Bedside Glucose 133 121 132 White Blood 10.9 H Count Red Blood Count 3.39 L Hemoglobin 10.3 L Hematocrit 33.3 L Mean Corpuscular 98.2 Volume Mean Corpuscular 30.4 Hemoglobin Mean Corpuscular 30.9 L Hemoglobin Ada nt Red Cell 18.7 H Distribution Width Platelet Count 325 Mean Platelet 9.9 Volume Immature 0.800 H Granulocytes % Neutrophils % 74.6 Lymphocytes % 19.7 Monocytes % 3.6 Eosinophils % 0.8 Basophils % 0.5 Nucleated Red 0.0 Blood Cells % Immature 0.090 H Granulocytes # Neutrophils # 8.1 H Lymphocytes # 2.2 Monocytes # 0.4 Eosinophils # 0.1 Basophils # 0.1 Nucleated Red 0.0 Blood Cells # Sodium Level 134 L Potassium Level 3.8 Chloride Level 90 L Carbon Dioxide 39 H Level Anion Gap 5 Blood Urea 78 H Nitrogen Creatinine 1.62 H Est Glomerular Filtrat Rate mL/min Glucose Level 104 # Calcium Level 7.9 L Phosphorus Level 3.5 Magnesium Level 2.8 H Digoxin Level 1.6 Test 05/06/18 14:04 Lab Scanned REFERENCE LAB Report Home Meds Reported Medications Ipratropium-Albuterol (Ipratropium-Albuterol) 0.5-3 Mg/3 Ml Ampul.neb, 3 ML INHALATION Q6 PRN for SHORTNESS OF BREATH, #30 VIAL 05/02/18 Lorazepam* (Lorazepam*) 1 Mg Tablet, 1 MG G-TUBE Q4H PRN for ANXIETY, #30 TAB 05/02/18 Insulin Aspart* (Novolog Insulin Pen*) 100 Unit/Ml Soln, 0 SC .SLIDING SCALE AC, EA INJECT PER SLIDING SCALE;IF 0-149= 0 UNIT; 10-199= 3UNITS; 200-249= 4 UNITS; 250-299= 7UNITS; 300-349= 10UNITS; 350-399=12UNITS; MORE THAN 400 GIVE 12 UNITS, AND NOTIFY MD, SUBCUTANEOUSLY EVERY 6HOURS FOR DM 05/02/18 Acetaminophen* (Acetaminophen*) 325 Mg Tablet, 650 MG GTB Q4H PRN for PAIN AND OR ELEVATED TEMP, #30 TAB 05/02/18 Fenofibrate Nanocrystallized* (Fenofibrate*) 48 Mg Tablet, 48 MG GTB DAILY for HYPERLIPIDIMIA, TAB 05/02/18 Collagenase* (Santyl*) 30 Gm Oint..gm., 1 APPLIC TOP .SOILED PRN for SOILED for 21 Days, #1 TUB 05/02/18 Lansoprazole* (Lansoprazole*) 30 Mg Capsule.dr, 30 MG GTB BID for GERD, CAP 05/02/18 Clopidogrel Bisulfate* (Clopidogrel Bisulfate*) 75 Mg Tablet, 75 MG G-TUBE DAILY for DVT, #30 TAB 05/02/18 Chlorhexidine Gluconate* (Chlorhexidine Gluconate*) 118 Ml Liquid, 15 ML TOP BID, ML GIVE 15ML BY MOUTH TWO TIMES A DAY FOR MOUTH CARE SWAB AND SUCTION 05/02/18 Magnesium Hydroxide* (Milk Of Magnesia*) 400 Mg/5 Ml Oral.susp, 30 ML GTB DAILY PRN for CONSTIPATION, ML 05/02/18 Midodrine* (Midodrine*) 5 Mg Tablet, 5 MG GTB TID for hypotension, TAB hold for systolic BP above 130 05/02/18 Linagliptin (TRADJENTA) 5 Mg Tablet, 5 MG GTB DAILY, TAB 05/02/18 Levothyroxine Sodium* (Levothyroxine Sodium*) 175 Mcg Tablet, 175 MCG GTB BEFORE BREAKFAST for HYPOTHYROIDISM, #30 TAB 05/02/18 Insulin Glargine* (Lantus*) 100 Unit/Ml Soln, 12 UNIT SC BID, #1 VIAL 05/02/18 Folic Acid* (Folic Acid*) 1 Mg Tablet, 1 MG G-TUBE DAILY for SUPPLEMENT, TAB 05/02/18 Mineral Oil* (Fleet* Mineral Oil Enema) 133 Ml Oil, 133 ML [place] NEEDED PRN for CONSTIPATION, ENEMA 05/02/18 Bisacodyl (Dulcolax) 10 Mg Supp.rect, 10 MG RC Q48H PRN for CONSTIPATION, SUPP.RECT 05/02/18 Cholecalciferol* (Vitamin D3*) 1,000 Unit Tablet, 1000 UNIT G-TUBE DAILY for SUPPLEMENT, TAB GIVE 5 TABLETS VIA GTUBE DAILY 05/02/18 Bumetanide* (Bumetanide*) 1 Mg Tablet, 1 MG G-TUBE DAILY for DIURETIC, TAB 05/02/18 Atorvastatin* (Atorvastatin*) 40 Mg Tablet, 40 MG G-TUBE QHS for HYPERLPIDIMIA, #30 TAB 05/02/18 Lorazepam* (Lorazepam*) 1 Mg Tablet, 1 MG GTB Q6 PRN for ANXIETY, #60 TAB 05/02/18 Aspirin Ec (Aspir 81) 81 Mg Tablet.dr, 81 MG G-TUBE DAILY, #30 TAB 05/02/18 Glycerin/Propylene Glycol (ARTIFICIAL TEARS DROPS) 30 Ml Drops, 30 ML OP PRN for DRY EYES, BOTTLE 05/02/18 Peg 400/Hypromellose/Glycerin (ARTIFICIAL TEARS DROPS) 15 Ml Drops, 2 DROP OP Q2H PRN for dry eyes, BOTTLE 05/02/18 Allopurinol* (Allopurinol*) 100 Mg Tablet, 100 MG GTB DAILY for GOUT, TAB 05/02/18 Medications Current Medications Miscellaneous Information (Pending [facility] Order For Wound Care) This patient monroy... PRN PRN XX WOUND CARE; Start 05/02/18 at 08:00 Miscellaneous Information 1 ea NOTE XX ; Start 05/02/18 at 08:30 Glucose (Glutose) 15 gm Q15M PRN PO DECREASED GLUCOSE; Start 05/02/18 at 08:30 Glucose (Glutose) 22.5 gm Q15M PRN PO DECREASED GLUCOSE; Start 05/02/18 at 08:30 Dextrose (D50w Syringe) 25 ml Q15M PRN IV DECREASED GLUCOSE; Start 05/02/18 at 08:30 Dextrose (D50w Syringe) 50 ml Q15M PRN IV DECREASED GLUCOSE; Start 05/02/18 at 08:30 Glucagon (Glucagen) 1 mg Q15M PRN IM DECREASED GLUCOSE; Start 05/02/18 at 08:30 Glucose (Glutose) 15 gm Q15M PRN BUCCAL DECREASED GLUCOSE; Start 05/02/18 at 08:30 Acetaminophen (Tylenol Tab) 650 mg Q4H PRN GTB MILD PAIN(1-3)OR ELEVATED TEMP; Start 05/02/18 at 08:30 Allopurinol (Zyloprim) 100 mg DAILY GTB Last administered on 05/06/18at 09:05; Admin Dose 100 MG; Start 05/02/18 at 09:00 Atorvastatin Calcium (Lipitor) 40 mg QHS GTB Last administered on 05/05/18at 21:35; Admin Dose 40 MG; Start 05/02/18 at 21:00 Bisacodyl (Dulcolax Supp) 10 mg Q48H PRN [place] CONSTIPATION; Start 05/02/18 at 08:30 Cholecalciferol (Vitamin D) 1,000 unit DAILY GTB Last administered on 05/06/18at 09:05; Admin Dose 1,000 UNIT; Start 05/02/18 at 09:00 Fenofibrate (Tricor) 48 mg DAILY GTB Last administered on 05/06/18at 14:15; Admin Dose 48 MG; Start 05/02/18 at 09:00 Folic Acid (Folic Acid) 1 mg DAILY GTB Last administered on 05/06/18at 09:05; Admin Dose 1 MG; Start 05/02/18 at 09:00 Albuterol/ Ipratropium (Duoneb) 3 ml Q6 PRN NEB SHORTNESS OF BREATH; Start 05/02/18 at 08:30 Lansoprazole (Prevacid) 30 mg BID GTB Last administered on 05/06/18at 09:05; Admin Dose 30 MG; Start 05/02/18 at 09:00 Levothyroxine Sodium (Synthroid) 175 mcg BEFORE BREAKFAST GTB Last administered on 05/06/18at 05:24; Admin Dose 175 MCG; Start 05/03/18 at 07:00 Linagliptin (Tradjenta) 5 mg DAILY GTB Last administered on 05/06/18 09:05; Admin Dose 5 MG; Start 05/02/18 at 09:00 Lorazepam (Ativan) 1 mg Q4H PRN GTB ANXIETY; Start 05/02/18 at 08:30 Magnesium Hydroxide (Milk Of Mag) 30 ml DAILY PRN GTB CONSTIPATION; Start 05/02/18 at 08:30 Midodrine (Proamatine) 5 mg TID GTB Last administered on 05/06/18 13:58; Admin Dose 5 MG; Start 05/02/18 at 09:00 Diagnostic Test (Pha) (Accu-Chek) 1 ea AC MEALS AND BEDTIME XX Last administered on 05/06/18 12:51; Admin Dose 1 EA; Start 05/02/18 at 11:20 Collagenase (Santyl) 1 applic PRN PRN TOP NEEDED FOR " SOILED AREA(S); Start 05/02/18 at 13:00 Collagenase (Santyl) 1 applic BID TOP Last administered on 05/06/18 09:06; Admin Dose 1 APPLIC; Start 05/02/18 at 21:00 Insulin Aspart (Novolog Insulin Pen) (Adult SC Insulin - Mild Algorithm)... Q6 SC Last administered on 05/05/18 12:10; Admin Dose 1 UNIT; Start 05/03/18 at 06:00 Alteplase, Recombinant (Cathflo (Activase)) 2 mg MAY REPEAT X1 PRN CATHETER IF CATHETER REMAINS OCCULUDED; Start 05/03/18 at 07:30 Insulin Glargine (Lantus) 16 units BID SC Last administered on 05/06/18 09:11; Admin Dose 16 UNITS; Start 05/03/18 at 10:00 Piperacillin Sod/ Tazobactam Sod 50 ml @ 100 mls/hr Q8 IVPB Last administered on 05/06/18 13:58; Admin Dose 100 MLS/HR; Start 05/04/18 at 14:00 Mupirocin (Bactroban) 1 applic BID TOP Last administered on 05/06/18 09:06; Admin Dose 1 APPLIC; Start 05/05/18 at 11:30 Bumetanide (Bumex) 1 mg DAILY IV Last administered on 3/18/19at 09:15; Admin Dose 1 MG; Start 05/06/18 at 09:00 Assessment/Plan Hospital Course (Demo Recall) Atrial fibrillation/flutter with rapid ventricular response: Currently heart rate is under control. Probably new secondary to respiratory distress and hypoxemia Tracheal bleeding possibly arterial: Currently has improved Hypoxemic respiratory failure with tracheostomy Coronary arteries are going bypass graft History of hypertension Peripheral vascular disease Diabetes Dysphagia status post PEG placement Chronic congestive heart failure/anasarca Severe anemia Recommendations: Patient off of any anticoagulation or aspirin due to active bleeding Bleeding workup as per ENT and internal medicine team Diabetic control with insulin as per internal medicine Statin will be continued as well Transfusion as needed. Currently H&H remained stable Continue to monitor on telemetry Thank you for his referral will continue to monitor with you YVON WATTERS MD [facility] YVON WATTERS MD May 06, 2018 17:27
[2018-05-06] MEDS: ATORVASTATIN 40 MG TAB GTB SCH (21:28)
[2018-05-07] VITALS (23 sets, daily range): BP systolic 109–119; BP diastolic 45–52; PULSE 57–66; RESP 12–26
[2018-05-07] MEDS: Insulin NOVOLOG SS MILD Algorithm (NPO/TPN/ENTERAL FEEDS) SC SCH ×4 (06:00→16:57)
[2018-05-07] MEDS: LEVOTHYROXINE 175 MCG TAB GTB SCH (06:17)
[2018-05-07] MEDS: PIPER-TAZO 2.25 GM (PMX) 50 ML IVPB SCH ×3 (06:17→21:45)
[2018-05-07] MEDS: ACCU-CHEK XX SCH ×4 (07:25→21:00)
--- NOTE | 2018-05-07 09:22 | PN ---
DATE: 05/07/2018 SUBJECTIVE: The patient is stable, no episodes of bleeding. OBJECTIVE: VITAL SIGNS: Blood pressure is 116/46, respirations 20, pulse 60, temperature 97.9. HEENT: Head is normocephalic. NECK: Supple. HEART: Regular rate. LUNGS: Show diminished breath sounds at the base. ABDOMEN: Soft, nontender to palpation without rebound or guarding. EXTREMITIES: Negative for clubbing, cyanosis. Positive edema. DERMATOLOGIC: No rashes. MUSCULOSKELETAL: No joint effusion. NEUROLOGIC: No change in exam. MEDICATIONS: Reviewed. LABORATORY DATA: White count 11.8, hemoglobin 10.6, platelet count 345. The patient's chemistry is pending. ASSESSMENT AND PLAN: 1. Acute tracheal bleed. Etiology was felt to be possibly due to a distal branch of the left coil connector repairer al carotid artery. The patient was seen by ENT and recommended IR intervention. The patient is unab le to have embolization of the head and neck at this facility. An attempt to transfer was made to [facility], which was rejected. Transfer was attempted to go to [facility] under ENT Service; [facility] did not wish to accept the patient and recommended patient to be transferred to Interventional Radiology at [facility]. At this point, attempting transfer to [facility] under IR care. No further episodes of bleeding. We will continue to monitor, holding antiplatelet therapy. 2. Ventilator-dependent respiratory failure. Vent settings and ABG was reviewed. Continue to monit or. 3. Sepsis secondary to urinary tract infection. Continue current antibiotic regimen. 4. Dysphagia status post PEG. Continue tube feeding. 5. Anemia, status post blood transfusion. Monitor hemoglobin and hematocrit levels. 6. Hypernatremia, improving. Continue to hold free water flushes. 7. Volume overload secondary to congestive heart failure. Continue diuretic therapy. 8. Diabetes. Continue current insulin regimen. 9. Dyslipidemia. Continue statin therapy. 10. Coronary artery disease. Continue medical management. 11. Peripheral arterial disease. 12. Hypothyroidism. Continue Synthroid. 13. Lower extremity wounds. Continue wound care. 14. Gastrointestinal and deep vein thrombosis prophylaxis. Dictated By: ROLY MACKAY DO NR/NTS Conf#: [id number] DID#: [id number] CC: SAMY PHILLIPS DO; ALISON OLGUIN MD;*EndCC*
[2018-05-07] MEDS: COLLAGENASE 5 GM (UD JAR) TOP SCH ×2 (09:24→21:44)
[2018-05-07] MEDS: FOLIC ACID 1 MG TAB GTB SCH (09:24)
[2018-05-07] MEDS: ALLOPURINOL 100 MG TAB GTB SCH (09:24)
[2018-05-07] MEDS: LINAGLIPTIN 5 MG TABLET GTB SCH (09:25)
[2018-05-07] MEDS: MIDODRINE 5 MG TAB GTB SCH ×3 (09:25→21:43)
[2018-05-07] MEDS: CHOLECALCIFEROL 1,000 UNIT TAB GTB SCH (09:26)
[2018-05-07] MEDS: LANSOPRAZOLE 30 MG CAP GTB SCH ×2 (09:26→21:44)
[2018-05-07] MEDS: BUMETANIDE 1 MG INJ IV SCH (09:26)
[2018-05-07] MEDS: FENOFIBRATE 48 MG TAB GTB SCH (09:26)
[2018-05-07] MEDS: MUPIROCIN 2% 22 GM OINT TOP SCH ×2 (09:27→21:45)
[2018-05-07] MEDS: INSULIN GLARGINE [LANTus] (100 UNITS/ML) SYG SC SCH ×2 (09:48→22:00)
--- NOTE | 2018-05-07 11:25 | CONS ---
Assessment/Plan Assessment/Plan Assessment/Plan (Daily) Ventilator setting; AC of 10, tidal volume 450, PEEP of 5, 30% FiO2. Assessment and recommendations; 1. Patient admitted for carotid bleed with clinical improvement. No further bleeding noted. 2. CHF. With persistent pulmonary edema. 3. VDR F. 4. Pulmonary hypertension. 5. History of diabetes, gout, hypothyroidism. 6. Enterococcus UTI. 7. Chronic renal insufficiency. 8. Anemia. 9. History of sternotomy and CABG. Continue current supportive care. Add Lasix 40 mg IV daily. Consultation Date/Type/Reason Admit Date/Time May 02, 2018 at 01:32 Initial Consult Date 05/02/18 Type of Consult Pulmonary Patient's condition is stable. Remains awake and alert. Has remained hemodynamically stable. Reason for Consultation General exam; elderly female, currently in no distress. On ventilator via tracheostomy. H EENT exam; supple neck, positive JVD. No lymphadenopathy. Midline trachea. No thyromegaly. Tracheostomy in place. Patient is edentulous. Chest exam; diminished breath sounds bilaterally. S1-S2 audible, no murmurs. Regular rhythm. Abdomen exam; soft, no organomegaly. G-tube in place. Bowel sounds audible. Extremity exam; no peripheral edema. [employer] exam; no focal motor deficit. Patient however exhibiting generalized weakness. Requesting Provider: JAMES GIRARD Date/Time of Note DATE: 05/07/18 TIME: 11:23 Exam/Review of Systems Exam Vitals Vital Signs Date Temp Pulse Resp B/P (MAP) Pulse Ox O2 O2 Flow FiO2 Time Delivery Rate 05/07/18 67 20 100 30 11:03 05/07/18 97.9 116/47 07:42 (70) 05/07/18 Mechanical 04:39 Ventilator Intake and Output 05/06/18 05/06/18 05/07/18 1515:00 23:00 07:00 IntakeIntake Total 740 ml 740 ml OutputOutput Total 900 ml 700 ml BalanceBalance -160 ml 40 ml Results Result Diagram: 05/07/18 0808 05/07/18 0808 Results 24hrs Laboratory Tests Test 05/06/18 12:50 05/06/18 14:04 05/06/18 17:51 05/06/18 21:31 Bedside Glucose 132 106 107 Lab Scanned Report REFERENCE LAB Test 05/07/18 00:37 05/07/18 06:15 05/07/18 08:08 05/07/18 09:08 Bedside Glucose 100 72 72 White Blood Count 11.8 H Red Blood Count 3.45 L Hemoglobin 10.6 L Hematocrit 34.0 L Mean Corpuscular 98.6 Volume Mean Corpuscular 30.7 Hemoglobin Mean Corpuscular 31.2 L Hemoglobin Concent Red Cell 18.5 H Distribution Width Platelet Count 345 Mean Platelet 9.4 Volume Immature 0.500 H Granulocytes % Neutrophils % 75.7 Lymphocytes % 18.6 Monocytes % 4.1 Eosinophils % 0.8 Basophils % 0.3 Nucleated Red 0.0 Blood Cells % Immature 0.060 H Granulocytes # Neutrophils # 8.9 H Lymphocytes # 2.2 Monocytes # 0.5 Eosinophils # 0.1 Basophils # 0.0 Nucleated Red 0.0 Blood Cells # Sodium Level 136 Potassium Level 3.6 Chloride Level 89 L Carbon Dioxide 37 H Level Anion Gap 10 # Blood Urea 74 H Nitrogen Creatinine 1.47 H Est Glomerular Filtrat Rate mL/min Glucose Level 54 #L Calcium Level 7.9 L Phosphorus Level 3.4 Magnesium Level 2.7 H Medications Medication Current Medications Miscellaneous Information (Pending Santyl Order For Wound Care) This patient monroy... PRN PRN XX WOUND CARE; Start 05/02/18 at 08:00 Miscellaneous Information 1 ea NOTE XX ; Start 05/02/18 at 08:30 Glucose (Glutose) 15 gm Q15M PRN PO DECREASED GLUCOSE; Start 05/02/18 at 08:30 Glucose (Glutose) 22.5 gm Q15M PRN PO DECREASED GLUCOSE; Start 05/02/18 at 08:30 Dextrose (D50w Syringe) 25 ml Q15M PRN IV DECREASED GLUCOSE; Start 05/02/18 at 08:30 Dextrose (D50w Syringe) 50 ml Q15M PRN IV DECREASED GLUCOSE; Start 05/02/18 at 08:30 Glucagon (Glucagen) 1 mg Q15M PRN IM DECREASED GLUCOSE; Start 05/02/18 at 08:30 Glucose (Glutose) 15 gm Q15M PRN BUCCAL DECREASED GLUCOSE; Start 05/02/18 at 08:30 Acetaminophen (Tylenol Tab) 650 mg Q4H PRN GTB MILD PAIN(1-3)OR ELEVATED TEMP; Start 05/02/18 at 08:30 Allopurinol (Zyloprim) 100 mg DAILY GTB Last administered on 05/07/18 09:24; Admin Dose 100 MG; Start 05/02/18 at 09:00 Atorvastatin Calcium (Lipitor) 40 mg QHS GTB Last administered on 05/06/18 21:28; Admin Dose 40 MG; Start 05/02/18 at 21:00 Bisacodyl (Dulcolax Supp) 10 mg Q48H PRN [place] CONSTIPATION; Start 05/02/18 at 08:30 Cholecalciferol (Vitamin D) 1,000 unit DAILY GTB Last administered on 05/07/18 09:26; Admin Dose 1,000 UNIT; Start 05/02/18 at 09:00 Fenofibrate (Tricor) 48 mg DAILY GTB Last administered on 05/07/18 09:26; Admin Dose 48 MG; Start 05/02/18 at 09:00 Folic Acid (Folic Acid) 1 mg DAILY GTB Last administered on 05/07/18 09:24; Admin Dose 1 MG; Start 05/02/18 at 09:00 Albuterol/ Ipratropium (Duoneb) 3 ml Q6 PRN NEB SHORTNESS OF BREATH Last administered on 05/07/18 03:09; Admin Dose 3 ML; Start 05/02/18 at 08:30 Lansoprazole (Prevacid) 30 mg BID GTB Last administered on 05/07/18 09:26; Admin Dose 30 MG; Start 05/02/18 at 09:00 Levothyroxine Sodium (Synthroid) 175 mcg BEFORE BREAKFAST GTB Last administered on 05/07/18 06:17; Admin Dose 175 MCG; Start 05/03/18 at 07:00 Linagliptin (Tradjenta) 5 mg DAILY GTB Last administered on 05/07/18 09:25; Admin Dose 5 MG; Start 05/02/18 at 09:00 Lorazepam (Ativan) 1 mg Q4H PRN GTB ANXIETY; Start 05/02/18 at 08:30 Magnesium Hydroxide (Milk Of Mag) 30 ml DAILY PRN GTB CONSTIPATION; Start 05/02/18 at 08:30 Midodrine (Proamatine) 5 mg TID GTB Last administered on 05/07/18 09:25; Admin Dose 5 MG; Start 05/02/18 at 09:00 Diagnostic Test (Pha) (Accu-Chek) 1 ea AC MEALS AND BEDTIME XX Last administered on 05/07/18 07:25; Admin Dose 1 EA; Start 05/02/18 at 11:20 Collagenase (Santyl) 1 applic PRN PRN TOP NEEDED FOR " SOILED AREA(S); Start 05/02/18 at 13:00 Collagenase (Santyl) 1 applic BID TOP Last administered on 05/07/18 09:24; Admin Dose 1 APPLIC; Start 05/02/18 at 21:00 Insulin Aspart (Novolog Insulin Pen) (Adult SC Insulin - Mild Algorithm)... Q6 SC Last administered on 05/05/18 12:10; Admin Dose 1 UNIT; Start 05/03/18 at 06:00 Alteplase, Recombinant (Cathflo (Activase)) 2 mg MAY REPEAT X1 PRN CATHETER IF CATHETER REMAINS OCCULUDED; Start 05/03/18 at 07:30 Insulin Glargine (Lantus) 16 units BID SC Last administered on 05/07/18 09:48; Admin Dose 16 UNITS; Start 05/03/18 at 10:00 Piperacillin Sod/ Tazobactam Sod 50 ml @ 100 mls/hr Q8 IVPB Last administered on 05/07/18 06:17; Admin Dose 100 MLS/HR; Start 05/04/18 at 14:00 Mupirocin (Bactroban) 1 applic BID TOP Last administered on 05/07/18 09:27; Admin Dose 1 APPLIC; Start 05/05/18 at 11:30 Bumetanide (Bumex) 1 mg DAILY IV Last administered on 05/07/18 09:26; Admin Dose 1 MG; Start 05/06/18 at 09:00 YOSSI MONTOYA 19, 2019 11:25
[2018-05-07] MEDS: FUROSEMIDE 40 MG INJ IV SCH (12:01)
--- NOTE | 2018-05-07 12:48 | CONS ---
Consult Date/Type/Reason Admit Date/Time May 02, 2018 at 01:32 Initial Consult Date 05/02/18 Type of Consultation: cv Requesting Provider: JAMES GIRARD Date/Time of Note DATE: 05/07/18 TIME: 12:47 Subjective Interventional cardiology follow-up progress note Subjective: Case discussed with the staff and telemetry was reviewed. Patient has remained in atrial /fibrillation. Heart rate is under good control NOW. Patient remains status post trach on the vent No more tracheal bleeding Patient is nonverbal Objective: General: This female status post tracheostomy and vent HEENT: NC/AT. pupils are equal. round. NECK: Status post tracheostomy. No stridor. No active bleeding is noted CV: Irregularly irregular systolic murmur; no gallop or rubs. PULM: no wheezing. + rhonchi. GI: SOFT, NT, ND, no rebound or guarding Extremity:+ B/L LE edema. no clubbing. neuro: awake and opens her eyes. Psych: calm and pleasant rectal: deferred EKG was personally reviewed showed atrial fibrillation. Nonspecific ST-T wave abnormalities. Intervertebral conduction delay. Low voltage. CT of the neck shows: 1. This small blush of contrast noted in the deep soft tissues to the left of the tracheostomy site, representing the site of tracheostomy hemorrhage. I suspect this is arterial, arising from a distal branch of the left external carotid artery. 2. 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 3. Focal 50 - 69% stenosis origin right ICA. Objective Vitals Vital Signs Date Temp Pulse Resp B/P (MAP) Pulse Ox O2 O2 Flow FiO2 Time Delivery Rate 05/07/18 57 12:14 05/07/18 97.6 20 114/45 100 11:41 (68) 05/07/18 30 11:03 05/07/18 Mechanical 04:39 Ventilator Intake and Output 05/06/18 05/06/18 05/07/18 1515:00 23:00 07:00 IntakeIntake Total 740 ml 740 ml OutputOutput Total 900 ml 700 ml BalanceBalance -160 ml 40 ml Results/Medications Result Diagram: 05/07/18 0808 05/07/18 0808 Results 24 hrs Laboratory Tests Test 05/06/18 12:50 05/06/18 14:04 05/06/18 17:51 05/06/18 21:31 Bedside Glucose 132 106 107 Lab Scanned Report REFERENCE LAB Test 05/07/18 00:37 05/07/18 06:15 05/07/18 08:08 05/07/18 09:08 Bedside Glucose 100 72 72 White Blood Count 11.8 H Red Blood Count 3.45 L Hemoglobin 10.6 L Hematocrit 34.0 L Mean Corpuscular 98.6 Volume Mean Corpuscular 30.7 Hemoglobin Mean Corpuscular 31.2 L Hemoglobin Concent Red Cell 18.5 H Distribution Width Platelet Count 345 Mean Platelet 9.4 Volume Immature 0.500 H Granulocytes % Neutrophils % 75.7 Lymphocytes % 18.6 Monocytes % 4.1 Eosinophils % 0.8 Basophils % 0.3 Nucleated Red 0.0 Blood Cells % Immature 0.060 H Granulocytes # Neutrophils # 8.9 H Lymphocytes # 2.2 Monocytes # 0.5 Eosinophils # 0.1 Basophils # 0.0 Nucleated Red 0.0 Blood Cells # Sodium Level 136 Potassium Level 3.6 Chloride Level 89 L Carbon Dioxide 37 H Level Anion Gap 10 # Blood Urea 74 H Nitrogen Creatinine 1.47 H Est Glomerular Filtrat Rate mL/min Glucose Level 54 #L Calcium Level 7.9 L Phosphorus Level 3.4 Magnesium Level 2.7 H Test 05/07/18 11:54 05/07/18 11:55 05/07/18 12:21 05/07/18 12:34 Bedside Glucose 70 68 L 176 152 Home Meds Reported Medications Ipratropium-Albuterol (Ipratropium-Albuterol) 0.5-3 Mg/3 Ml Ampul.neb, 3 ML INHALATION Q6 PRN for SHORTNESS OF BREATH, #30 VIAL 05/02/18 Lorazepam* (Lorazepam*) 1 Mg Tablet, 1 MG G-TUBE Q4H PRN for ANXIETY, #30 TAB 05/02/18 Insulin Aspart* (Novolog Insulin Pen*) 100 Unit/Ml Soln, 0 SC .SLIDING SCALE AC, EA INJECT PER SLIDING SCALE;IF 0-149= 0 UNIT; 10-199= 3UNITS; 200-249= 4 UNITS; 250-299= 7UNITS; 300-349= 10UNITS; 350-399=12UNITS; MORE THAN 400 GIVE 12 UNITS, AND NOTIFY , SUBCUTANEOUSLY EVERY 6HOURS FOR DM 05/02/18 Acetaminophen* (Acetaminophen*) 325 Mg Tablet, 650 MG GTB Q4H PRN for PAIN AND OR ELEVATED TEMP, #30 TAB 05/02/18 Fenofibrate Nanocrystallized* (Fenofibrate*) 48 Mg Tablet, 48 MG GTB DAILY for HYPERLIPIDIMIA, TAB 05/02/18 Collagenase* (Santyl*) 30 Gm Oint..gm., 1 APPLIC TOP .SOILED PRN for SOILED for 21 Days, #1 TUB 05/02/18 Lansoprazole* (Lansoprazole*) 30 Mg Capsule.dr, 30 MG GTB BID for GERD, CAP 05/02/18 Clopidogrel Bisulfate* (Clopidogrel Bisulfate*) 75 Mg Tablet, 75 MG G-TUBE DAILY for DVT, #30 TAB 05/02/18 Chlorhexidine Gluconate* (Chlorhexidine Gluconate*) 118 Ml Liquid, 15 ML TOP BID, ML GIVE 15ML BY MOUTH TWO TIMES A DAY FOR MOUTH CARE SWAB AND SUCTION 05/02/18 Magnesium Hydroxide* (Milk Of Magnesia*) 400 Mg/5 Ml Oral.susp, 30 ML GTB DAILY PRN for CONSTIPATION, ML 05/02/18 Midodrine* (Midodrine*) 5 Mg Tablet, 5 MG GTB TID for hypotension, TAB hold for systolic BP above 130 05/02/18 Linagliptin (TRADJENTA) 5 Mg Tablet, 5 MG GTB DAILY, TAB 05/02/18 Levothyroxine Sodium* (Levothyroxine Sodium*) 175 Mcg Tablet, 175 MCG GTB BEFORE BREAKFAST for HYPOTHYROIDISM, #30 TAB 05/02/18 Insulin Glargine* (Lantus*) 100 Unit/Ml Soln, 12 UNIT SC BID, #1 VIAL 05/02/18 Folic Acid* (Folic Acid*) 1 Mg Tablet, 1 MG G-TUBE DAILY for SUPPLEMENT, TAB 05/02/18 Mineral Oil* (Fleet* Mineral Oil Enema) 133 Ml Oil, 133 ML ID NEEDED PRN for CONSTIPATION, ENEMA 05/02/18 Bisacodyl (Dulcolax) 10 Mg Supp.rect, 10 MG RC Q48H PRN for CONSTIPATION, SUPP.RECT 05/02/18 Cholecalciferol* (Vitamin D3*) 1,000 Unit Tablet, 1000 UNIT G-TUBE DAILY for SUPPLEMENT, TAB GIVE 5 TABLETS VIA GTUBE DAILY 05/02/18 Bumetanide* (Bumetanide*) 1 Mg Tablet, 1 MG G-TUBE DAILY for DIURETIC, TAB 05/02/18 Atorvastatin* (Atorvastatin*) 40 Mg Tablet, 40 MG G-TUBE QHS for HYPERLPIDIMIA, #30 TAB 05/02/18 Lorazepam* (Lorazepam*) 1 Mg Tablet, 1 MG GTB Q6 PRN for ANXIETY, #60 TAB 05/02/18 Aspirin Ec (Aspir 81) 81 Mg Tablet.dr, 81 MG G-TUBE DAILY, #30 TAB 05/02/18 Glycerin/Propylene Glycol (ARTIFICIAL TEARS DROPS) 30 Ml Drops, 30 ML OP PRN for DRY EYES, BOTTLE 05/02/18 Peg 400/Hypromellose/Glycerin (ARTIFICIAL TEARS DROPS) 15 Ml Drops, 2 DROP OP Q2H PRN for dry eyes, BOTTLE 05/02/18 Allopurinol* (Allopurinol*) 100 Mg Tablet, 100 MG GTB DAILY for GOUT, TAB 05/02/18 Medications Current Medications Miscellaneous Information (Pending [facility] Order For Wound Care) This patient monroy... PRN PRN XX WOUND CARE; Start 05/02/18 at 08:00 Miscellaneous Information 1 ea NOTE XX ; Start 05/02/18 at 08:30 Glucose (Glutose) 15 gm Q15M PRN PO DECREASED GLUCOSE; Start 05/02/18 at 08:30 Glucose (Glutose) 22.5 gm Q15M PRN PO DECREASED GLUCOSE; Start 05/02/18 at 08:30 Dextrose (D50w Syringe) 25 ml Q15M PRN IV DECREASED GLUCOSE Last administered on 05/07/18at 12:00; Admin Dose 25 ML; Start 05/02/18 at 08:30 Dextrose (D50w Syringe) 50 ml Q15M PRN IV DECREASED GLUCOSE; Start 05/02/18 at 08:30 Glucagon (Glucagen) 1 mg Q15M PRN IM DECREASED GLUCOSE; Start 05/02/18 at 08:30 Glucose (Glutose) 15 gm Q15M PRN BUCCAL DECREASED GLUCOSE; Start 05/02/18 at 08:30 Acetaminophen (Tylenol Tab) 650 mg Q4H PRN GTB MILD PAIN(1-3)OR ELEVATED TEMP; Start 05/02/18 at 08:30 Allopurinol (Zyloprim) 100 mg DAILY GTB Last administered on 05/07/18 09:24; Admin Dose 100 MG; Start 05/02/18 at 09:00 Atorvastatin Calcium (Lipitor) 40 mg QHS GTB Last administered on 05/06/18 21:28; Admin Dose 40 MG; Start 05/02/18 at 21:00 Bisacodyl (Dulcolax Supp) 10 mg Q48H PRN [place] CONSTIPATION; Start 05/02/18 at 08:30 Cholecalciferol (Vitamin D) 1,000 unit DAILY GTB Last administered on 05/07/18 09:26; Admin Dose 1,000 UNIT; Start 05/02/18 at 09:00 Fenofibrate (Tricor) 48 mg DAILY GTB Last administered on 05/07/18 09:26; Admin Dose 48 MG; Start 05/02/18 at 09:00 Folic Acid (Folic Acid) 1 mg DAILY GTB Last administered on 05/07/18 09:24; Admin Dose 1 MG; Start 05/02/18 at 09:00 Albuterol/ Ipratropium (Duoneb) 3 ml Q6 PRN NEB SHORTNESS OF BREATH Last administered on 05/07/18 03:09; Admin Dose 3 ML; Start 05/02/18 at 08:30 Lansoprazole (Prevacid) 30 mg BID GTB Last administered on 05/07/18 09:26; Admin Dose 30 MG; Start 05/02/18 at 09:00 Levothyroxine Sodium (Synthroid) 175 mcg BEFORE BREAKFAST GTB Last a dministered on 05/07/18 06:17; Admin Dose 175 MCG; Start 05/03/18 at 07:00 Linagliptin (Tradjenta) 5 mg DAILY GTB Last administered on 05/07/18 09:25; Admin Dose 5 MG; Start 05/02/18 at 09:00 Lorazepam (Ativan) 1 mg Q4H PRN GTB ANXIETY; Start 05/02/18 at 08:30 Magnesium Hydroxide (Milk Of Mag) 30 ml DAILY PRN GTB CONSTIPATION; Start 05/02/18 at 08:30 Midodrine (Proamatine) 5 mg TID GTB Last administered on 05/07/18 12:01; Admin Dose 5 MG; Start 05/02/18 at 09:00 Diagnostic Test (Pha) (Accu-Chek) 1 ea AC MEALS AND BEDTIME XX Last administered on 05/07/18 12:00; Admin Dose 1 EA; Start 05/02/18 at 11:20 Collagenase (Santyl) 1 applic PRN PRN TOP NEEDED FOR " SOILED AREA(S); Start 05/02/18 at 13:00 Collagenase (Santyl) 1 applic BID TOP Last administered on 05/07/18 09:24; Admin Dose 1 APPLIC; Start 05/02/18 at 21:00 Insulin Aspart (Novolog Insulin Pen) (Adult SC Insulin - Mild Algorithm)... Q6 SC Last administered on 05/05/18 12:10; Admin Dose 1 UNIT; Start 05/03/18 at 06:00 Alteplase, Recombinant (Cathflo (Activase)) 2 mg MAY REPEAT X1 PRN CATHETER IF CATHETER REMAINS OCCULUDED; Start 05/03/18 at 07:30 Piperacillin Sod/ Tazobactam Sod 50 ml @ 100 mls/hr Q8 IVPB Last administered on 05/07/18 06:17; Admin Dose 100 MLS/HR; Start 05/04/18 at 14:00 Mupirocin (Bactroban) 1 applic BID TOP Last administered on 05/07/18 09:27; Admin Dose 1 APPLIC; Start 05/05/18 at 11:30 Bumetanide (Bumex) 1 mg DAILY IV Last administered on 05/07/18 09:26; Admin Dose 1 MG; Start 05/06/18 at 09:00 Furosemide (Lasix) 40 mg DAILY IV Last administered on 05/07/18 12:01; Admin Dose 40 MG; Start 05/07/18 at 11:30 Insulin Glargine (Lantus) 10 units BID SC ; Start 05/07/18 at 21:00; Status UNV Assessment/Plan Hospital Course (Demo Recall) Atrial fibrillation/flutter with rapid ventricular response: Currently heart rate is under control. 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 Awaiting IR procedure Statin will be continued as well Transfusion as needed. Currently H&H remained stable Continue to monitor on telemetry Thank you for his referral will continue to monitor with you YVON WATTERS MD [facility] YVON WATTERS MD May 07, 2018 12:48
--- NOTE | 2018-05-07 14:54 | CONS ---
Assessment/Plan Assessment/Plan Hospital Course (Demo Recall) No acute events patient is awake looks comfortable no fevers overnight Blood cultures since admission negative urine culture grew enterococcus Antimicrobials: Zosyn, topical Bactroban PHYSICAL EXAMINATION: GENERAL: This is a well-developed, chronically ill-appearing, obese, elderly woman who is awake and lying comfortably in bed. HEENT: Head atraumatic, normocephalic. Sclerae anicteric. Buccal mucosa dry. NECK: Supple. Tracheostomy present. CHEST: Rise symmetrical. Breath sounds clear, diminished to bases. HEART: S1, S2. ABDOMEN: Obese, soft. Bowel sounds present. EXTREMITIES: With trace edema. SKIN: The patient has a sacral decub and multiple ecchymotic areas on her upper extremities. Assessment: 1. S/p sepsis, present on admission 2. Urinary tract infection 3. Acute tracheal bleed with acute anemia on admission status post 4 units of PRBC 4. Healthcare associated pneumonia, possibly aspiration 5. Diabetes 6. Dysphagia 7. MRSA colonization Plan: Clinically stable, continue present care and antibiotics Consultation Date/Type/Reason Admit Date/Time May 02, 2018 at 01:32 Initial Consult Date 05/02/18 Type of Consult id Requesting Provider: JAMES GIRARD Date/Time of Note DATE: 05/07/18 TIME: 14:53 Exam/Review of Systems Exam Vitals Vital Signs Date Temp Pulse Resp B/P (MAP) Pulse Ox O2 O2 Flow FiO2 Time Delivery Rate 05/07/18 63 20 99 30 13:09 05/07/18 97.6 114/45 11:41 (68) 05/07/18 Mechanical 04:39 Ventilator Intake and Output 05/06/18 05/06/18 05/07/18 1515:00 23:00 07:00 IntakeIntake Total 740 ml 740 ml OutputOutput Total 900 ml 700 ml BalanceBalance -160 ml 40 ml Results Result Diagram: 05/07/18 0808 05/07/18 0808 Results 24hrs Laboratory Tests Test 05/06/18 17:51 05/06/18 21:31 05/07/18 00:37 05/07/18 06:15 Bedside Glucose 106 107 100 72 Test 05/07/18 08:08 05/07/18 09:08 05/07/18 11:54 05/07/18 11:55 White Blood Count 11.8 H Red Blood Count 3.45 L Hemoglobin 10.6 L Hematocrit 34.0 L Mean Corpuscular 98.6 Volume Mean Corpuscular 30.7 Hemoglobin Mean Corpuscular 31.2 L Hemoglobin Concent Red Cell 18.5 H Distribution Width Platelet Count 345 Mean Platelet Volume 9.4 Immature 0.500 H Granulocytes % Neutrophils % 75.7 Lymphocytes % 18.6 Monocytes % 4.1 Eosinophils % 0.8 Basophils % 0.3 Nucleated Red Blood 0.0 Cells % Immature 0.060 H Granulocytes # Neutrophils # 8.9 H Lymphocytes # 2.2 Monocytes # 0.5 Eosinophils # 0.1 Basophils # 0.0 Nucleated Red Blood 0.0 Cells # Sodium Level 136 Potassium Level 3.6 Chloride Level 89 L Carbon Dioxide Level 37 H Anion Gap 10 # Blood Urea Nitrogen 74 H Creatinine 1.47 H Est Glomerular Filtrat Rate mL/min Glucose Level 54 #L Calcium Level 7.9 L Phosphorus Level 3.4 Magnesium Level 2.7 H Bedside Glucose 72 70 68 L Test 05/07/18 12:21 05/07/18 12:34 Bedside Glucose 176 152 Medications Medication Current Medications Miscellaneous Information [facility] This patient monroy... PRN PRN XX WOUND CARE; Start 05/02/18 at 08:00 Miscellaneous Information 1 ea NOTE XX ; Start 05/02/18 at 08:30 Glucose (Glutose) 15 gm Q15M PRN PO DECREASED GLUCOSE; Start 05/02/18 at 08:30 Glucose (Glutose) 22.5 gm Q15M PRN PO DECREASED GLUCOSE; Start 05/02/18 at 08:30 Dextrose (D50w Syringe) 25 ml Q15M PRN IV DECREASED GLUCOSE Last administered on 05/07/18at 12:00; Admin Dose 25 ML; Start 05/02/18 at 08:30 Dextrose (D50w Syringe) 50 ml Q15M PRN IV DECREASED GLUCOSE; Start 05/02/18 at 08:30 Glucagon (Glucagen) 1 mg Q15M PRN IM DECREASED GLUCOSE; Start 05/02/18 at 08:30 Glucose (Glutose) 15 gm Q15M PRN BUCCAL DECREASED GLUCOSE; Start 05/02/18 at 08:30 Acetaminophen (Tylenol Tab) 650 mg Q4H PRN GTB MILD PAIN(1-3)OR ELEVATED TEMP; Start 05/02/18 at 08:30 Allopurinol (Zyloprim) 100 mg DAILY GTB Last administered on 05/07/18 09:24; Admin Dose 100 MG; Start 05/02/18 at 09:00 Atorvastatin Calcium (Lipitor) 40 mg QHS GTB Last administered on 05/06/18 21:28; Admin Dose 40 MG; Start 05/02/18 at 21:00 Bisacodyl (Dulcolax Supp) 10 mg Q48H PRN SC CONSTIPATION; Start 05/02/18 at 08:30 Cholecalciferol (Vitamin D) 1,000 unit DAILY GTB Last administered on 05/07/18 09:26; Admin Dose 1,000 UNIT; Start 05/02/18 at 09:00 Fenofibrate (Tricor) 48 mg DAILY GTB Last administered on 05/07/18 09:26; Admin Dose 48 MG; Start 05/02/18 at 09:00 Folic Acid (Folic Acid) 1 mg DAILY GTB Last administered on 05/07/18 09:24; Admin Dose 1 MG; Start 05/02/18 at 09:00 Albuterol/ Ipratropium (Duoneb) 3 ml Q6 PRN NEB SHORTNESS OF BREATH Last administered on 05/07/18 03:09; Admin Dose 3 ML; Start 05/02/18 at 08:30 Lansoprazole (Prevacid) 30 mg BID GTB Last administered on 05/07/18 09:26; Admin Dose 30 MG; Start 05/02/18 at 09:00 Levothyroxine Sodium (Synthroid) 175 mcg BEFORE BREAKFAST GTB Last administered on 05/07/18 06:17; Admin Dose 175 MCG; Start 05/03/18 at 07:00 Linagliptin (Tradjenta) 5 mg DAILY GTB Last administered on 05/07/18 09:25; Admin Dose 5 MG; Start 05/02/18 at 09:00 Lorazepam (Ativan) 1 mg Q4H PRN GTB ANXIETY; Start 05/02/18 at 08:30 Magnesium Hydroxide (Milk Of Mag) 30 ml DAILY PRN GTB CONSTIPATION; Start 05/02/18 at 08:30 Midodrine (Proamatine) 5 mg TID GTB Last administered on 05/07/18 12:01; Admin Dose 5 MG; Start 05/02/18 at 09:00 Diagnostic Test (Pha) (Accu-Chek) 1 ea AC MEALS AND BEDTIME XX Last admi nistered on 05/07/18 12:00; Admin Dose 1 EA; Start 05/02/18 at 11:20 Collagenase (Santyl) 1 applic PRN PRN TOP NEEDED FOR " SOILED AREA(S); Start 05/02/18 at 13:00 Collagenase (Santyl) 1 applic BID TOP Last administered on 05/07/18 09:24; Admin Dose 1 APPLIC; Start 05/02/18 at 21:00 Insulin Aspart (Novolog Insulin Pen) (Adult SC Insulin - Mild Algorithm)... Q6 SC Last administered on 05/05/18 12:10; Admin Dose 1 UNIT; Start 05/03/18 at 06:00 Alteplase, Recombinant (Cathflo (Activase)) 2 mg MAY REPEAT X1 PRN CATHETER IF CATHETER REMAINS OCCULUDED; Start 05/03/18 at 07:30 Piperacillin Sod/ Tazobactam Sod 50 ml @ 100 mls/hr Q8 IVPB Last administered on 05/07/18 14:34; Admin Dose 100 MLS/HR; Start 05/04/18 at 14:00 Mupirocin (Bactroban) 1 applic BID TOP Last administered on 05/07/18 09:27; Admin Dose 1 APPLIC; Start 05/05/18 at 11:30 Bumetanide (Bumex) 1 mg DAILY IV Last administered on 05/07/18 09:26; Admin Dose 1 MG; Start 05/06/18 at 09:00 Furosemide (Lasix) 40 mg DAILY IV Last administered on 05/07/18 12:01; Admin Dose 40 MG; Start 05/07/18 at 11:30 Insulin Glargine (Lantus) 10 units BID SC ; Start 05/07/18 at 21:00 JESSICA TORRES NP May 07, 2018 14:54
[2018-05-07] MEDS: ATORVASTATIN 40 MG TAB GTB SCH (21:44)
[2018-05-08] VITALS (23 sets, daily range): BP systolic 110–121; BP diastolic 44–61; PULSE 62–98; RESP 17–22
[2018-05-08] MEDS: Insulin NOVOLOG SS MILD Algorithm (NPO/TPN/ENTERAL FEEDS) SC SCH ×4 (06:00→16:29)
[2018-05-08] MEDS: PIPER-TAZO 2.25 GM (PMX) 50 ML IVPB SCH ×3 (06:12→21:17)
[2018-05-08] MEDS: LEVOTHYROXINE 175 MCG TAB GTB SCH (06:12)
[2018-05-08] MEDS: ACCU-CHEK XX SCH ×4 (07:29→21:18)
[2018-05-08] MEDS: INSULIN GLARGINE [LANTus] (100 UNITS/ML) SYG SC SCH ×2 (07:31→21:13)
[2018-05-08] MEDS: FOLIC ACID 1 MG TAB GTB SCH (08:09)
[2018-05-08] MEDS: COLLAGENASE 5 GM (UD JAR) TOP SCH ×2 (08:09→21:02)
[2018-05-08] MEDS: ALLOPURINOL 100 MG TAB GTB SCH (08:09)
[2018-05-08] MEDS: CHOLECALCIFEROL 1,000 UNIT TAB GTB SCH (08:09)
[2018-05-08] MEDS: LANSOPRAZOLE 30 MG CAP GTB SCH ×2 (08:09→21:02)
[2018-05-08] MEDS: MUPIROCIN 2% 22 GM OINT TOP SCH ×2 (08:10→21:02)
[2018-05-08] MEDS: LINAGLIPTIN 5 MG TABLET GTB SCH (08:10)
[2018-05-08] MEDS: MIDODRINE 5 MG TAB GTB SCH ×3 (08:10→21:02)
[2018-05-08] MEDS: FUROSEMIDE 40 MG INJ IV SCH (08:10)
[2018-05-08] MEDS: FENOFIBRATE 48 MG TAB GTB SCH (08:10)
[2018-05-08] MEDS: BUMETANIDE 1 MG INJ IV SCH (08:10)
--- NOTE | 2018-05-08 08:32 | CONS ---
Consult Date/Type/Reason Admit Date/Time May 02, 2018 at 01:32 Initial Consult Date 05/02/18 Type of Consultation: cv Requesting Provider: JAMES GIRARD Date/Time of Note DATE: 05/08/18 TIME: 08:31 Subjective Interventional cardiology follow-up progress note Subjective: Case discussed with the staff and telemetry was reviewed. Patient has remained in atrial /fibrillation. Heart rate is under good control . Patient remains status post trach on the vent No more tracheal bleeding Patient is nonverbal Objective: General: This female status post tracheostomy and vent HEENT: NC/AT. pupils are equal. round. NECK: Status post tracheostomy. No stridor. No active bleeding is noted CV: Irregularly irregular systolic murmur; no gallop or rubs. PULM: no wheezing. + rhonchi. GI: SOFT, NT, ND, no rebound or guarding Extremity:+ B/L LE edema. no clubbing. neuro: awake and opens her eyes. Psych: calm and pleasant rectal: deferred EKG was personally reviewed showed atrial fibrillation. Nonspecific ST-T wave abnormalities. Intervertebral conduction delay. Low voltage. CT of the neck shows: 1. This small blush of contrast noted in the deep soft tissues to the left of the tracheostomy site, representing the site of tracheostomy hemorrhage. I suspect this is arterial, arising from a distal branch of the left external carotid artery. 2. 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 3. Focal 50 - 69% stenosis origin right ICA. Objective Vitals Vital Signs Date Temp Pulse Resp B/P (MAP) Pulse Ox O2 O2 Flow FiO2 Time Delivery Rate 05/08/18 98.3 66 20 117/47 98 07:35 (70) 05/08/18 30 05:05 05/08/18 Mechanical 04:00 Ventilator Intake and Output 05/07/18 05/07/18 05/08/18 1515:00 23:00 07:00 IntakeIntake Total 940 ml 865 ml OutputOutput Total 1750 ml 800 ml BalanceBalance -810 ml 65 ml Results/Medications Result Diagram: 05/07/18 0808 05/07/18 0808 Results 24 hrs Laboratory Tests Test 05/07/18 09:08 05/07/18 11:54 05/07/18 11:55 05/07/18 12:21 Bedside Glucose 72 70 68 L 176 Test 05/07/18 12:34 05/07/18 16:56 05/07/18 21:42 05/08/18 00:25 Bedside Glucose 152 102 82 99 Test 05/08/18 05:35 05/08/18 07:28 Bedside Glucose 99 98 Home Meds Reported Medications Ipratropium-Albuterol (Ipratropium-Albuterol) 0.5-3 Mg/3 Ml Ampul.neb, 3 ML INHALATION Q6 PRN for SHORTNESS OF BREATH, #30 VIAL 05/02/18 Lorazepam* (Lorazepam*) 1 Mg Tablet, 1 MG G-TUBE Q4H PRN for ANXIETY, #30 TAB 05/02/18 Insulin Aspart* (Novolog Insulin Pen*) 100 Unit/Ml Soln, 0 SC .SLIDING SCALE AC, EA INJECT PER SLIDING SCALE;IF 0-149= 0 UNIT; 10-199= 3UNITS; 200-249= 4 UNITS; 250-299= 7UNITS; 300-349= 10UNITS; 350-399=12UNITS; MORE THAN 400 GIVE 12 UNITS, AND NOTIFY MD, SUBCUTANEOUSLY EVERY 6HOURS FOR DM 05/02/18 Acetaminophen* (Acetaminophen*) 325 Mg Tablet, 650 MG GTB Q4H PRN for PAIN AND OR ELEVATED TEMP, #30 TAB 05/02/18 Fenofibrate Nanocrystallized* (Fenofibrate*) 48 Mg Tablet, 48 MG GTB DAILY for HYPERLIPIDIMIA, TAB 05/02/18 Collagenase* (Santyl*) 30 Gm Oint..gm., 1 APPLIC TOP .SOILED PRN for SOILED for 21 Days, #1 TUB 05/02/18 Lansoprazole* (Lansoprazole*) 30 Mg Capsule.dr, 30 MG GTB BID for GERD, CAP 05/02/18 Clopidogrel Bisulfate* (Clopidogrel Bisulfate*) 75 Mg Tablet, 75 MG G-TUBE DAILY for DVT, #30 TAB 05/02/18 Chlorhexidine Gluconate* (Chlorhexidine Gluconate*) 118 Ml Liquid, 15 ML TOP BID, ML GIVE 15ML BY MOUTH TWO TIMES A DAY FOR MOUTH CARE SWAB AND SUCTION 05/02/18 Magnesium Hydroxide* (Milk Of Magnesia*) 400 Mg/5 Ml Oral.susp, 30 ML GTB DAILY PRN for CONSTIPATION, ML 05/02/18 Midodrine* (Midodrine*) 5 Mg Tablet, 5 MG GTB TID for hypotension, TAB hold for systolic BP above 130 05/02/18 Linagliptin (TRADJENTA) 5 Mg Tablet, 5 MG GTB DAILY, TAB 05/02/18 Levothyroxine Sodium* (Levothyroxine Sodium*) 175 Mcg Tablet, 175 MCG GTB BEFORE BREAKFAST for HYPOTHYROIDISM, #30 TAB 05/02/18 Insulin Glargine* (Lantus*) 100 Unit/Ml Soln, 12 UNIT SC BID, #1 VIAL 05/02/18 Folic Acid* (Folic Acid*) 1 Mg Tablet, 1 MG G-TUBE DAILY for SUPPLEMENT, TAB 05/02/18 Mineral Oil* (Fleet* Mineral Oil Enema) 133 Ml Oil, 133 ML MD NEEDED PRN for CONSTIPATION, ENEMA 05/02/18 Bisacodyl (Dulcolax) 10 Mg Supp.rect, 10 MG RC Q48H PRN for CONSTIPATION, SUPP.RECT 05/02/18 Cholecalciferol* (Vitamin D3*) 1,000 Unit Tablet, 1000 UNIT G-TUBE DAILY for SUPPLEMENT, TAB GIVE 5 TABLETS VIA GTUBE DAILY 05/02/18 Bumetanide* (Bumetanide*) 1 Mg Tablet, 1 MG G-TUBE DAILY for DIURETIC, TAB 05/02/18 Atorvastatin* (Atorvastatin*) 40 Mg Tablet, 40 MG G-TUBE QHS for HYPERLPIDIMIA, #30 TAB 05/02/18 Lorazepam* (Lorazepam*) 1 Mg Tablet, 1 MG GTB Q6 PRN for ANXIETY, #60 TAB 05/02/18 Aspirin Ec (Aspir 81) 81 Mg Tablet.dr, 81 MG G-TUBE DAILY, #30 TAB 05/02/18 Glycerin/Propylene Glycol (ARTIFICIAL TEARS DROPS) 30 Ml Drops, 30 ML OP PRN for DRY EYES, BOTTLE 05/02/18 Peg 400/Hypromellose/Glycerin (ARTIFICIAL TEARS DROPS) 15 Ml Drops, 2 DROP OP Q2H PRN for dry eyes, BOTTLE 05/02/18 Allopurinol* (Allopurinol*) 100 Mg Tablet, 100 MG GTB DAILY for GOUT, TAB 05/02/18 Medications Current Medications Miscellaneous Information (Pending Santyl Order For Wound Care) This patient monroy... PRN PRN XX WOUND CARE; Start 05/02/18 at 08:00 Miscellaneous Information 1 ea NOTE XX ; Start 05/02/18 at 08:30 Glucose (Glutose) 15 gm Q15M PRN PO DECREASED GLUCOSE; Start 05/02/18 at 08:30 Glucose (Glutose) 22.5 gm Q15M PRN PO DECREASED GLUCOSE; Start 05/02/18 at 08:30 Dextrose (D50w Syringe) 25 ml Q15M PRN IV DECREASED GLUCOSE Last administered on 05/07/18at 12:00; Admin Dose 25 ML; Start 05/02/18 at 08:30 Dextrose (D50w Syringe) 50 ml Q15M PRN IV DECREASED GLUCOSE; Start 05/02/18 at 08:30 Glucagon (Glucagen) 1 mg Q15M PRN IM DECREASED GLUCOSE; Start 05/02/18 at 08:30 Glucose (Glutose) 15 gm Q15M PRN BUCCAL DECREASED GLUCOSE; Start 05/02/18 at 08:30 Acetaminophen (Tylenol Tab) 650 mg Q4H PRN GTB MILD PAIN(1-3)OR ELEVATED TEMP; Start 05/02/18 at 08:30 Allopurinol (Zyloprim) 100 mg DAILY GTB Last administered on 05/08/18at 08:09; Admin Dose 100 MG; Start 05/02/18 at 09:00 Atorvastatin Calcium (Lipitor) 40 mg QHS GTB Last administered on 05/07/18at 21:44; Admin Dose 40 MG; Start 05/02/18 at 21:00 Bisacodyl (Dulcolax Supp) 10 mg Q48H PRN MD CONSTIPATION; Start 05/02/18 at 08:30 Cholecalciferol (Vitamin D) 1,000 unit DAILY GTB Last administered on 05/08/18at 08:09; Admin Dose 1,000 UNIT; Start 05/02/18 at 09:00 Fenofibrate (Tricor) 48 mg DAILY GTB Last administered on 05/08/18at 08:10; Admin Dose 48 MG; Start 05/02/18 at 09:00 Folic Acid (Folic Acid) 1 mg DAILY GTB Last administered on 05/08/18at 08:09; Admin Dose 1 MG; Start 05/02/18 at 09:00 Albuterol/ Ipratropium (Duoneb) 3 ml Q6 PRN NEB SHORTNESS OF BREATH Last administered on 05/07/18 03:09; Admin Dose 3 ML; Start 05/02/18 at 08:30 Lansoprazole (Prevacid) 30 mg BID GTB Last administered on 05/08/18 08:09; Admin Dose 30 MG; Start 05/02/18 at 09:00 Levothyroxine Sodium (Synthroid) 175 mcg BEFORE BREAKFAST GTB Last administered on 05/08/18 06:12; Admin Dose 175 MCG; Start 05/03/18 at 07:00 Linagliptin (Tradjenta) 5 mg DAILY GTB Last administered on 05/08/18 08:10; Admin Dose 5 MG; Start 05/02/18 at 09:00 Lorazepam (Ativan) 1 mg Q4H PRN GTB ANXIETY; Start 05/02/18 at 08:30 Magnesium Hydroxide (Milk Of Mag) 30 ml DAILY PRN GTB CONSTIPATION; Start 05/02/18 at 08:30 Midodrine (Proamatine) 5 mg TID GTB Last administered on 05/08/18 08:10; Admin Dose 5 MG; Start 05/02/18 at 09:00 Diagnostic Test (Pha) (Accu-Chek) 1 ea AC MEALS AND BEDTIME XX Last administered on 05/08/18at 07:29; Admin Dose 1 EA; Start 05/02/18 at 11:20 Collagenase (Santyl) 1 applic PRN PRN TOP NEEDED FOR " SOILED AREA(S); Start 05/02/18 at 13:00 Collagenase (Santyl) 1 applic BID TOP Last administered on 05/08/18 08:09; Admin Dose 1 APPLIC; Start 05/02/18 at 21:00 Insulin Aspart (Novolog Insulin Pen) (Adult SC Insulin - Mild Algorithm)... Q6 SC Last administered on 05/05/18at 12:10; Admin Dose 1 UNIT; Start 05/03/18 at 06:00 Alteplase, Recombinant (Cathflo (Activase)) 2 mg MAY REPEAT X1 PRN CATHETER IF CATHETER REMAINS OCCULUDED; Start 05/03/18 at 07:30 Piperacillin Sod/ Tazobactam Sod 50 ml @ 100 mls/hr Q8 IVPB Last administered on 05/08/18 06:12; Admin Dose 100 MLS/HR; Start 05/04/18 at 14:00 Mupirocin (Bactroban) 1 applic BID TOP Last administered on 05/08/18 08:10; Admin Dose 1 APPLIC; Start 05/05/18 at 11:30 Bumetanide (Bumex) 1 mg DAILY IV Last administered on 05/08/18 08:10; Admin Dose 1 MG; Start 05/06/18 at 09:00 Furosemide (Lasix) 40 mg DAILY IV Last administered on 05/08/18 08:10; Admin Dose 40 MG; Start 05/07/18 at 11:30 Insulin Glargine (Lantus) 10 units BID SC Last administered on 05/08/18 07:31; Admin Dose 10 UNITS; Start 05/07/18 at 21:00 Assessment/Plan Hospital Course (Demo Recall) Atrial fibrillation/flutter with rapid ventricular response: Currently heart rate is under control. 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 Awaiting IR procedure Statin will be continued as well Transfusion as needed. Currently H&H remained stable Continue to monitor on telemetry cont diuretics as tolerated Thank you for his referral will continue to monitor with you YVON WATTERS MD [facility] YVON WATTERS MD May 08, 2018 08:32
[2018-05-08] MEDS ORDERED: POTASSIUM CHLORIDE 20 MEQ POWDER FOR ORAL SOLN GTB ONE (09:00)
--- NOTE | 2018-05-08 09:42 | PN ---
DATE: 05/08/2018 SUBJECTIVE: The patient is stable. There have been no further episodes of bleeding from trachea sit e. The patient has not been accepted to a tertiary center for evaluation of possible embolization. No other events noted. OBJECTIVE: VITAL SIGNS: Blood pressure is 117/47, respirations 20, pulse 66, temperature 98.3. HEENT: Head is normocephalic. NECK: Supple. HEART: Regular rate. LUNGS: Show diminished breath sounds at the base. ABDOMEN: Soft, nontender to palpation without rebound or guarding. EXTREMITIES: Negative for clubbing, cyanosis, no edema. DERMATOLOGIC: No rashes. MUSCULOSKELETAL: No joint effusion. NEUROLOGIC: No change in exam. MEDICATIONS: Reviewed. LABORATORY DATA: Reviewed. ASSESSMENT AND PLAN: 1. Acute tracheal bleed, etiology is felt to be possibly due to a distal branch of the left external carotid artery. The patient was seen by ENT, could not find a source of bleeding. Recommended IR i ntervention. Unfortunately, unable to have the patient transferred to tertiary center or [facility], as the patient is no longer actively bleeding. At this point, we will continue to monitor c losely. 2. Ventilator-dependent respiratory failure. Vent settings and ABG was reviewed. Continue to monit or. 3. Sepsis secondary to urinary tract infection. Continue current antibiotic regimen. 4. Dysphagia, status post percutaneous endoscopic gastrostomy. Continue tube feeding. 5. Anemia. The patient is status post blood transfusion secondary to tracheal bleed. Continue to m onitor hemoglobin and hematocrit levels. 6. Hypernatremia, improved. 7. Volume overload secondary to congestive heart failure. Continue current diuretic regimen. 8. Diabetes. Continue current insulin regimen. 9. Dyslipidemia. Continue statin therapy. 10. Coronary artery disease. Continue medical management. 11. Peripheral arterial disease. 12. Hypothyroidism. Continue Synthroid. 13. Lower extremity wounds. Continue wound care. 14. Gastrointestinal and deep vein thrombosis prophylaxis. DISPOSITION: We will place the [facility] evaluation for the patient. Dictated By: ROLY MACKAY DO NR/PROMISE Conf#: [id number] DID#: [id number] CC: SAMY PHILLIPS DO; ALISON OLGUIN MD;*EndCC*
--- NOTE | 2018-05-08 09:54 | CONS ---
Assessment/Plan Assessment/Plan Assessment/Plan (Daily) Ventilator setting; AC of 10, tidal volume 450, PEEP of 5, 30% FiO2. Assessment and recommendations; 1. Patient with history of VD RF admitted for hypoxemia which is a combination of CHF as well as sepsis from UTI. 2. Chest x-ray showing persistent congestive heart failure pattern. Started on intravenous Lasix yesterday. 3. History of prior CABG. 4. Chronic renal insufficiency with continually improving renal function. 5. History of diabetes and hypothyroidism. 6. History of pulmonary hypertension. 7. Anemia. Continue current supportive care. Obtain follow-up chest x-ray 24 hours. Consultation Date/Type/Reason Admit Date/Time May 02, 2018 at 01:32 Initial Consult Date 05/02/18 Type of Consult Pulmonary Patient's condition is stable. Remains awake and alert. Has remained hemodynamically stable. Requesting Provider: JAMES GIRARD Date/Time of Note DATE: 05/08/18 TIME: 09:51 24 HR Interval Summary Free Text/Dictation Patient's condition has remained stable. Has remained hemodynamically stable. Patient denies any shortness of breath, chest pain, abdominal pain. General exam; elderly woman, on ventilator via tracheostomy, awake and alert. Currently in no distress. Exam/Review of Systems Exam Vitals Vital Signs Date Temp Pulse Resp B/P (MAP) Pulse Ox O2 O2 Flow FiO2 Time Delivery Rate 05/08/18 98 08:54 05/08/18 98.3 20 117/47 98 07:35 (70) 05/08/18 30 05:05 05/08/18 Mechanical 04:00 Ventilator Intake and Output 05/07/18 05/07/18 05/08/18 1515:00 23:00 07:00 IntakeIntake Total 940 ml 865 ml OutputOutput Total 1750 ml 800 ml BalanceBalance -810 ml 65 ml Exam HEENT exam; supple neck, positive JVD. No lymphadenopathy. Midline trachea. No thyromegaly. Tracheostomy in place. Patient is edentulous. No neck masses. Chest exam; diminished breath sounds bilaterally. S1-S2 audible, no murmurs. Regular rhythm. There is a well-healed sternal scar. Abdomen exam; soft, nondistended. No organomegaly. G-tube in place. Bowel sounds audible. Extremity exam; no peripheral edema. [employer] exam; patient is awake alert follows simple commands moves all 4 extremities but exhibiting generalized weakness. Results Result Diagram: 05/08/18 0758 05/08/18 0758 Results 24hrs Laboratory Tests Test 05/07/18 11:54 05/07/18 11:55 05/07/18 12:21 05/07/18 12:34 Bedside Glucose 70 68 L 176 152 Test 05/07/18 16:56 05/07/18 21:42 05/08/18 00:25 05/08/18 05:35 Bedside Glucose 102 82 99 99 Test 05/08/18 07:28 05/08/18 07:58 Bedside Glucose 98 White Blood Count 10.3 Red Blood Count 3.27 L Hemoglobin 10.1 L Hematocrit 32.7 L Mean Corpuscular 100.0 Volume Mean Corpuscular 30.9 Hemoglobin Mean Corpuscular 30.9 L Hemoglobin Concent Red Cell 18.3 H Distribution Width Platelet Count 357 Mean Platelet Volume 9.9 Immature 0.500 H Granulocytes % Neutrophils % 70.0 Lymphocytes % 23.4 Monocytes % 4.3 Eosinophils % 1.4 Basophils % 0.4 Nucleated Red Blood 0.0 Cells % Immature 0.050 H Granulocytes # Neutrophils # 7.2 Lymphocytes # 2.4 Monocytes # 0.4 Eosinophils # 0.1 Basophils # 0.0 Nucleated Red Blood 0.0 Cells # Sodium Level 136 Potassium Level 3.5 Chloride Level 89 L Carbon Dioxide Level 39 H Anion Gap 8 Blood Urea Nitrogen 67 H Creatinine 1.32 H Est Glomerular Filtrat Rate mL/min Glucose Level 81 Calcium Level 8.1 L Phosphorus Level 3.2 Magnesium Level 2.5 Medications Medication Current Medications Miscellaneous Information [facility] This patient monroy... PRN PRN XX WOUND CARE; Start 05/02/18 at 08:00 Miscellaneous Information 1 ea NOTE XX ; Start 05/02/18 at 08:30 Glucose (Glutose) 15 gm Q15M PRN PO DECREASED GLUCOSE; Start 05/02/18 at 08:30 Glucose (Glutose) 22.5 gm Q15M PRN PO DECREASED GLUCOSE; Start 05/02/18 at 08:30 Dextrose (D50w Syringe) 25 ml Q15M PRN IV DECREASED GLUCOSE Last administered on 05/07/18at 12:00; Admin Dose 25 ML; Start 05/02/18 at 08:30 Dextrose (D50w Syringe) 50 ml Q15M PRN IV DECREASED GLUCOSE; Start 05/02/18 at 08:30 Glucagon (Glucagen) 1 mg Q15M PRN IM DECREASED GLUCOSE; Start 05/02/18 at 08:30 Glucose (Glutose) 15 gm Q15M PRN BUCCAL DECREASED GLUCOSE; Start 05/02/18 at 08:30 Acetaminophen (Tylenol Tab) 650 mg Q4H PRN GTB MILD PAIN(1-3)OR ELEVATED TEMP; Start 05/02/18 at 08:30 Allopurinol (Zyloprim) 100 mg DAILY GTB Last administered on 05/08/18 08:09; Admin Dose 100 MG; Start 05/02/18 at 09:00 Atorvastatin Calcium (Lipitor) 40 mg QHS GTB Last administered on 05/07/18at 21:44; Admin Dose 40 MG; Start 05/02/18 at 21:00 Bisacodyl (Dulcolax Supp) 10 mg Q48H PRN [place] CONSTIPATION; Start 05/02/18 at 08:30 Cholecalciferol (Vitamin D) 1,000 unit DAILY GTB Last administered on 05/08/18 08:09; Admin Dose 1,000 UNIT; Start 05/02/18 at 09:00 Fenofibrate (Tricor) 48 mg DAILY GTB Last administered on 05/08/18 08:10; Admin Dose 48 MG; Start 05/02/18 at 09:00 Folic Acid (Folic Acid) 1 mg DAILY GTB Last administered on 05/08/18 08:09; Admin Dose 1 MG; Start 05/02/18 at 09:00 Albuterol/ Ipratropium (Duoneb) 3 ml Q6 PRN NEB SHORTNESS OF BREATH Last administered on 05/07/18 03:09; Admin Dose 3 ML; Start 05/02/18 at 08:30 Lansoprazole (Prevacid) 30 mg BID GTB Last administered on 05/08/18 08:09; Admin Dose 30 MG; Start 05/02/18 at 09:00 Levothyroxine Sodium (Synthroid) 175 mcg BEFORE BREAKFAST GTB Last administered on 05/08/18 06:12; Admin Dose 175 MCG; Start 05/03/18 at 07:00 Linagliptin (Tradjenta) 5 mg DAILY GTB Last administered on 05/08/18 08:10; Admin Dose 5 MG; Start 05/02/18 at 09:00 Lorazepam (Ativan) 1 mg Q4H PRN GTB ANXIETY; Start 05/02/18 at 08:30 Magnesium Hydroxide (Milk Of Mag) 30 ml DAILY PRN GTB CONSTIPATION; Start 05/02/18 at 08:30 Midodrine (Proamatine) 5 mg TID GTB Last administered on 05/08/18 08:10; Admin Dose 5 MG; Start 05/02/18 at 09:00 Diagnostic Test (Pha) (Accu-Chek) 1 ea AC MEALS AND BEDTIME XX Last administered on 05/08/18 07:29; Admin Dose 1 EA; Start 05/02/18 at 11:20 Collagenase (Santyl) 1 applic PRN PRN TOP NEEDED FOR " SOILED AREA(S); Start 05/02/18 at 13:00 Collagenase (Santyl) 1 applic BID TOP Last administered on 05/08/18 08:09; Admin Dose 1 APPLIC; Start 05/02/18 at 21:00 Insulin Aspart (Novolog Insulin Pen) (Adult SC Insulin - Mild Algorithm)... Q6 SC Last administered on 05/05/18 12:10; Admin Dose 1 UNIT; Start 05/03/18 at 06:00 Alteplase, Recombinant (Cathflo (Activase)) 2 mg MAY REPEAT X1 PRN CATHETER IF CATHETER REMAINS OCCULUDED; Start 05/03/18 at 07:30 Piperacillin Sod/ Tazobactam Sod 50 ml @ 100 mls/hr Q8 IVPB Last administered on 05/08/18 06:12; Admin Dose 100 MLS/HR; Start 05/04/18 at 14:00 Mupirocin (Bactroban) 1 applic BID TOP Last administered on 05/08/18 08:10; Admin Dose 1 APPLIC; Start 05/05/18 at 11:30 Bumetanide (Bumex) 1 mg DAILY IV Last administered on 05/08/18 08:10; Admin Dose 1 MG; Start 05/06/18 at 09:00 Furosemide (Lasix) 40 mg DAILY IV Last administered on 05/08/18 08:10; Admin Dose 40 MG; Start 05/07/18 at 11:30 Insulin Glargine (Lantus) 10 units BID SC Last administered on 05/08/18at 07:31; Admin Dose 10 UNITS; Start 05/07/18 at 21:00 YOSSI MONTOYA 20, 2019 09:54
--- NOTE | 2018-05-08 11:10 | CONS ---
Assessment/Plan Assessment/Plan Hospital Course (Demo Recall) No events, looks comfortable, no fevers Blood cultures since admission negative urine culture grew enterococcus Antimicrobials: Zosyn, topical Bactroban PHYSICAL EXAMINATION: GENERAL: This is a well-developed, chronically ill-appearing, obese, elderly woman who is awake and lying comfortably in bed. HEENT: Head atraumatic, normocephalic. Sclerae anicteric. Buccal mucosa dry. NECK: Supple. Tracheostomy present. CHEST: Rise symmetrical. Breath sounds clear, diminished to bases. HEART: S1, S2. ABDOMEN: Obese, soft. Bowel sounds present. EXTREMITIES: With trace edema. SKIN: The patient has a sacral decub and multiple ecchymotic areas on her upper extremities. Assessment: 1. S/p sepsis, present on admission 2. Urinary tract infection 3. Acute tracheal bleed with acute anemia on admission status post 4 units of PRBC 4. Healthcare associated pneumonia, possibly aspiration 5. Diabetes 6. Dysphagia 7. MRSA colonization Plan: Remains stable, continue present care and, continue antibiotics for couple more days, Brook faust Consultation Date/Type/Reason Admit Date/Time May 02, 2018 at 01:32 Initial Consult Date 05/02/18 Type of Consult id Requesting Provider: JAMES GIRARD Date/Time of Note DATE: 05/08/18 TIME: 11:09 Exam/Review of Systems Exam Vitals Vital Signs Date Temp Pulse Resp B/P (MAP) Pulse Ox O2 O2 Flow FiO2 Time Delivery Rate 05/08/18 98 08:54 05/08/18 30 08:20 05/08/18 98.3 20 117/47 98 07:35 (70) 05/08/18 Mechanical 04:00 Ventilator Intake and Output 05/07/18 05/07/18 05/08/18 1515:00 23:00 07:00 IntakeIntake Total 940 ml 865 ml OutputOutput Total 1750 ml 800 ml BalanceBalance -810 ml 65 ml Results Result Diagram: 05/08/18 0758 05/08/18 0758 Results 24hrs Laboratory Tests Test 05/07/18 11:54 05/07/18 11:55 05/07/18 12:21 05/07/18 12:34 Bedside Glucose 70 68 L 176 152 Test 05/07/18 16:56 05/07/18 21:42 05/08/18 00:25 05/08/18 05:35 Bedside Glucose 102 82 99 99 Test 05/08/18 07:28 05/08/18 07:58 Bedside Glucose 98 White Blood Count 10.3 Red Blood Count 3.27 L Hemoglobin 10.1 L Hematocrit 32.7 L Mean Corpuscular 100.0 Volume Mean Corpuscular 30.9 Hemoglobin Mean Corpuscular 30.9 L Hemoglobin Concent Red Cell 18.3 H Distribution Width Platelet Count 357 Mean Platelet Volume 9.9 Immature 0.500 H Granulocytes % Neutrophils % 70.0 Lymphocytes % 23.4 Monocytes % 4.3 Eosinophils % 1.4 Basophils % 0.4 Nucleated Red Blood 0.0 Cells % Immature 0.050 H Granulocytes # Neutrophils # 7.2 Lymphocytes # 2.4 Monocytes # 0.4 Eosinophils # 0.1 Basophils # 0.0 Nucleated Red Blood 0.0 Cells # Sodium Level 136 Potassium Level 3.5 Chloride Level 89 L Carbon Dioxide Level 39 H Anion Gap 8 Blood Urea Nitrogen 67 H Creatinine 1.32 H Est Glomerular Filtrat Rate mL/min Glucose Level 81 Calcium Level 8.1 L Phosphorus Level 3.2 Magnesium Level 2.5 Medications Medication Current Medications Miscellaneous Information (Pending [facility] Order For Wound Care) This patient monroy... PRN PRN XX WOUND CARE; Start 05/02/18 at 08:00 Miscellaneous Information 1 ea NOTE XX ; Start 05/02/18 at 08:30 Glucose (Glutose) 15 gm Q15M PRN PO DECREASED GLUCOSE; Start 05/02/18 at 08:30 Glucose (Glutose) 22.5 gm Q15M PRN PO DECREASED GLUCOSE; Start 05/02/18 at 08:30 Dextrose (D50w Syringe) 25 ml Q15M PRN IV DECREASED GLUCOSE Last administered on 05/07/18at 12:00; Admin Dose 25 ML; Start 05/02/18 at 08:30 Dextrose (D50w Syringe) 50 ml Q15M PRN IV DECREASED GLUCOSE; Start 05/02/18 at 08:30 Glucagon (Glucagen) 1 mg Q15M PRN IM DECREASED GLUCOSE; Start 05/02/18 at 08:30 Glucose (Glutose) 15 gm Q15M PRN BUCCAL DECREASED GLUCOSE; Start 05/02/18 at 08:30 Acetaminophen (Tylenol Tab) 650 mg Q4H PRN GTB MILD PAIN(1-3)OR ELEVATED TEMP; Start 05/02/18 at 08:30 Allopurinol (Zyloprim) 100 mg DAILY GTB Last administered on 05/08/18 08:09; Admin Dose 100 MG; Start 05/02/18 at 09:00 Atorvastatin Calcium (Lipitor) 40 mg QHS GTB Last administered on 05/07/18 21:44; Admin Dose 40 MG; Start 05/02/18 at 21:00 Bisacodyl (Dulcolax Supp) 10 mg Q48H PRN [place] CONSTIPATION; Start 05/02/18 at 08:30 Cholecalciferol (Vitamin D) 1,000 unit DAILY GTB Last administered on 05/08/18 08:09; Admin Dose 1,000 UNIT; Start 05/02/18 at 09:00 Fenofibrate (Tricor) 48 mg DAILY GTB Last administered on 05/08/18 08:10; Admin Dose 48 MG; Start 05/02/18 at 09:00 Folic Acid (Folic Acid) 1 mg DAILY GTB Last administered on 05/08/18 08:09; Admin Dose 1 MG; Start 05/02/18 at 09:00 Albuterol/ Ipratropium (Duoneb) 3 ml Q6 PRN NEB SHORTNESS OF BREATH Last administered on 05/07/18 03:09; Admin Dose 3 ML; Start 05/02/18 at 08:30 Lansoprazole (Prevacid) 30 mg BID GTB Last administered on 05/08/18 08:09; Admin Dose 30 MG; Start 05/02/18 at 09:00 Levothyroxine Sodium (Synthroid) 175 mcg BEFORE BREAKFAST GTB Last administered on 05/08/18 06:12; Admin Dose 175 MCG; Start 05/03/18 at 07:00 Linagliptin (Tradjenta) 5 mg DAILY GTB Last administered on 05/08/18 08:10; Admin Dose 5 MG; Start 05/02/18 at 09:00 Lorazepam (Ativan) 1 mg Q4H PRN GTB ANXIETY; Start 05/02/18 at 08:30 Magnesium Hydroxide (Milk Of Mag) 30 ml DAILY PRN GTB CONSTIPATION; Start 05/02/18 at 08:30 Midodrine (Proamatine) 5 mg TID GTB Last administered on 05/08/18 08:10; Admin Dose 5 MG; Start 05/02/18 at 09:00 Diagnostic Test (Pha) (Accu-Chek) 1 ea AC MEALS AND BEDTIME XX Last administered on 05/08/18 07:29; Admin Dose 1 EA; Start 05/02/18 at 11:20 Collagenase (Santyl) 1 applic PRN PRN TOP NEEDED FOR " SOILED AREA(S); Start 05/02/18 at 13:00 Collagenase (Santyl) 1 applic BID TOP Last administered on 05/08/18 08:09; Admin Dose 1 APPLIC; Start 05/02/18 at 21:00 Insulin Aspart (Novolog Insulin Pen) (Adult SC Insulin - Mild Algorithm)... Q6 SC Last administered on 05/05/18 12:10; Admin Dose 1 UNIT; Start 05/03/18 at 06:00 Alteplase, Recombinant (Cathflo (Activase)) 2 mg MAY REPEAT X1 PRN CATHETER IF CATHETER REMAINS OCCULUDED; Start 05/03/18 at 07:30 Piperacillin Sod/ Tazobactam Sod 50 ml @ 100 mls/hr Q8 IVPB Last administered on 05/08/18 06:12; Admin Dose 100 MLS/HR; Start 05/04/18 at 14:00 Mupirocin (Bactroban) 1 applic BID TOP Last administered on 05/08/18 08:10; Admin Dose 1 APPLIC; Start 05/05/18 at 11:30 Bumetanide (Bumex) 1 mg DAILY IV Last administered on 05/08/18 08:10; Admin Dose 1 MG; Start 05/06/18 at 09:00 Insulin Glargine (Lantus) 10 units BID SC Last administered on 05/08/18 07:31; Admin Dose 10 UNITS; Start 05/07/18 at 21:00 JESSICA TORRES NP May 08, 2018 11:10
--- NOTE | 2018-05-08 15:34 | RADRPT ---
Vent Rate: 64 bpm RR Interval: 0 msec ND Interval: 0 msec QRS Duration: 102 msec QT Interval: 402 msec QTC Interval: 414 msec P-R-T [place]: 0 - 9 - 0 degrees Atrial fibrillation Nonspecific T wave abnormality , probably digitalis effect Abnormal ECG Electronically Signed By: Dany Desai
[2018-05-08] MEDS: ATORVASTATIN 40 MG TAB GTB SCH (21:02)
--- NOTE | 2018-05-14 02:26 | EN ---
Date/Time of Note Date/Time of Note DATE: 05/14/18 TIME: 02:26 ER Progress Note Critical Care: Time: 45 minutes, independent of any separately billable procedural time Treatments/Evaluations: Close monitoring and treatment of unstable vital signs, cardiorespiratory, and neurologic status, while maintaining tight balance of fluid, respiratory, and cardiac interventions. JAMES GIARRD May 14, 2018 02:26
== END 2018-05-08 23:50 | DRG 870 ==
LOC: E/R 22:19 → TEL 05-02 01:32
PROVIDERS: ADMIT Internal Medicine Nephrology; ATTEND Internal Medicine Nephrology
PROC: 5A1955Z Respiratory Ventilation, Greater than 96 Consecutive Hours (ICD-10-PCS; 2018-05-01)
PROC: 0BJ08ZZ Inspection of Tracheobronchial Tree, Via Natural or Artificial Opening Endoscopic (ICD-10-PCS; principal; 2018-05-02)
PROC: 30233N1 Transfusion of Nonautologous Red Blood Cells into Peripheral Vein, Percutaneous Approach (ICD-10-PCS; 2018-05-02)
PROC: 0CJS8ZZ Inspection of Larynx, Via Natural or Artificial Opening Endoscopic (ICD-10-PCS; 2018-05-02)
DX: A41.9 Sepsis, unspecified organism (principal); J96.91 Respiratory failure, unspecified with hypoxia; J18.9 Pneumonia, unspecified organism; J69.0 Pneumonitis due to inhalation of food and vomit; I50.33 Acute on chronic diastolic (congestive) heart failure; J95.01 Hemorrhage from tracheostomy stoma; Z99.11 Dependence on respirator [ventilator] status; E87.1 Hypo-osmolality and hyponatremia; N17.9 Acute kidney failure, unspecified; N39.0 Urinary tract infection, site not specified; I13.0 Hypertensive heart and chronic kidney disease with heart failure and stage 1 through stage 4 chronic kidney disease, or unspecified chronic kidney disease; D62 Acute posthemorrhagic anemia; I73.9 Peripheral vascular disease, unspecified; I48.91 Unspecified atrial fibrillation; E03.9 Hypothyroidism, unspecified; E11.8 Type 2 diabetes mellitus with unspecified complications; E78.5 Hyperlipidemia, unspecified; F41.9 Anxiety disorder, unspecified; N18.9 Chronic kidney disease, unspecified; Z95.1 Presence of aortocoronary bypass graft; M10.9 Gout, unspecified; R04.0 Epistaxis; I25.10 Atherosclerotic heart disease of native coronary artery without angina pectoris; Z99.81 Dependence on supplemental oxygen; K21.9 Gastro-esophageal reflux disease without esophagitis; E66.9 Obesity, unspecified; Z68.36 Body mass index [BMI] 36.0-36.9, adult; R13.10 Dysphagia, unspecified; R60.1 Generalized edema; I27.20 Pulmonary hypertension, unspecified; Z66 Do not resuscitate; B95.2 Enterococcus as the cause of diseases classified elsewhere
CPT/HCPCS: 36415; 36430; 36600; 70498; 71045; 76856; 80048; 80053; 80162; 81001; 81003; 82043; 82803; 82962; 83690; 83735; 84100; 84155; 84300; 85025; 85610; 85730; 86850; 86900; 86901; 86920; 87040; 87081; 87086; 93005; 93306; 94002; 94003; 94664; J0692; J1815; J1940; J2543; P9016; Q9967

== ENCOUNTER 2018-06-07 12:02 | Day surgery (SDC) | payer MEDICARE, OTHER ==
--- NOTE | 2018-06-06 17:31 | PREAC ---
Date/Time of Note Date/Time of Note DATE: 06/06/18 TIME: 17:30 Anesthesia Eval and Record Evaluation Time Pre-Procedure Interview DATE: 06/06/18 TIME: 17:30 Age 88 Sex female NPO: 8 hrs Preoperative diagnosis evaluation Planned procedure EGD Past Medical History Past Medical History: Includes Cardio: HTN, Dyslipidemia, CABG, Arrythmia (afib), Other (peripheral arterial disease) Endo: Diabetes, Hypothyroid Surgery & Anesthesia Issues No known issue Meds Anticoagulation: No Beta Darian within 24 hr: No Reason Beta Darian not given: Pt. not on B-Darian Reported Medications Ipratropium-Albuterol (Ipratropium-Albuterol) 0.5-3 Mg/3 Ml Ampul.neb, 3 ML INHALATION Q6 PRN for SHORTNESS OF BREATH, #30 VIAL 05/02/18 Lorazepam* (Lorazepam*) 1 Mg Tablet, 1 MG G-TUBE Q4H PRN for ANXIETY, #30 TAB 05/02/18 Insulin Aspart* (Novolog Insulin Pen*) 100 Unit/Ml Soln, 0 SC .SLIDING SCALE AC, EA INJECT PER SLIDING SCALE;IF 0-149= 0 UNIT; 10-199= 3UNITS; 200-249= 4 UNITS; 250-299= 7UNITS; 300-349= 10UNITS; 350-399=12UNITS; MORE THAN 400 GIVE 12 UNITS, AND NOTIFY MD, SUBCUTANEOUSLY EVERY 6HOURS FOR DM 05/02/18 Acetaminophen* (Acetaminophen*) 325 Mg Tablet, 650 MG GTB Q4H PRN for PAIN AND OR ELEVATED TEMP, #30 TAB 05/02/18 Fenofibrate Nanocrystallized* (Fenofibrate*) 48 Mg Tablet, 48 MG GTB DAILY for HYPERLIPIDIMIA, TAB 05/02/18 Collagenase* (Santyl*) 30 Gm Oint..gm., 1 APPLIC TOP .SOILED PRN for SOILED for 21 Days, #1 TUB 05/02/18 Lansoprazole* (Lansoprazole*) 30 Mg Capsule.dr, 30 MG GTB BID for GERD, CAP 05/02/18 Clopidogrel Bisulfate* (Clopidogrel Bisulfate*) 75 Mg Tablet, 75 MG G-TUBE DAILY for DVT, #30 TAB 05/02/18 Chlorhexidine Gluconate* (Chlorhexidine Gluconate*) 118 Ml Liquid, 15 ML TOP BID, ML GIVE 15ML BY MOUTH TWO TIMES A DAY FOR MOUTH CARE SWAB AND SUCTION 05/02/18 Magnesium Hydroxide* (Milk Of Magnesia*) 400 Mg/5 Ml Oral.susp, 30 ML GTB DAILY PRN for CONSTIPATION, ML 05/02/18 Midodrine* (Midodrine*) 5 Mg Tablet, 5 MG GTB TID for hypotension, TAB hold for systolic BP above 130 05/02/18 Linagliptin (TRADJENTA) 5 Mg Tablet, 5 MG GTB DAILY, TAB 05/02/18 Levothyroxine Sodium* (Levothyroxine Sodium*) 175 Mcg Tablet, 175 MCG GTB BEFORE BREAKFAST for HYPOTHYROIDISM, #30 TAB 05/02/18 Insulin Glargine* (Lantus*) 100 Unit/Ml Soln, 12 UNIT SC BID, #1 VIAL 05/02/18 Folic Acid* (Folic Acid*) 1 Mg Tablet, 1 MG G-TUBE DAILY for SUPPLEMENT, TAB 05/02/18 Mineral Oil* (Fleet* Mineral Oil Enema) 133 Ml Oil, 133 ML NE NEEDED PRN for CONSTIPATION, ENEMA 05/02/18 Bisacodyl (Dulcolax) 10 Mg Supp.rect, 10 MG RC Q48H PRN for CONSTIPATION, SUPP.RECT 05/02/18 Cholecalciferol* (Vitamin D3*) 1,000 Unit Tablet, 1000 UNIT G-TUBE DAILY for SUPPLEMENT, TAB GIVE 5 TABLETS VIA GTUBE DAILY 05/02/18 Bumetanide* (Bumetanide*) 1 Mg Tablet, 1 MG G-TUBE DAILY for DIURETIC, TAB 05/02/18 Atorvastatin* (Atorvastatin*) 40 Mg Tablet, 40 MG G-TUBE QHS for HYPERLPIDIMIA, #30 TAB 05/02/18 Lorazepam* (Lorazepam*) 1 Mg Tablet, 1 MG GTB Q6 PRN for ANXIETY, #60 TAB 05/02/18 Aspirin Ec (Aspir 81) 81 Mg Tablet.dr, 81 MG G-TUBE DAILY, #30 TAB 05/02/18 Glycerin/Propylene Glycol (ARTIFICIAL TEARS DROPS) 30 Ml Drops, 30 ML OP PRN for DRY EYES, BOTTLE 05/02/18 Peg 400/Hypromellose/Glycerin (ARTIFICIAL TEARS DROPS) 15 Ml Drops, 2 DROP OP Q2H PRN for dry eyes, BOTTLE 05/02/18 Allopurinol* (Allopurinol*) 100 Mg Tablet, 100 MG GTB DAILY for GOUT, TAB 05/02/18 Meds reviewed: Yes Allergies Coded Allergies: No Known Allergy (Unverified , 05/02/18) Allergies Reviewed: Yes Labs/Studies Labs Reviewed: Reviewed by anesthesiologist test: N/A Studies: ECG (afib), CXR (Extensive infiltrates throughout both lungs with potential small pleural effusions.) Pre-procedure Exam Airway: Adequate mouth opening Mallampati: Mallampati II Teeth: Normal Lung: Normal Heart: Normal ASA Physical Status ASA physical status: 3 Emergency: None Planned Anesthetic General/MAC: MAC Pre-operative Attestations Prior to commencing anesthesia and surgery, the patient was re-evaluated, there was verification of: *The patient's identity *The results of appropriate recent lab work and preoperative vital signs *The above evaluation not changing prior to induction *Anesthetic plan, risk benefits, alternative and complications discussed with patient/family; questions answered; patient/family understands, accepts and wishes to proceed. RANJEET CONKLIN Jun 06, 2018 17:31
[2018-06-07] VITALS (8 sets, daily range): BP systolic 99–113; BP diastolic 48–55; PULSE 60–79; RESP 15–20; Ht 162.6 cm; Wt 94.5 kg
[~2018-06-07] VITALS: Ht 162.6 cm; Wt 94.5 kg
[~2018-06-07 12:02] MED LIST changes: +ACET325T45 GTB; +ALLO100T GTB; +ASPI-535 G-TUBE; +ATOR40TA68 G-TUBE; +BISA10SU55 RC; +BUME1TAB G-TUBE; +CHLO118L3 TOP; +CHOL100062 G-TUBE; +CLOP75TA19 G-TUBE; +FENO48TA4 GTB; +FOLI-49 G-TUBE; +GLYC30DR4 OP; +IPRA3AMP29 INHALATION; +LANS30CA GTB; +LANT3I SC; +LEVO175T6 GTB; +LINA5TAB GTB; +LORA1TAB G-TUBE; +LORA1TAB GTB; +MAGN400O19 GTB; +MIDO5TAB GTB; +MINE133E23 PR; +NOVO3I SC; +PEG15DRO4 OP; -PROPOFOL 200 MG INJ ONE; +SAN30GM TOP
[2018-06-07] MEDS ORDERED: ETOMIDATE 20 MG INJ ONE (17:07)
--- NOTE | 2018-06-07 17:24 | HPN ---
Date/Time of Note Date/Time of Note DATE: 06/07/18 TIME: 17:24 Interval H&P Admission Note Pt. seen H&P reviewed: No system changes LORA STANLEY MD Jun 07, 2018 17:24
--- NOTE | 2018-06-07 17:41 | PAC ---
Date/Time of Note Date/Time of Note DATE: 06/07/18 TIME: 17:41 Post-Anesthesia Notes Post-Anesthesia Note Last documented vital signs Vital Signs Date Temp Pulse Resp B/P (MAP) Pulse Ox O2 O2 Flow FiO2 Time Delivery Rate 06/07/18 97.7 60 20 106/55 100 Mechanical 11:40 (72) Ventilator Activity: WNL Respiratory function: WNL Cardiovascular function: WNL Mental status: Baseline Pain reasonably controlled: Yes Hydration appropriate: Yes Nausea/Vomiting absent: Yes DINORAH MEAD MD Jun 07, 2018 17:41
--- NOTE | 2018-06-07 20:41 | GILP ---
DATE OF PROCEDURE: 06/07/2018 PROCEDURE PERFORMED: EGD with biopsy. INDICATION: An 88-year-old female undergoing this procedure for positive stool guaiac and anemia. S he had a colonoscopy few months ago, which showed multiple polyps. Those were removed. INFORMED CONSENT: The risk of the procedure, related and unrelated complications, anesthetic risks, alternatives were discussed. Informed consent was obtained. DESCRIPTION OF PROCEDURE: The patient was brought to OR room #1, sedated by Dr. Ca. After optimal sedation, scope was passed with much ease into esophagus which was grossly within normal limits. Z line was at 40 cm, which was regular. Stomach mucosa revealed mild gastritis. Biopsies obtained. D uodenal mucosa revealed duodenitis with 0.5 cm raised plaque, which was biopsied. A second part and third part all were within normal limits. No AVM identified. Scope was brought back into the stomac h. Retroversion done, no growth was seen. No ulcer identified. Scope was straightened out and nathan ciara with good patient tolerance. We also examined the internal stoma of the bump of the G-tube site, which was normal. IMPRESSION: 1. Normal esophagus. 2. Z line at 40 cm regular. 3. Mild gastritis. 4. Duodenitis with a raised hyperemic patch near the apex of the duodenum on the medial wall. It wa s 0.5 cm in diameter, biopsied #4, so second part of the duodenum, and the third part was within norm al limits. PLAN: Review histopathology. Continue proton pump inhibitor. Plan is to continue H2 elizabeth or pro ton pump inhibitor. We will review the histopathology and the monitor hemoglobin and hematocrit. Dictated By: LORA MOSELEY/PROMISE Conf#: [id number] DID#: [id number] CC: LORA STANLEY MD; ROLY MACKAY DO;*EndCC*
== END 2018-06-11 05:56 ==
LOC: SDS 12:02 → GIL 12:02
PROVIDERS: ATTEND Internal Medicine Gastroenterology
DX: K29.80 Duodenitis without bleeding (principal); E03.9 Hypothyroidism, unspecified; E78.5 Hyperlipidemia, unspecified; I12.9 Hypertensive chronic kidney disease with stage 1 through stage 4 chronic kidney disease, or unspecified chronic kidney disease; E11.22 Type 2 diabetes mellitus with diabetic chronic kidney disease; N18.3 Chronic kidney disease, stage 3 (moderate); I25.10 Atherosclerotic heart disease of native coronary artery without angina pectoris; J44.9 Chronic obstructive pulmonary disease, unspecified
CPT/HCPCS: 88305; 88312; 94002